=== PATIENT | male | born 1970 | race Caucasian/White ===

== ENCOUNTER 2017-08-23 16:29 | Emergency (ER) | payer MEDICAID, SELFPAY ==
[2017-08-23 16:47] VITALS: BP 145/91; PULSE 121; RESP 18; TEMP 37.6; O2SAT 99; BMI 36.1
[2017-08-23 17:16] LABS: Strep Scrn Group A (Rapid) Positive (Negative)
--- NOTE | 2017-08-23 17:54 | HMH.EDGENADL ---
ED Disposition Clinical Impression: Strep pharyngitis Disposition: Home, Self-Care Condition on Discharge: Good Instructions: DI for Strep Throat Additional Instructions: Please alternate Motrin Tylenol for pain control, plenty of fluids, take antibiotics prescribed as directed, follow-up with PCP if not better within 2 days. Prescriptions: Amoxicillin/Potassium Clav [Augmentin 875-125 Tablet] 1 tab PO Q12H #20 tab Referrals: Nick Mcrae [Primary Care Provider] - Time of Disposition: 18:00 - Critical Care Critical Care Time: No Attestation: On 08/23/17, the high probability of a clinically significant, sudden or life threatening deterioration of the following system(s) required my full and direct attention, intervention and personal management. The time I documented below is in addition to time spent performing reported procedures but includes the following listed in this critical care notation. Medical Decision Making - Medical Records Medical records reviewed: Yes: I reviewed the patient's medical records. Vital Signs: 08/23/17 16:47 Temperature 99.6 F Temperature Source Oral Pulse Rate [Right Brachial] 121 H Respiratory Rate 18 Blood Pressure [145/91] 145/91 Blood Pressure Mean [145/91] 109 Blood Pressure Source [145/91] Automatic Cuff Blood Pressure Position [145/91] Sitting 02 Sat by Pulse Oximetry 99 Oxygen Delivery Method Room Air - Lab Data Lab results reviewed: Yes: I reviewed the patient's lab results. Lab Results 08/23/17 16:45: Influenza Type A Ag Negative, Influenza Type B Ag Negative, Group A Strep Rapid Positive A - Gerson Inquiry Pt receiving controlled substance: No - Reevaluation(s) Time: 17:45 Reevaluation #1: Patient still complains with sore throat, advised of results, instructed to start immediately on Tylenol/Motrin and ill his antibiotics. Patient urged to return to the emergency room if not better within 2 days or follow-up with PCP. General Adult HPI - General Chief complaint: PAIN Stated complaint: Sore throat Mode of Arrival: Ambulatory Limitations: No Limitations Description of Symptoms (Recalled from ER Triage Doc. by RN): sore throat x 2 days - History of Present Illness HPI narrative: Patient is a 47-year-old male here with sore throat for the past 24 hours, and subjective fever Onset (ago): day(s) (1) Radiation: non-radiation Severity: moderate Severity scale (1-10): 8 Consistency: constant - Related Data Previous Rx's Medication Instructions Recorded Amoxicillin/Potassium Clav 1 tab PO Q12H #20 tab 08/23/17 [Augmentin 875-125 Tablet] Allergies Allergy/AdvReac Type Severity Reaction Status Date / Time NO KNOWN ALLERGIES Allergy Uncoded 07/04/17 14:37 [facility] History I have reviewed the patient's past medical history: Yes - *Social History Educational Level: Completed High School Alcohol Intake: never - Psychiatric History Expresses thoughts of harming self/others: None Suicide Plan Description: No Plan ROS Obtained: Yes All systems reviewed & no additional complaints - ENT Ears, Nose, Mouth, and Throat: Reports sore throat Physical Exam - General General appearance: alert, in distress (moderate) - Head Head exam: atraumatic, normocephalic, normal inspection - ENT ENT exam: Present: mucous membranes moist, TM's normal bilaterally, normal external ear exam, other (Originally female with whitish exudates) - Neck Neck exam: Present: normal inspection, full ROM, trachea midline, lymphadenopathy (Bilateral tender cervical adenopathy). Absent: meningismus - Chest Chest inspection: Present: normal inspection, symmetric chest wall rise. Absent: tenderness - Respiratory Respiratory exam: Present: normal lung sounds bilaterally. Absent: respiratory distress - Cardiovascular Cardiovascular exam: Present: regular rate, normal rhythm. Absent: JVD - Abdominal Exam Abdominal exam: Present:
--- NOTE | 2017-08-23 17:59 | ED_ITS ---
ED Disposition Clinical Impression: Strep pharyngitis Disposition: Home, Self-Care Condition on Discharge: Good Instructions: DI for Strep Throat Additional Instructions: Please alternate Motrin Tylenol for pain control, plenty of fluids, take antibiotics prescribed as directed, follow-up with PCP if not better within 2 days. Prescriptions: Amoxicillin/Potassium Clav [Augmentin 875-125 Tablet] 1 tab PO Q12H #20 tab Referrals: Nick Mcrae [Primary Care Provider] - Time of Disposition: 18:00 - Critical Care Critical Care Time: No Attestation: On 08/23/17, the high probability of a clinically significant, sudden or life threatening deterioration of the following system(s) required my full and direct attention, intervention and personal management. The time I documented below is in addition to time spent performing reported procedures but includes the following listed in this critical care notation. Medical Decision Making - Medical Records Medical records reviewed: Yes: I reviewed the patient's medical records. Vital Signs: 08/23/17 16:47 Temperature 99.6 F Temperature Source Oral Pulse Rate [Right Brachial] 121 H Respiratory Rate 18 Blood Pressure [145/91] 145/91 Blood Pressure Mean [145/91] 109 Blood Pressure Source [145/91] Automatic Cuff Blood Pressure Position [145/91] Sitting 02 Sat by Pulse Oximetry 99 Oxygen Delivery Method Room Air - Lab Data Lab results reviewed: Yes: I reviewed the patient's lab results. Lab Results 08/23/17 16:45: Influenza Type A Ag Negative, Influenza Type B Ag Negative, Group A Strep Rapid Positive A - Gerson Inquiry Pt receiving controlled substance: No - Reevaluation(s) Time: 17:45 Reevaluation #1: Patient still complains with sore throat, advised of results, instructed to start immediately on Tylenol/Motrin and ill his antibiotics. Patient urged to return to the emergency room if not better within 2 days or follow-up with PCP. General Adult HPI - General Chief complaint: PAIN Stated complaint: Sore throat Mode of Arrival: Ambulatory Limitations: No Limitations Description of Symptoms (Recalled from ER Triage Doc. by RN): sore throat x 2 days - History of Present Illness HPI narrative: Patient is a 47-year-old male here with sore throat for the past 24 hours, and subjective fever Onset (ago): day(s) (1) Radiation: non-radiation Severity: moderate Severity scale (1-10): 8 Consistency: constant - Related Data Previous Rx's Medication Instructions Recorded Amoxicillin/Potassium Clav 1 tab PO Q12H #20 tab 08/23/17 [Augmentin 875-125 Tablet] Allergies Allergy/AdvReac Type Severity Reaction Status Date / Time NO KNOWN ALLERGIES Allergy Uncoded 07/04/17 14:37 [facility] History I have reviewed the patient's past medical history: Yes - *Social History Educational Level: Completed High School Alcohol Intake: never - Psychiatric History Expresses thoughts of harming self/others: None Suicide Plan Description: No Plan ROS Obtained: Yes All systems reviewed & no additional complaints - ENT Ears, Nose, Mouth, and Throat: Reports sore throat Physical Exam - General General appearance: alert, in distress (moderate) - Head Head exam: atraumatic, normocephalic, normal inspec
[2017-08-23 18:35] VITALS: BP 132/75; PULSE 85; RESP 18; TEMP 36.7; O2SAT 98
== END 2017-08-23 18:34 | disposition home or self-care (01) ==
PROVIDERS: Emergency Provider Emergency Medicine; Family Provider Family Medicine; PCP Family Medicine
DX: J02.0 Streptococcal pharyngitis (principal)
CPT/HCPCS: 87275; 87276; 87430; 99203; 99281

== ENCOUNTER 2017-09-11 18:18 | Emergency (ER) | payer MEDICAID, SELFPAY ==
[2017-09-11 18:22] VITALS: BP 154/92; PULSE 109; RESP 26; TEMP 37.4; O2SAT 95
--- NOTE | 2017-09-11 18:26 | XR_ITS ---
XR chest 2V Ordering Physician: Harish Hernandez MD Patient Age: 47 years: Male HISTORY: ITS.REASON: dyspnea TECHNIQUE: PA and lateral chest COMPARISON : Chest film 03/03/[address] abdomen April 2012 FINDINGS \ . right chest Healing recent fractures of the posterior right sixth seventh and eighth ribs there is some associated density here which likely reflects some minimal pleural reaction or fluid adjacent to the fractures. No pneumothorax evident right lung apex Vascularity is upper normal. Heart normal size balwinder and mediastinal structures satisfactory Left chest healing eighth rib fracture noted. There is minimal density towards the left base which I suspect reflects mainly atelectasis. Difficult to exclude minimal wispy infiltrate at left base involving left lower lobe and possibly lingula as the left cardiac apex is obscured by these features.. A previous CT abdomen showed a moderate size calcified granuloma at the posterior left base which may add to appearance intensity medial left base as well . IMPRESSION: 1. Recent appearing healing rib fractures at the posterior right sixth, seventh & eighth ribs 2. Old remote healing fracture at the lateral eighth rib 3. Bibasilar atelectasis most evident at left base 4. Question minimal wispy infiltrate associated at the left base, LLL and possible lingula.
[2017-09-11 18:44] VITALS: PULSE 104; PULSE 99
[2017-09-11 19:02] LABS: Basophils # 0.1 K/mm3 (0-0.2); Basophils % 0.7 % (0.1-2.0); Eosinophils # 0.6 K/mm3 (0.0-0.4); Eosinophils % 5.1 % (0.1-12.0); Hemoglobin 15.2 g/dL (14.1-18.0); Lymphocytes # 1.6 K/mm3 (0.7-4.5); Lymphocytes % 13.4 K/mm3 (10-50); Mean Corpuscular HGB Conc 33.1 g/dL (31.8-35.4); Mean Corpuscular Hemoglobin 29.5 pg (27.0-31.2); Mean Corpuscular Volume 89.1 fl (80-94); Mean Platelet Volume 8.9 fl (7.4-10.4); Monocytes # 0.6 K/mm3 (0.1-1.0); Neutrophils # 8.8 K/mm3 (1.8-7.8); Neutrophils % 75.7 % (37.0-80.0); Platelet Count 223 K/mm3 (142-424); Red Blood Count 5.16 M/mm3 (4.60-6.20); Red Cell Distribution Width 13.8 % (11.5-17.5); White Blood Count 11.6 K/mm3 (4.8-10.8)
[2017-09-11 19:08] LABS: Lactic Acid 1.1 mmol/L (0.4-2.0)
[2017-09-11 19:12] LABS: Alanine Aminotransferase 53 U/L (12-78); Albumin Level 4.1 gm/dL (3.4-5.0); Albumin/Globulin Ratio 1.1 (1.1-1.8); Alkaline Phosphatase 94 U/L (46-116); Aspartate Amino Transferase 22 U/L (15-37); Bilirubin,Total 0.6 mg/dL (0.2-1.0); Blood Urea Nitrogen 15 mg/dL (7-18); Calcium 8.5 mg/dL (8.5-10.1); Carbon Dioxide 30 mmol/L (21.0-32.0); Chloride 103 mmol/L (98-107); Creatinine Clearance Estimated 145 mL/min (0-300); Creatinine,Serum 1.02 mg/dL (0.70-1.30); Estimated Glomerular Filt Rate 78 ml/min (>60); GFR (African American) 95 ML/MIN (>60); Globulin 3.9 gm/dl (1.3-3.2); Glucose 88 mg/dL (74-106); Sodium 140 mmol/L (136-145)
--- NOTE | 2017-09-11 20:01 | HMH.EDSOB ---
ED Disposition Clinical Impression: COPD exacerbation Acute bronchitis Qualifiers: Bronchitis organism: unspecified organism Qualified Code(s): J20.9 - Acute bronchitis, unspecified Disposition: Home, Self-Care Condition on Discharge: Good Instructions: DI for Chronic Obstructive Pulmonary Disease, DI for Acute Bronchitis Additional Instructions: Please quit smoking! Take the medications prescribed as directed, follow-up with PCP within 2 days for mandatory reevaluation. Prescriptions: levoFLOXacin [Levaquin 750mg tablet] 750 mg PO DAILY #10 tab predniSONE [Prednisone 20mg Tab] 20 mg PO TID #15 tab Referrals: Nick Mcrae [Primary Care Provider] - Time of Disposition: 20:10 - Critical Care Critical Care Time: No Attestation: On 09/11/17, the high probability of a clinically significant, sudden or life threatening deterioration of the following system(s) required my full and direct attention, intervention and personal management. The time I documented below is in addition to time spent performing reported procedures but includes the following listed in this critical care notation. Medical Decision Making - Medical Records Medical records reviewed: Yes: I reviewed the patient's medical records. Vital Signs: 09/11/17 18:22 09/11/17 18:44 Temperature 99.4 F Temperature Source Oral Pulse Rate 104 H Pulse Rate [Right Radial] 109 H Respiratory Rate 26 H Blood Pressure [Right Arm] 154/92 Blood Pressure Mean [Right Arm] 112 Blood Pressure Source [Right Arm] Automatic Cuff Blood Pressure Position [Right Arm] Sitting 02 Sat by Pulse Oximetry 95 Oxygen Delivery Method Room Air - Lab Data Lab results reviewed: Yes: I reviewed the patient's lab results. Lab Results 09/11/17 18:40: WBC 11.6 H, RBC 5.16, Hgb 15.2, Hct 46.0, MCV 89.1, MCH 29.5, MCHC 33.1, RDW 13.8, Plt Count 223, MPV 8.9, Neut % (Auto) 75.7, Lymph % (Auto) 13.4, [place] % (Auto) 5.0, Eos % (Auto) 5.1, Baso % (Auto) 0.7, Neut # (Auto) 8.8 H, Lymph # (Auto) 1.6, [place] # (Auto) 0.6, Eos # (Auto) 0.6 H, Baso # (Auto) 0.1 09/11/17 18:40: Sodium 140, Potassium 4.0, Chloride 103, Carbon Dioxide 30, Anion Gap 11.0, BUN 15, Creatinine 1.02, Estimated Creat Clear 145, Estimated GFR 78, Est GFR ( Amer) 95, Glucose 88, Calcium 8.5, Total Bilirubin 0.6, AST 22, ALT 53, Alkaline Phosphatase 94, Total Protein 8.0, Albumin 4.1, Globulin 3.9 H, Albumin/Globulin Ratio 1.1 09/11/17 18:40: Lactic Acid 1.1 09/11/17 18:40: Influenza Type A Ag Negative, Influenza Type B Ag Negative Result diagrams: 09/11/17 18:40 09/11/17 18:40 Orders (Tests/Meds): ED MEDICATIONS Discontinued Medications Generic Name Dose Route Start Last Admin Trade Name Freq PRN Reason Stop Dose Admin Acetaminophen 650 mg 09/11/17 19:42 09/11/17 19:49 Acetaminophen 325mg Tab PO 09/11/17 19:43 650 mg ONCE ONE Administration Albuterol/Ipratropium 3 ml 09/11/17 18:27 09/11/17 18:43 Duoneb 3ml Neb IH 09/11/17 18:28 3 ml ONCE ONE Administration Ceftriaxone Sodium 1 gm 09/11/17 18:26 09/11/17 19:35 Rocephin 1gm Vial IV 09/11/17 18:27 1 gm ONCE ONE Administration Lidocaine HCl 0 ml 09/11/17 18:26 09/11/17 18:39 Lidocaine 1% 10ml Mdv IM 09/11/17 18:27 Not Given ONCE ONE Methylprednisolone Sodium Succinate 125 mg 09/11/17 18:26 09/11/17 18:38 Solu-Medrol 125mg/2ml Vial IV 09/11/17 18:27 125 mg ONCE ONE Administration ORDERS Category Date Time Status Blood Culture Stat Micro 09/11/17 18:40 Received Sputum Culture & Gram Stain Stat Micro 09/11/17 19:35 Received - Radiology Data #1 Image(s): Chest Image Reviewed: Yes I reviewed the patient's radiology results, Yes I reviewed the patient's radiology image, Yes I discussed the image results w/the radiologist, Yes I have reviewed radiologist's interpretation Preliminary Findings: Normal/NAD - Gerson Inquiry Pt receiving controlled subs
--- NOTE | 2017-09-11 20:09 | ED_ITS ---
ED Disposition Clinical Impression: COPD exacerbation Acute bronchitis Qualifiers: Bronchitis organism: unspecified organism Qualified Code(s): J20.9 - Acute bronchitis, unspecified Disposition: Home, Self-Care Condition on Discharge: Good Instructions: DI for Chronic Obstructive Pulmonary Disease, DI for Acute Bronchitis Additional Instructions: Please quit smoking! Take the medications prescribed as directed, follow-up with PCP within 2 days for mandatory reevaluation. Prescriptions: levoFLOXacin [Levaquin 750mg tablet] 750 mg PO DAILY #10 tab predniSONE [Prednisone 20mg Tab] 20 mg PO TID #15 tab Referrals: Nick Mcrae [Primary Care Provider] - Time of Disposition: 20:10 - Critical Care Critical Care Time: No Attestation: On 09/11/17, the high probability of a clinically significant, sudden or life threatening deterioration of the following system(s) required my full and direct attention, intervention and personal management. The time I documented below is in addition to time spent performing reported procedures but includes the following listed in this critical care notation. Medical Decision Making - Medical Records Medical records reviewed: Yes: I reviewed the patient's medical records. Vital Signs: 09/11/17 18:22 09/11/17 18:44 Temperature 99.4 F Temperature Source Oral Pulse Rate 104 H Pulse Rate [Right Radial] 109 H Respiratory Rate 26 H Blood Pressure [Right Arm] 154/92 Blood Pressure Mean [Right Arm] 112 Blood Pressure Source [Right Arm] Automatic Cuff Blood Pressure Position [Right Arm] Sitting 02 Sat by Pulse Oximetry 95 Oxygen Delivery Method Room Air - Lab Data Lab results reviewed: Yes: I reviewed the patient's lab results. Lab Results 09/11/17 18:40: WBC 11.6 H, RBC 5.16, Hgb 15.2, Hct 46.0, MCV 89.1, MCH 29.5, MCHC 33.1, RDW 13.8, Plt Count 223, MPV 8.9, Neut % (Auto) 75.7, Lymph % (Auto) 13.4, [place] % (Auto) 5.0, Eos % (Auto) 5.1, Baso % (Auto) 0.7, Neut # (Auto) 8.8 H, Lymph # (Auto) 1.6, [place] # (Auto) 0.6, Eos # (Auto) 0.6 H, Baso # (Auto) 0.1 09/11/17 18:40: Sodium 140, Potassium 4.0, Chloride 103, Carbon Dioxide 30, Anion Gap 11.0, BUN 15, Creatinine 1.02, Estimated Creat Clear 145, Estimated GFR 78, Est GFR ( Amer) 95, Glucose 88, Calcium 8.5, Total Bilirubin 0.6 , AST 22, ALT 53, Alkaline Phosphatase 94, Total Protein 8.0, Albumin 4.1, Globulin 3.9 H, Albumin/Globulin Ratio 1.1 09/11/17 18:40: Lactic Acid 1.1 09/11/17 18:40: Influenza Type A Ag Negative, Influenza Type B Ag Negative Result diagrams: 09/11/17 18:40 09/11/17 18:40 Orders (Tests/Meds): ED MEDICATIONS Discontinued Medications Generic Name Dose Route Start Last Admin Trade Name Freq PRN Reason Stop Dose Admin Acetaminophen 650 mg 09/11/17 19:42 09/11/17 19:49 Acetaminophen 325mg Tab PO 09/11/17 19:43 650 mg ONCE ONE Administration Albuterol/Ipratropium 3 ml 09/11/17 18:27 09/11/17 18:43 Duoneb 3ml Neb IH 09/11/17 18:28 3 ml ONCE ONE Administration Ceftriaxone Sodium 1 gm 09/11/17 18:26 09/11/17 19:35 Rocephin 1gm Vial IV 09/11/17 18:27 1 gm ONCE ONE Administration Lidocaine HCl 0 ml 09/11/17 18:26 09/11/17 18:39 Lidocaine 1% 10ml Mdv IM 09/11/17 18:27 Not Given ONCE ONE Methylprednisolone Sodium Succinate 125 mg
[2017-09-11 20:21] VITALS: BP 120/68; PULSE 93; RESP 16; TEMP 37.1; O2SAT 98
[2017-09-11 20:23] VITALS: BP 120/68; PULSE 93; RESP 16; TEMP 36.6; O2SAT 93
== END 2017-09-11 20:28 | disposition home or self-care (01) ==
PROVIDERS: Emergency Provider Emergency Medicine; Family Provider Family Medicine; PCP Family Medicine
DX: J44.0 Chronic obstructive pulmonary disease with (acute) lower respiratory infection (principal); J20.9 Acute bronchitis, unspecified; F17.210 Nicotine dependence, cigarettes, uncomplicated; J44.1 Chronic obstructive pulmonary disease with (acute) exacerbation; Z79.899 Other long term (current) drug therapy
CPT/HCPCS: 71046; 80053; 83605; 85025; 87040; 87070; 87205; 87275; 87276; 96365; 96374; 99283

== ENCOUNTER 2018-08-18 15:54 | Observation (INO) ==
--- NOTE | 2018-08-18 16:11 | Emergency Department Note ---
ED Disposition Clinical Impression: COPD exacerbation, Tobacco abuse, Obesity (BMI 30-39.9), Hypertension, Non compliance with medical treatment, Left lower lobe pneumonia Disposition: Still a Patient Condition on Discharge: Fair Referrals: Nick Mcrae [Primary Care Provider] - - Critical Care Critical Care Time: No Attestation: On 08/18/18, the high probability of a clinically significant, sudden or life threatening deterioration of the following system(s) required my full and direct attention, intervention and personal management. The time I documented below is in addition to time spent performing reported procedures but includes the following listed in this critical care notation. Medical Decision Making - Gerson Inquiry Pt receiving controlled substance: No Gerson was queried for this patient: No Vital Signs: 08/18/18 15:59 Temperature 97.9 F Temperature Source Oral Pulse Rate [Right Radial] 92 H Respiratory Rate 20 Blood Pressure [Right Arm] 138/89 Blood Pressure Mean [Right Arm] 105 Blood Pressure Source [Right Arm] Automatic Cuff Blood Pressure Position [Right Arm] Sitting 02 Sat by Pulse Oximetry 96 Oxygen Delivery Method Room Air - Lab Data Lab Results 08/18/18 16:08: Influenza Type A Ag Negative, Influenza Type B Ag Negative 08/18/18 16:08: Group A Strep Rapid Negative 08/18/18 16:10: WBC 6.4, RBC 4.89, Hgb 14.6, Hct 44.0, MCV 89.9, MCH 29.8, MCHC 33.1, RDW 14.0, Plt Count 182, MPV 7.8, Neut % (Auto) 58.0, Lymph % (Auto) 26.7, [place] % (Auto) 6.6, Eos % (Auto) 7.7, Baso % (Auto) 0.9, Neut # (Auto) 3.7, Lymph # (Auto) 1.7, [place] # (Auto) 0.4, Eos # (Auto) 0.5 H, Baso # (Auto) 0.1 08/18/18 16:10: Sodium 141, Potassium 4.2, Chloride 105, Carbon Dioxide 27, Anion Gap 13.2, BUN 15, Creatinine 0.91, Estimated Creat Clear 172, Estimated GFR 89, Est GFR ( Amer) 108, Glucose 94, Calcium 8.8, Total Bilirubin 0.3, AST 26, ALT 54, Alkaline Phosphatase 67, Troponin I < 0.02, Total Protein 7.0, Albumin 3.5, Globulin 3.5 H, Albumin/Globulin Ratio 1.0 L 08/18/18 16:10: D-Dimer 175 08/18/18 16:10: B-Natriuretic Peptide 24 08/18/18 16:10: Lactate 0.5 Result diagrams: 08/18/18 16:10 08/18/18 16:10 Orders (Tests/Meds): ED MEDICATIONS Generic Name Dose Route Start Last Admin Trade Name Freq PRN Reason Stop Dose Admin Sodium Chloride 10 ml 08/18/18 16:06 Saline Flush 10ml Syringe IV 09/17/18 16:05 NEEDED PRN Maintain IV Site Discontinued Medications Generic Name Dose Route Start Last Admin Trade Name Freq PRN Reason Stop Dose Admin Albuterol/Ipratropium 3 ml 08/18/18 16:06 Duoneb 3ml Neb IH 08/18/18 16:07 ONCE ONE Famotidine 20 mg 08/18/18 16:06 08/18/18 16:18 Pepcid 20mg/2ml Vial IV 08/18/18 16:07 20 mg ONCE ONE Administration Ceftriaxone Sodium 1 gm/ 50 mls @ 100 mls/hr 08/18/18 16:12 08/18/18 16:18 Sodium Chloride IV 08/18/18 16:41 100 mls/hr ONCE ONE Administration Protocol Ketorolac Tromethamine 30 mg 08/18/18 16:05 08/18/18 16:18 Toradol 30mg/Ml Vial IV 08/18/18 16:06 30 mg ONCE ONE Administration Methylprednisolone Sodium Succinate 125 mg 08/18/18 16:05 08/18/18 16:18 Solu-Medrol 125mg/2ml Vial IV 08/18/18 16:06 125 mg ONCE ONE Administration ORDERS Category Date Time Status Chest XR 2 view (NOT portable) [XR chest 2V] Stat Exams 08/18/18 16:06 Taken Blood Culture Stat Micro 08/18/18 16:10 Received Strep Screen Confirmation Stat Micro 08/18/18 16:08 Received - Radiology Data #1 Image(s): Chest Image Reviewed: Yes I reviewed the patient's radiology image Preliminary Findings: Abnormal Left lower lobe atelectasis versus infiltrate. Medical Decision Narrative: I discussed with the patient's chest x-ray findings and lab results. We discussed inpatient versus outpatient treatment. The patient rather prefer to be admitted and get well soon. Called Dr. Ochoa refrigeration tech for unassigned agreed to admit the patient for IV steroids, IV antibiotics, he recommended Rocephin and Zithromax.. Resp/SOB HPI - General Chief Complaint: Shortness of Breath/Dyspnea Stated Complaint: SOB Time Seen by Provider: 08/18/18 16:00 Mode of Arrival: Ambulatory Limitations: No Limitations Description of Symptoms (Recalled from ER Triage Doc. by RN): Pt reports SOA x3 days pt reports symptoms got worse lastnight, reports he had a fever lastnight. Pt reports hx of COPD - History of Present Illness 28 years old white male with history of tobacco addiction, hypertension and COPD. The past 4 days he has been experiencing progressive shortness of breath, wheezing, cough and productive, wheezing, fever, chills and body aches. Today he presented to the ED complaining of sore throat and wanted to be checked for strep and influenza. A fever of 102 yesterday. Denies having chest pain palpitations hemoptysis hematemesis coffee-ground emesis melanotic stool or bleeding per rectum. He denies having nausea vomiting or diarrhea. MD Complaint: shortness of breath, cough Onset (ago): day(s) (Progressive for the past 4 days.) Consistency/Duration: constant Relieving factors: rest Exacerbating factors: exertion Known history of: COPD Associated symptoms: fever, cough, wheezing Treatment prior to arrival: bronchodilator - Related Data Home oxygen amount: none Home Medications Medication Instructions Recorded Confirmed Atorvastatin Calcium [Atorvastatin 20 mg PO DAILY 09/11/17 08/18/18 20mg Tab] Cholecalciferol (Vitamin D3) 10,000 unit PO DAILY 09/11/17 08/18/18 [Vitamin D3 10,000 unit Cap] Losartan Potassium 50 mg PO DAILY 09/11/17 08/18/18 clonazePAM [Klonopin 1mg tablet] 1 mg PO TID 09/11/17 08/18/18 Allergies Allergy/AdvReac Type Severity Reaction Status Date / Time No Known Allergies Allergy Verified 03/11/18 23:22 [facility] History - Hepatitis A Screen Drug use history?: No High risk sexual behaviors?: No History of sexually transmitted infection?: No Currently employed?: No Childcare worker?: No Do you have indoor plumbing?: Yes Do you have electricity?: Yes Attestation statement:: This patient has been screened for Hepatitis A risk factors. 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 Absent: scleral icterus, nystagmus - ENT ENT exam: Present: normal exam, normal oropharynx, mucous membranes moist, TM's normal bilaterally, normal external ear exam - Neck Neck exam: Present: normal inspection, full ROM, trachea midline. Absent: tenderness, meningismus, lymphadenopathy - Chest Chest inspection: Present: normal inspection, symmetric chest wall rise. Absent: tenderness - Respiratory Respiratory exam: Present: normal lung sounds bilaterally, wheezes, other ( Increased anteroposterior diameter, moderate air entry and mild expiratory wheezing over the left upper chest.). Absent: respiratory distress - Cardiovascular Cardiovascular exam: Present: regular rate, normal rhythm. Absent: JVD - Abdominal Exam Abdominal exam: Present: soft, normal bowel sounds. Absent: distention, tenderness, guarding, rebound, rigidity, Shaw's sign, tenderness at McBurney's Point, ascites - Extremities Exam Extremities exam: Present: normal inspection, full ROM, normal capillary refill. Absent: calf tenderness - Back Exam Back exam: Present: normal inspection. Absent: tenderness, CVA tenderness (R), CVA tenderness (L), paraspinal tenderness, vertebral tenderness - Neurological Exam Neurological exam: Present: alert, oriented X3, CN II-XII intact, motor sensory deficit, reflexes normal - Psychiatric Psychiatric exam: Present: normal affect, normal mood - Skin Skin exam: Present: warm, dry, intact, normal color - Lymphatic Lymphatic Findings: no adenopathy
[2018-08-18 16:23] LABS: Basophils # 0.1 K/mm3 (0-0.2); Basophils % 0.9 % (0.1-2.0); Eosinophils # 0.5 K/mm3 (0.0-0.4); Eosinophils % 7.7 % (0.1-12.0); Hemoglobin 14.6 g/dL (14.1-18.0); Lymphocytes # 1.7 K/mm3 (0.7-4.5); Lymphocytes % 26.7 % (10-50); Mean Corpuscular HGB Conc 33.1 g/dL (31.8-35.4); Mean Corpuscular Hemoglobin 29.8 pg (27.0-31.2); Mean Corpuscular Volume 89.9 fl (80-94); Mean Platelet Volume 7.8 fl (7.4-10.4); Monocytes # 0.4 K/mm3 (0.1-1.0); Monocytes % 6.6 % (1.7-9.3); Neutrophils # 3.7 K/mm3 (1.8-7.8); Platelet Count 182 K/mm3 (142-424); Red Blood Count 4.89 M/mm3 (4.60-6.20); White Blood Count 6.4 K/mm3 (4.8-10.8)
[2018-08-18 16:40] LABS: Alanine Aminotransferase 54 U/L (12-78); Albumin Level 3.5 gm/dL (3.4-5.0); Alkaline Phosphatase 67 U/L (46-116); Anion Gap 13.2 mEq/L (5-15); Aspartate Amino Transferase 26 U/L (15-37); Bilirubin,Total 0.3 mg/dL (0.2-1.0); Blood Urea Nitrogen 15 mg/dL (7-18); Calcium 8.8 mg/dL (8.5-10.1); Carbon Dioxide 27 mmol/L (21.0-32.0); Chloride 105 mmol/L (98-107); Globulin 3.5 gm/dl (1.3-3.2); Glucose 94 mg/dL (74-106); Potassium 4.2 mmoL/L (3.5-5.1); Sodium 141 mmol/L (136-145)
[2018-08-19 06:52] LABS: Basophils % 0.2 % (0.1-2.0); Hematocrit 43.6 % (42.0-52.0); Lymphocytes % 13.9 % (10-50); Mean Corpuscular HGB Conc 32.2 g/dL (31.8-35.4); Mean Corpuscular Hemoglobin 29.2 pg (27.0-31.2); Mean Corpuscular Volume 90.7 fl (80-94); Mean Platelet Volume 7.8 fl (7.4-10.4); Monocytes # 0.2 K/mm3 (0.1-1.0); Monocytes % 2.3 % (1.7-9.3); Neutrophils # 6.2 K/mm3 (1.8-7.8); Neutrophils % 83.5 % (37.0-80.0); Platelet Count 199 K/mm3 (142-424); Red Blood Count 4.81 M/mm3 (4.60-6.20); Red Cell Distribution Width 13.8 % (11.5-17.5); White Blood Count 7.5 K/mm3 (4.8-10.8)
[2018-08-19 06:59] LABS: Anion Gap 12.3 mEq/L (5-15); Calcium 8.7 mg/dL (8.5-10.1); Potassium 4.3 mmoL/L (3.5-5.1)
--- NOTE | 2018-08-19 07:02 | H&P/Discharge Summary ---
General - General Admission date:: 08/18/18 Discharge date: 08/19/18 *Admission Date: 08/19/18 *Chief complaint: Cough shortness of breath *History of present illness: 48-year-old male presented to the urgent treatment clinic yesterday with complaint of sore throat. Patient has history of COPD and was wheezing in the urgent treatment clinic and was later evaluated by the ER physician. Workup revealed atelectasis versus an infiltrate in the lingula. Patient was actively wheezing. O2 sats remained in the mid to high 90s but because of patient's persistent complaint of shortness of breath and feeling poorly he was admitted for observation and treatment of his pneumonia. Patient did not sleep well overnight because of his cough but does report that he is feeling slightly better this morning. 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) - *Social History Educational Level: Completed High School Smoking Status: Current every day smoker Tobacco Type: cigarettes # Packs/Day (cigarettes): 2 #Yrs smoked (if former smoker): 32 Alcohol Intake: never Alcohol Intake Frequency:: holidays/special occasions only Occupational Status: employed Housing: house Household Members: spouse Travel in the last 8 weeks: None - Psychiatric History Expresses thoughts of harming self/others: None Suicide Plan Description: No Plan Review of Systems - Review of Systems Review of systems:: pertinent systems reviewed and negative unless documented below - Constitutional Reports body ache(s), Reports fever(s), Reports headache(s), Denies chills - ENT Reports dry mouth, Reports headache(s), Denies difficulty swallowing, Denies ear discharge, Denies ear pain, Denies nosebleed - *Cardiovascular Denies chest pain - *Respiratory Denies change in phlegm color Exam Vital signs and Labs for Last 24 Hours: Temp Pulse Resp BP Pulse Ox 97.5 F L 95 H 20 144/91 H 94 L 08/19/18 04:00 08/19/18 04:00 08/19/18 04:00 08/19/18 04:00 08/19/18 04:00 Laboratory Results - last 24 hr 08/18/18 16:08: Influenza Type A Ag Negative, Influenza Type B Ag Negative 08/18/18 16:08: Group A Strep Rapid Negative 08/18/18 16:10: WBC 6.4, RBC 4.89, Hgb 14.6, Hct 44.0, MCV 89.9, MCH 29.8, MCHC 33.1, RDW 14.0, Plt Count 182, MPV 7.8, Neut % (Auto) 58.0, Lymph % (Auto) 26.7, [place] % (Auto) 6.6, Eos % (Auto) 7.7, Baso % (Auto) 0.9, Neut # (Auto) 3.7, Lymph # (Auto) 1.7, [place] # (Auto) 0.4, Eos # (Auto) 0.5 H, Baso # (Auto) 0.1 08/18/18 16:10: Sodium 141, Potassium 4.2, Chloride 105, Carbon Dioxide 27, Anion Gap 13.2, BUN 15, Creatinine 0.91, Estimated Creat Clear 172, Estimated GFR 89, Est GFR ( Amer) 108, Glucose 94, Calcium 8.8, Total Bilirubin 0.3, AST 26, ALT 54, Alkaline Phosphatase 67, Troponin I < 0.02, Total Protein 7.0, Albumin 3.5, Globulin 3.5 H, Albumin/Globulin Ratio 1.0 L 08/18/18 16:10: D-Dimer 175 08/18/18 16:10: B-Natriuretic Peptide 24 08/18/18 16:10: Lactate 0.5 08/19/18 06:25: WBC 7.5, RBC 4.81, Hgb 14.0 L, Hct 43.6, MCV 90.7, MCH 29.2, MCHC 32.2, RDW 13.8, Plt Count 199, MPV 7.8, Neut % (Auto) 83.5 H, Lymph % (Auto) 13.9, [place] % (Auto) 2.3, Eos % (Auto) 0.0 L, Baso % (Auto) 0.2, Neut # (Auto) 6.2, Lymph # (Auto) 1.0, [place] # (Auto) 0.2, Eos # (Auto) 0.0, Baso # (Auto) 0.0 I & O for Last 24 hours: Intake & Output 08/16/18 08/17/18 08/18/18 08/19/18 11:59 11:59 11:59 11:59 Intake Total 50 / 50 Balance 50 / 50 Weight 269 lb 9 oz Narrative: Patient is awake and alert sitting up on the side of the bed. He looks tired but not ill. ENT exam is grossly normal. Neck is without lymphadenopathy. Lungs have diffuse faint end expiratory wheezes. Heart has a regular rate and rhythm. Abdomen is obese and soft. Motor function is intact in all extremities Hospital Course Hospital Course: Patient was admitted placed on IV Solu-Medrol, Rocephin and azithromycin and duo nebs. Patient got some relief from aerosols. By the following morning (August 19) patient was feeling better. He remained afebrile. His O2 sats had remained in the mid to high 90s. On exam patient had faint wheezing but no focal rales. Patient was discharged home and will follow up with his physician Dr. Marcelo within the next 3 days Results Labs on day of discharge: Labs from last 24 hours 08/19/18 08/18/18 08/18/18 06:25 16:10 16:10 WBC 7.5 RBC 4.81 Hgb 14.0 L Hct 43.6 MCV 90.7 MCH 29.2 MCHC 32.2 RDW 13.8 Plt Count 199 MPV 7.8 Neut % (Auto) 83.5 H Lymph % (Auto) 13.9 [place] % (Auto) 2.3 Eos % (Auto) 0.0 L Baso % (Auto) 0.2 Neut # (Auto) 6.2 Lymph # (Auto) 1.0 [place] # (Auto) 0.2 Eos # (Auto) 0.0 Baso # (Auto) 0.0 D-Dimer Sodium Potassium Chloride Carbon Dioxide Anion Gap BUN Creatinine Estimated Creat Clear Estimated GFR Est GFR ( Amer) Glucose Lactate 0.5 Calcium Total Bilirubin AST ALT Alkaline Phosphatase Troponin I B-Natriuretic Peptide 24 Total Protein Albumin Globulin Albumin/Globulin Ratio Influenza Type A Ag Influenza Type B Ag Group A Strep Rapid 08/18/18 08/18/1808/18/19 16:10 16:10 16:10 WBC 6.4 RBC 4.89 Hgb 14.6 Hct 44.0 MCV 89.9 MCH 29.8 MCHC 33.1 RDW 14.0 Plt Count 182 MPV 7.8 Neut % (Auto) 58.0 Lymph % (Auto) 26.7 [place] % (Auto) 6.6 Eos % (Auto) 7.7 Baso % (Auto) 0.9 Neut # (Auto) 3.7 Lymph # (Auto) 1.7 [place] # (Auto) 0.4 Eos # (Auto) 0.5 H Baso # (Auto) 0.1 D-Dimer 175 Sodium 141 Potassium 4.2 Chloride 105 Carbon Dioxide 27 Anion Gap 13.2 BUN 15 Creatinine 0.91 Estimated Creat Clear 172 Estimated GFR 89 Est GFR ( Amer) 108 Glucose 94 Lactate Calcium 8.8 Total Bilirubin 0.3 AST 26 ALT 54 Alkaline Phosphatase 67 Troponin I < 0.02 B-Natriuretic Peptide Total Protein 7.0 Albumin 3.5 Globulin 3.5 H Albumin/Globulin Ratio 1.0 L Influenza Type A Ag Influenza Type B Ag Group A Strep Rapid 08/18/18 08/18/18 16:08 16:08 WBC RBC Hgb Hct MCV MCH MCHC RDW Plt Count MPV Neut % (Auto) Lymph % (Auto) [place] % (Auto) Eos % (Auto) Baso % (Auto) Neut # (Auto) Lymph # (Auto) [place] # (Auto) Eos # (Auto) Baso # (Auto) D-Dimer Sodium Potassium Chloride Carbon Dioxide Anion Gap BUN Creatinine Estimated Creat Clear Estimated GFR Est GFR ( Amer) Glucose Lactate Calcium Total Bilirubin AST ALT Alkaline Phosphatase Troponin I B-Natriuretic Peptide Total Protein Albumin Globulin Albumin/Globulin Ratio Influenza Type A Ag Negative Influenza Type B Ag Negative Group A Strep Rapid Negative Discharge Medications - Medications for Discharge Home Medication List at Discharge: No Action Losartan Potassium 50 mg PO DAILY Atorvastatin Calcium [Atorvastatin 20mg Tab] 20 mg PO DAILY clonazePAM [Klonopin 1mg tablet] 1 mg PO TID Cholecalciferol (Vitamin D3) [Vitamin D3 10,000 unit Cap] 10,000 unit PO DAILY Disposition Disposition: Home, Self-Care
== END 2018-08-19 15:21 | disposition home or self-care (01) ==
LOC: 2ND 15:54 → ER 15:54 → 2ND 18:30
PROVIDERS: ADMIT Family Medicine; ATTEND Family Medicine
CPT/HCPCS: 36415; 71020; 71046; 80048; 80053; 83605; 83880; 84484; 85025; 85378; 87040; 87070; 87205; 87275; 87276; 87430; 90686; 96374; 96375; 99281; G0378; J0456

== ENCOUNTER → 2019-02-06 09:30 | Outpatient (CLI) | payer MEDICAID, SELFPAY ==
--- NOTE | 2019-02-06 09:41 | US_ITS ---
US abdomen limited History: Ordering Physician:Quirino Triana Patient Age: 48 years Comparison:None Findings:The visualized portions of the pancreas and IVC appear normal. Common bile duct is normal measuring 3.6 mm. There is diffuse increased echogenicity throughout the liver without focal abnormality. Visualized portions of the gallbladder and right kidney are normal. Portal vein is patent. Impression: No acute gallbladder process. Fatty infiltration or fibrosis of the liver.
--- NOTE | 2019-02-06 09:41 | NM_ITS ---
NM hepatobiliary w pharm HISTORY: ITS.REASON: GB PAIN, GB DISEASE ORDERING PHYSICIAN: Quirino Triana PATIENT AGE: 48 years COMPARISON: 02/06/2019. DOSE: 8.0 mCi of technetium 99m Choletec. FINDINGS: Homogeneous activity is present within the hepatic parenchyma. Activity is present in the gallbladder by 5 minutes.. Activity is present in the small bowel by 45 minutes.. The gallbladder ejection fraction is calculated to be 76%. The patient did not report pain or other symptoms during CCK infusion. IMPRESSION: Unremarkable hepatobiliary scan and gallbladder ejection fraction. No evidence of common or cystic duct obstruction with normal gallbladder ejection fraction
== END ==
PROVIDERS: PCP Family Medicine; Visit Provider Family Medicine
DX: R10.11 Right upper quadrant pain (principal); K82.9 Disease of gallbladder, unspecified
CPT/HCPCS: 76705; 78227; A9537; J2805

== ENCOUNTER 2020-11-03 12:37 | Observation (INO) | payer OTHER, SELFPAY ==
[2020-11-03] VITALS (10 sets, daily range): BP systolic 105–149; BP diastolic 68–97; PULSE 64–91; RESP 16–20; TEMP 36.3–36.9; O2SAT 95–99; BMI 39.3; BMI 38.6
--- NOTE | 2020-11-03 12:31 | ECG_ITS ---
APPROVED REPORT Exam: Resting ECG HR:89 bpm ECG Measurements Heart Rate 89 AXES CO 112 P 51 QRSd 100 QRS 86 QT 362 T 49 QTc 440 Conclusion Normal sinus rhythm Normal ECG Electronically signed by : Tarun Osuna, 11/04/2020 17:35:22
--- NOTE | 2020-11-03 12:40 | XR_ITS ---
PROCEDURE: XR CHEST 2V CLINICAL HISTORY: chest tightness COMPARISON: CR CXR2V XR chest 2V from 03/11/2018 CR CXR2V XR chest 2V from 08/18/2018 CR Chest from 12/23/2018 FINDINGS: The cardiomediastinal silhouette and pulmonary vascularity are within normal limits. The lungs are clear without infiltrates, suspicious nodules, or pleural effusions. Scarring at the left cardiophrenic angle as noted previously. Stable old healed fractures the right 6th and 7th and possibly 8th ribs posteriorly No acute bony abnormalities. There are moderate multilevel degenerate changes of the mid and lower thoracic spine. IMPRESSION: No acute findings. Dictated by: Dr. Harish Grimaldo MD 11/03/2020 13:14 Dr. Harish Grimaldo MD in [place] 11/03/2020 13:14
--- NOTE | 2020-11-03 12:42 | HMH.EDGENADL ---
ED Disposition Clinical Impression: Angina pectoris Disposition: Admitted as Observation Condition on Discharge: Good Referrals: Quirino Triana [Primary Care Provider] - - Critical Care Critical Care Time: No Attestation: On , the high probability of a clinically significant, sudden or life threatening deterioration of the following system(s) required my full and direct attention, intervention and personal management. The time I documented below is in addition to time spent performing reported procedures but includes the following listed in this critical care notation. Medical Decision Making - Medical Records Medical records reviewed: Yes: I reviewed the patient's medical records. MR Comment: Normal gallbladder ultrasound and hepatobiliary scan January 2019 - [place] Inquiry Pt receiving controlled substance: No Vital Signs: 11/03/20 12:39 11/03/20 13:00 11/03/20 14:22 Temperature 97.4 F L Temperature Source Oral Pulse Rate 74 71 Pulse Rate [Right Radial] 91 H Respiratory Rate 18 17 Blood Pressure 140/89 149/94 H Blood Pressure [Right Arm] 144/97 H Blood Pressure Mean 103 Blood Pressure Mean [Right Arm] 112 Blood Pressure Source [Right Arm] Automatic Cuff Blood Pressure Position [Right Arm] Sitting 02 Sat by Pulse Oximetry 99 97 98 Oxygen Delivery Method Room Air - Lab Data Lab Results 11/03/20 12:42: WBC 10.0, RBC 5.58, Hgb 16.5, Hct 50.8, MCV 91.2, MCH 29.6, MCHC 32.5, RDW 14.0, Plt Count 229, MPV 8.5, Neut % (Auto) 64.9, Lymph % (Auto) 25.8, [place] % (Auto) 4.6, Eos % (Auto) 3.2, Baso % (Auto) 1.5, Neut # (Auto) 6.5, Lymph # (Auto) 2.6, [place] # (Auto) 0.5, Eos # (Auto) 0.3, Baso # (Auto) 0.2 11/03/20 12:42: Sodium 138, Potassium 4.2, Chloride 104, Carbon Dioxide 26, Anion Gap 12.2, BUN 14, Creatinine 1.00, Estimated Creat Clear 155, Estimated GFR 79, Est GFR ( Amer) 96, Glucose 114 H, Calcium 9.3, Troponin I < 0.01 11/03/20 12:42: NT-Pro-B Natriuret Pep 12.3 11/03/20 12:42: Total Bilirubin 0.8, Direct Bilirubin 0.2, Conjugated Bilirubin 0.0, Indirect Bilirubin 0.6, Unconjugated Bilirubin 0.7, AST 52, ALT 83 H, Alkaline Phosphatase 68, Total Protein 7.6, Albumin 4.6, Lipase 104 Result diagrams: 11/03/20 12:42 11/03/20 12:42 Orders (Tests/Meds): ED MEDICATIONS Generic Name Dose Route Start Last Admin Trade Name Freq PRN Reason Stop Dose Admin Metoprolol Tartrate 25 mg 11/03/20 21:00 Metoprolol Tartrate 25mg Tablet PO 12/03/20 20:59 BID CARITO Discontinued Medications Generic Name Dose Route Start Last Admin Trade Name Freq PRN Reason Stop Dose Admin Aspirin 324 mg 11/03/20 13:02 11/03/20 13:20 Aspirin 81mg Chewable Tablet PO 11/03/20 13:03 324 mg ONCE ONE Administration Ticagrelor 180 mg 11/03/20 14:15 11/03/20 14:20 Ticagrelor 90mg Tablet PO 11/03/20 14:16 180 mg ONCE ONE Administration ORDERS Category Date Time Status Consult to Cardiology [CONS] Routine Cons 11/03/20 13:01 Active Full Resp Panel w/COVID ([facility]) Routine Lab 11/03/20 14:24 Received Troponin I Q3H Lab 11/03/20 15:45 Ordered Troponin I Q3H Lab 11/03/20 18:45 Ordered - ECG Data Tracing #1 EKG interpreted by David Childers MD: Rhythm: sinus Rate: 89 [place]: normal Ectopy: none Conduction: normal ST Segment Changes: none T Wave Changes: none Q Waves: none No evidence of acute ischemia or injury Normal electrocardiogram - Physician Consults Physician Consulted: IDALIA Robles, for Dr. Lee Time: 13:50 Reason -: Cardiology Eval/Care Comment/Response: Present seeing patient. Patient to be admitted. Metoprolol 25 mg twice daily, Brilinta 180 mg, n.p.o. after midnight. Additional Consult: Don Time: 14:37 Reason -: Admission Comment/Response: Agrees to admit the patient to the hospital. We discussed the patient's clinical information, including history, exam, laboratory and radiology results and ED course. Per hospital procedure, I
[2020-11-03 12:59] LABS: Anion Gap 12.2 mEq/L (5-15); Blood Urea Nitrogen 14 mg/dl (9-20); Calcium 9.3 mg/dl (8.4-10.2); Carbon Dioxide 26 mmol/L (22.0-30.0); Chloride 104 mmol/L (98-107); Creatinine Clearance Estimated 155 mL/min (50-200); Estimated Glomerular Filt Rate 79 ml/min (>60); GFR (African American) 96 ML/MIN (>60); Glucose 114 mg/dl (74-100); Potassium 4.2 mmoL/L (3.5-5.1); Sodium 138 mmol/L (136-145)
[2020-11-03 13:03] LABS: Basophils # 0.2 K/mm3 (0-0.2); Basophils % 1.5 % (0.1-2.0); Eosinophils # 0.3 K/mm3 (0.0-0.4); Eosinophils % 3.2 % (0.1-12.0); Hematocrit 50.8 % (42.0-52.0); Hemoglobin 16.5 g/dL (14.1-18.0); Lymphocytes # 2.6 K/mm3 (0.7-4.5); Lymphocytes % 25.8 % (10-50); Mean Corpuscular HGB Conc 32.5 g/dL (31.8-35.4); Mean Corpuscular Hemoglobin 29.6 pg (27.0-31.2); Mean Corpuscular Volume 91.2 fl (80-94); Mean Platelet Volume 8.5 fl (7.4-10.4); Monocytes # 0.5 K/mm3 (0.1-1.0); Monocytes % 4.6 % (1.7-9.3); Neutrophils # 6.5 K/mm3 (1.8-7.8); Neutrophils % 64.9 % (37.0-80.0); Platelet Count 229 K/mm3 (142-424); Red Blood Count 5.58 M/mm3 (4.60-6.20)
[2020-11-03 13:20] LABS: Bilirubin,Unconjugated 0.7 mg/dL (0.0-1.1)
[2020-11-03 13:21] LABS: Alanine Aminotransferase 83 U/L (12-78); Albumin Level 4.6 g/dl (3.5-5.0); Alkaline Phosphatase 68 U/L (38-126); Aspartate Amino Transferase 52 U/L (17-59); Bilirubin,Direct 0.2 mg/dl (0.0-0.4); Bilirubin,Indirect 0.6 mg/dL (0.0-0.9); Bilirubin,Total 0.8 mg/dl (0.2-1.3); Lipase 104 U/L (23-300); Total Protein,Serum 7.6 g/dl (6.3-8.2)
[2020-11-03 13:31] LABS: NT Pro Brain Natriuretic Pep. 12.3 pg/mL (0-125)
[2020-11-03 13:40] LABS: Troponin I < 0.01 ng/ml (0.00-0.034)
--- NOTE | 2020-11-03 14:02 | PC.NURSE ---
Chong Mayorga consuting pt
--- NOTE | 2020-11-03 14:15 | CA_ITS ---
APPROVED REPORT EXAM: Comprehensive 2D, Doppler, and color-flow Echocardiogram Mechanical Engineering Manager: Mayda Cavanaugh RT(R) Ht: 5 ft 10 in Wt: 274lbs BSA: 2.39 BP: 140/89 mmHg Indications: COPD, smoker, chest tightness 2D Dimensions IVSd 0.99 cm LVEF (Visual) 44.10 % PWd 1.02 cm LA Volume 47.40 mL LVDd 4.60 cm LA Volume Index 19.465036 mL/m2 (M/F) 16-34 LVDs 3.60 cm LVOT 1.94 cm (M/F) 1.5-2.5 M-Mode Dimensions LA Diam 3.75 cm (1.9-4.0) Ao Diam 3.39 cm (2.0-3.7) EPSs 0.91 cm TAPSE 2.09 (<1.7) LV Diastology E Decel Time 217.00 (160-240 msec) E/A Ratio 1.21 MED E' 9.90 (< 7 cm/sec) MED A' 8.10 cm/s E'/MED E' Ratio 7.26 (>14) LAT E' 11.00 (<10 cm/sec) LAT A' 8.70 cm/s E/LAT E' Ratio 6.54 (>14) Aortic Valve LVOT Max 103.00 (70-110 cm/s) LVOT VTI 21.14 cm AoV Peak Benedicto. 142.00 (50-130 cm/s) AO Peak GR. 8.10 mmHg AO Mean GR. 4.00 (<5 mmHg) AO VTI 25.86 (18-25 cm) MARIAN (VTI) 2.42 (2.5-4.5 cm2) Mitral Valve MV A Velocity 59.00 (40-130 cm/s) E/A Ratio 1.21 MV Decel. Time 217.00 (160-240 ms) Pulmonary Valve PV Peak Velocity 85.00 (50-150 cm/s) Tricuspid Valve TR P. Velocity 215.00 cm/s RAP Estimate 10.00 mmHg RVSP 28.50 mmHg Left Ventricle Technically difficult study because of the patient factors and poor acoustic windows, endocardial surfaces are poorly visualized. Left atrium is normal size, left ventricle is normal size, visually estimated ejection fraction approximately 45 to 50% with no obvious regional wall motion abnormality, diastolic parameters are inconclusive. Right Ventricle Right atrium and right ventricle are normal size and contractility. Aortic Valve Aortic valve is minimally thickened and fibrosed, there is no aortic stenosis or aortic insufficiency. Mitral Valve Mitral valve is grossly normal, there is trace mitral regurgitation. Tricuspid Valve Tricuspid grossly normal, there is trace tricuspid regurgitation, tricuspid regurgitation jet velocity is inadequate for calculation of the right ventricular systolic pressure. Pulmonic Valve Pulmonic valve is poorly visualized. Great Vessels Aortic root is normal size. Pericardium No significant pericardial effusion noted. Conclusion 1. Technically difficult study because of the patient factors and poor acoustic windows, normal left ventricular size, visually estimated ejection fraction 45 to 50% with no obvious regional wall motion abnormality, endocardial surfaces are poorly visualized, diastolic parameters are inconclusive. 2. Trace mitral and tricuspid regurgitation. 3. No significant pericardial effusion noted. Electronically signed by : Diaz Hogan, 11/03/2020 19:10:51
--- NOTE | 2020-11-03 14:18 | PC.NURSE ---
dr wood called
--- NOTE | 2020-11-03 14:19 | HMH.CNCARD ---
History of Present Illness Consult date: 11/03/20 Consult reason: chest pain, shortness of breath Chief complaint: SOA, chest tightness Additional Medical History:: 1. Tobacco use, 2 packs/day for 30 years A. COPD and asthma with intermittent inhaler use 2. Hypertension 3. Hyperlipidemia, intermittently noncompliant due to myalgias related to statin therapy (simvastatin, atorvastatin) 4. Family history of coronary disease in his mother who at 53 5. 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 Intermittent chest pressure and tingling in his arms, especially the left, lasting an hour or 2. Had an episode this morning that lasted an hour or 2, but states he has no chest pressure at present. Denies history of heart disease. Says that he had a stress test in his 30s, but no cardiac evaluation since. He is a smoker and has hyperlipidemia and hypertension. His mother at 53 of heart disease and his father had coronary artery disease with his first HI in his 50s. Chronically short of breath from COPD. Also states that he had Covid in August. States he has chronic problems with his gallbladder, intermittent spasms of the abdomen, recurrent swelling of the legs that usually gets better with a cortisone shot from his primary care provider, but the most recent cortisone shot he had did not seem to help. Swelling is only mild at present. The above per Dr. Childers Patient relates decrease in his exertional ability over the last several years but more rapidly in the last couple of weeks to the point that he cannot carry groceries from the car to the house without having to stop due to significant shortness of breath. Occasional chest tightness noted but with some bilateral upper extremity numbness and tingling left greater than right. He denies any associated nausea or diaphoresis. Symptoms improve with rest but recur with return to activity. Patient is very concerned due to his significant family history in both of his parents with heart disease in their 50s. His father last year in his 80s after discontinuing dialysis. He is also under an extreme amount of emotional stress regarding raising both his children and grandchildren and having to place one of his children in drug rehab therapy this week. Patient relates a sense of doom surrounding his health and is very concerned about having heart disease. The patient's is accompanying him today and has noted a significant decline in his energy and ability to exert himself in the last 2 weeks. Initial troponin is normal and EKG is sinus with no acute ST segment changes. Cardiology consulted for evaluation and recommendations. 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) - *Social History Smoking Status: Current every day smoker Tobacco Type: cigarettes # Packs/Day (cigarettes): 1 #Yrs smoked (if former smoker): 32 Alcohol Intake: never Alcohol Intake Frequency:: holidays/special occasions only *Occupational Status:: other Housing: house Household Members: spouse *Travel in the last 8 weeks: None Family Hx:: Coronary Artery Disease, Heart Attack, Hyperlipidemia, Hypertension, Kidney Disease Meds Home Medications Medication Instructions Recorded Confirmed Type Atorvastatin Calcium [Lipitor 20mg 20 mg PO DAILY 09/11/17 11/03/20 History Tab] Cholecalciferol (Vitamin D3) 10,000 unit PO DAILY 09/11/17 11/03/20 History [Vitamin D3 10,000 unit Cap] Losartan Potassium 50 mg PO DAILY 09/11/17 11/03/20 History clonazePAM [
[2020-11-03 14:35] LABS: Adenovirus,PCR Not Detected (NotDetected); Coronavirus 229E Not Detected (NotDetected); Coronavirus NL63 Not Detected (NotDetected); Coronavirus OC43 Not Detected (NotDetected); Coronovirus HKU1,PCR Not Detected (NotDetected); Human Metapneumovirus Not Detected (NotDetected); Rhinovirus/Enterovirus Not Detected (NotDetected)
--- NOTE | 2020-11-03 14:35 | PC.NURSE ---
Dr Childers speaking with Dr Ochoa
--- NOTE | 2020-11-03 14:37 | PC.NURSE ---
Case Management called for admission
--- NOTE | 2020-11-03 14:45 | PC.NURSE ---
CV lab at bedside
--- NOTE | 2020-11-03 15:31 | HMH.PHAINT ---
home medication list verified using list from [facility] and pt interview by ER nurses
--- NOTE | 2020-11-03 15:33 | HMH.PHAVTE ---
[facility] Pharmacy VTE Monitoring - Patient Demographics Admission date: 11/03/20 Report Date: 11/03/20 Time: 15:33 Allergies/Adverse Reactions: Patient Allergies No Known Allergies Allergy (Verified 03/11/18 23:22) Height: 1.78 m Weight: 124.284 kg Patient Problems: Current Active Problems Tobacco abuse (Acute) Obesity (BMI 30-39.9) (Acute) Hypertension (Acute) COPD (chronic obstructive pulmonary disease) (Acute) Accelerating angina (Acute) Dyspnea on exertion (Acute) Tobacco use disorder, continuous (Acute) Family history of coronary artery disease in father (Acute) Family history of coronary artery disease in mother (Acute) Angina pectoris (Acute) - VTE Risk Labs: VTE Related Lab Results Hgb 16.5 g/dL (14.1-18.0) 11/03/20 12:42 Hct 50.8 % (42.0-52.0) 11/03/20 12:42 Plt Count 229 K/mm3 (142-424) 11/03/20 12:42 BUN 14 mg/dl (9-20) 11/03/20 12:42 Creatinine 1.00 mg/dl (0.66-1.25) 11/03/20 12:42 Estimated Creat Clear 155 mL/min (50-200) 11/03/20 12:42 Clinical Trial Participant: No - Prophylaxis VTE Prophylaxis Ordered?: Yes Types of VTE Prophylaxis: TEDS Knee High
[2020-11-03 16:13] LABS: Bordetella Pertussis Not Detected (NotDetected); Chlamydophila Pneumoniae, PCR Not Detected (NotDetected); Coronavirus 19, PCR Not Detected (NotDetected); Influenza A, PCR Not Detected (NotDetected); Influenza AH1, 2009 Not Detected (NotDetected); Influenza AH1, PCR Not Detected (NotDetected); Influenza AH3,PCR Not Detected (NotDetected); Influenza B, PCR Not Detected (NotDetected); Mycoplasma Pneumoniae, PCR Not Detected (NotDetected); Parainfluenza 1, PCR Not Detected (NotDetected); Parainfluenza 2, PCR Not Detected (NotDetected); Parainfluenza 3, PCR Not Detected (NotDetected); Parainfluenza 4, PCR Not Detected (NotDetected); Respiratory Syncytial Virus Not Detected (NotDetected)
[2020-11-03 16:37] LABS: Troponin I < 0.01 ng/ml (0.00-0.034)
--- NOTE | 2020-11-03 16:52 | PC.NURSE ---
attempted to call report to second floor, no answer from primary receiving nurse.
--- NOTE | 2020-11-03 17:13 | PC.NURSE ---
report called to Roni Doll RN on second floor at this time.
--- NOTE | 2020-11-03 17:31 | PC.NURSE ---
pt arrived to floor at this time.
[2020-11-03 19:19] LABS: Troponin I < 0.01 ng/ml (0.00-0.034)
--- NOTE | 2020-11-03 19:27 | PC.NURSE ---
HE IS AOX4, TOLERATING RA, VITAL SIGNS STABLE, DENIES CHEST PAIN, NO NEEDS AT THIS TIME.
[2020-11-04] VITALS (21 sets, daily range): BP systolic 93–148; BP diastolic 65–92; PULSE 54–74; RESP 14–20; TEMP 36.4; O2SAT 97–100; BMI 38.0
--- NOTE | 2020-11-04 | IR_ITS ---
APPROVED REPORT Patient Location: Inpatient PROCEDURES Left heart catheterization Left ventriculogram Selective coronary angiogram Drug-eluting stent deployment to the proximal mid and distal dominant right coronary in a contiguous manner Drug-eluting stent deployment to the proximal and mid LAD in a contiguous manner INDICATION Unstable angina, High pretest likelihood for coronary disease Informed consent was obtained prior to the procedure. COMPLICATIONS NONE Estimated Blood Loss: LESS THAN 10 MLS TECHNIQUE One percent lidocaine used to anesthetize the right anterior aspect of the wrist. The right radial artery was accessed via the Seldinger technique. A 6 Hungarian sheath was placed in the right radial artery. 2.5 mg of verapamil, 800 mcg of nitroglycerin, 1mg Lidocaine and 5000 U Heparin were given through the arterial sheath. The trap catheter was also used to perform left heart catheterization, left ventriculogram and selective coronary angiogram. At the end of the diagnostic procedure therapeutic heparin was administered and the catheter was kept in the right coronary artery. Choice PT extra-support wire was placed distally were primary stenting could not be performed therefore a 2.5 x 12 mm balloon was used to predilate the stenosis. A 3 mm x 38 mm resolute [place] drug-eluting stent was deployed in the distal right coronary artery and deployed at 16 tameka. A 3 mm x 26 mm resolute mayank stent was then placed proximal to this and deployed at 24 tameka reducing the critical stenosis to 0%. BRITTNEY-3 flow was present before and after the procedure. At the end of the procedure the apparatus was removed the catheter was placed in the left main artery where a Choice PT wire was placed distally in the LAD. A 3 mm x 38 mm resolute Mayank stent was deployed at 16 tameka reducing the critical stenosis to 0%. A 3.5 x 18 mm resolute [place] stent was then deployed proximal to the first stent yet overlapping it at 24 tameka to reduce the proximal stenosis. BRITTNEY-3 flow was present before and after the procedure. At the end of the procedure BRITTNEY-3 flow was present down the LAD septal perforators and diagonal arteries. After achieving excellent angiographic results repeat shot was performed to the right coronary artery which demonstrated wide patency with excellent results therefore the apparatus was removed the sheath was removed and hemostasis was achieved using TR banding patient was transferred to the postop holding in stable condition ANGIOGRAPHIC RESULTS The left main artery Normal The left anterior descending artery Has critical proximal and mid LAD disease greater than 90% with a ruptured plaque and suggestion of a thrombus. The circumflex artery Is a large codominant vessel with proximal 30% stenosis and a 50% stenosis throughout the proximal midportion of a moderate-sized first obtuse marginal artery The right coronary artery Is a codominant vessel and has proximal 30% followed by mid vessel greater than 90% stenosis with tubular 40 to 50% stenosis distal to the 90% stenosis The WILSON ventriculogram reveals Not performed The left ventricular end-diastolic pressure Not measured IMPRESSION Critical two-vessel coronary artery disease as described above Successful stenting of the proximal mid to distal right coronary artery critical disease reduced to 0% with 2 drug-eluting stents in a contiguous manner Successful stenting of the proximal to mid LAD critical disease reduced to 0% with 2 drug-eluting stents placed in a contiguous manner Persistent moderate stenosis in a large obtuse marginal artery PLAN 1. Dual antiplatelet therapy 2. LDL less than 55 3. Cardiac rehabilitation 4. Aggressive risk factor modifi
--- NOTE | 2020-11-04 06:22 | PC.NURSE ---
patient rested with eyes closed most of this shift with no concerns voiced. No s/s of acute distress noted at this time, call light within reach, bed at lowest level; will continue to monitor.
--- NOTE | 2020-11-04 07:09 | HMH.HP ---
*Admission Date: 11/03/20 *Chief complaint: Chest discomfort *History of present illness: 50-year-old male with hypertension and hyperlipidemia presented to the ER yesterday with 3 days of intermittent episodes of chest pain radiating down both left and right arms. Patient has a strong family history of early coronary artery disease. Patient is also a smoker. Due to multiple risk factors patient was admitted for rule out of DE. Cardiology was consulted from the ER. Overnight patient has not had any problems other than restless sleep which she believes may have been due to his sleep apnea which he ceased treatment of several years ago. 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) - *Social History Last grade of school completed: High school graduate Smoking Status: Current every day smoker Tobacco Type: cigarettes # Packs/Day (cigarettes): 2 #Yrs smoked (if former smoker): 32 Alcohol Intake: never Alcohol Intake Frequency:: holidays/special occasions only *Occupational Status:: employed Housing: house Household Members: spouse *Travel in the last 8 weeks: None Family Hx:: Coronary Artery Disease, Heart Attack, Hyperlipidemia, Hypertension, Kidney Disease Review of Systems - Constitutional Denies anorexia, Denies body ache(s) - Eyes Denies blurry vision - ENT Denies abnormal hearing - *Cardiovascular Reports chest pain - *Respiratory Reports cough, Reports wheezing (Will let us know I think is pretty I mean and the other thing was it didn't), Denies change in phlegm color, Denies chest congestion - *Gastrointestinal Denies abdominal pain - *Genitourinary Denies difficulty urinating - *Musculoskeletal Reports joint pain - *Neurologic Denies abnormal walking Meds Home Medications Medication Instructions Recorded Confirmed Type Losartan Potassium 50 mg PO DAILY 09/11/17 11/03/20 History clonazePAM [Klonopin 1mg tablet] 1 mg PO TID 09/11/17 11/03/20 History Atorvastatin Calcium [Lipitor 20mg 20 mg PO AMLAB 11/03/20 11/03/20 History Tab] Ergocalciferol (Vitamin D2) 50,000 units PO WEEKLY 11/03/20 11/03/20 History [Drisdol 50,000 units (1.25mg) capsule] Omeprazole [Omeprazole 40mg 40 mg PO DAILY 11/03/20 11/03/20 History Capsule] raNITIdine HCl [Ranitidine HCl] 75 mg PO DAILY 11/03/20 11/03/20 History Allergies Allergy/AdvReac Type Severity Reaction Status Date / Time No Known Allergies Allergy Verified 03/11/18 23:22 Exam Vital signs and Labs for Last 24 Hours: Temp Pulse Resp BP Pulse Ox 97.5 F L 63 18 124/73 100 11/04/20 04:00 11/04/20 04:00 11/04/20 04:00 11/04/20 04:00 11/04/20 04:00 Laboratory Results - last 24 hr 11/03/20 12:42: WBC 10.0, RBC 5.58, Hgb 16.5, Hct 50.8, MCV 91.2, MCH 29.6, MCHC 32.5, RDW 14.0, Plt Count 229, MPV 8.5, Neut % (Auto) 64.9, Lymph % (Auto) 25.8, [place] % (Auto) 4.6, Eos % (Auto) 3.2, Baso % (Auto) 1.5, Neut # (Auto) 6.5, Lymph # (Auto) 2.6, [place] # (Auto) 0.5, Eos # (Auto) 0.3, Baso # (Auto) 0.2 11/03/20 12:42: Sodium 138, Potassium 4.2, Chloride 104, Carbon Dioxide 26, Anion Gap 12.2, BUN 14, Creatinine 1.00, Estimated Creat Clear 155, Estimated GFR 79, Est GFR ( Amer) 96, Glucose 114 H, Calcium 9.3, Troponin I < 0.01 11/03/20 12:42: NT-Pro-B Natriuret Pep 12.3 11/03/20 12:42: Total Bilirubin 0.8, Direct Bilirubin 0.2, Conjugated Bilirubin 0.0, Indirect Bilirubin 0.6, Unconjugated Bilirubin 0.7, AST 52, ALT 83 H, Alkaline Phosphatase 68, Total Protein 7.6, Albumin 4.6, Lipase 104 11/03/20 14:24: Chlamy pneumoniae PCR Not detected, Ad
--- NOTE | 2020-11-04 08:07 | HMH.PNCARD ---
Subjective Date: 11/04/20 Time: 08:00 Principal diagnosis: Chest pain Interval history: 50-year-old male presented to the [facility] with chest pain and increased shortness of breath. Patient was admitted from the ED yesterday and will undergo left heart catheterization this a.m. Patient denies chest pain, tightness or pressure. Patient does continue to complain of shortness of breath especially with exertion. Patient states he had a difficulty time sleeping last p.m. due to waking up feeling short of breath. Patient admitted he had history of MEGHNA and had in the past used a CPAP machine. Patient states he has not used his CPAP machine for several years. Patient may need sleep study on an outpatient basis due to MEGHNA. No swelling of lower extremities noted. Patient denies palpitations or dizziness. telemetry monitor reveals sinus rhythm with no ectopy. Blood pressure stable at this time. Discussed with patient the risk and benefits of undergoing left heart catheterization today. Patient verbalized understanding and is agreeable to procedure. Echocardiogram was performed which revealed EF of 45 to 50% with no wall motion abnormality and trace of mitral and tricuspid regurgitation. Patient was started on Brilinta along with aspirin and beta-marlon along with his previous medications. Pending on the results of the left heart catheterization, changes to medication and treatment therapy may be recommended. Echo:Conclusion 1. Technically difficult study because of the patient factors and poor acoustic windows, normal left ventricular size, visually estimated ejection fraction 45 to 50% with no obvious regional wall motion abnormality, endocardial surfaces are poorly visualized, diastolic parameters are inconclusive. 2. Trace mitral and tricuspid regurgitation. 3. No significant pericardial effusion noted. Thank you for allowing cardiology to participate in the care of this patient. Exam Vital signs and Labs for Last 24 Hours: Temp Pulse Resp BP Pulse Ox 97.5 F L 71 16 142/88 H 98 11/04/20 07:50 11/04/20 07:50 11/04/20 07:50 11/04/20 07:50 11/04/20 07:50 Laboratory Results - last 24 hr 11/03/20 12:42: WBC 10.0, RBC 5.58, Hgb 16.5, Hct 50.8, MCV 91.2, MCH 29.6, MCHC 32.5, RDW 14.0, Plt Count 229, MPV 8.5, Neut % (Auto) 64.9, Lymph % (Auto) 25.8, [place] % (Auto) 4.6, Eos % (Auto) 3.2, Baso % (Auto) 1.5, Neut # (Auto) 6.5, Lymph # (Auto) 2.6, [place] # (Auto) 0.5, Eos # (Auto) 0.3, Baso # (Auto) 0.2 11/03/20 12:42: Sodium 138, Potassium 4.2, Chloride 104, Carbon Dioxide 26, Anion Gap 12.2, BUN 14, Creatinine 1.00, Estimated Creat Clear 155, Estimated GFR 79, Est GFR ( Amer) 96, Glucose 114 H, Calcium 9.3, Troponin I < 0.01 11/03/20 12:42: NT-Pro-B Natriuret Pep 12.3 11/03/20 12:42: Total Bilirubin 0.8, Direct Bilirubin 0.2, Conjugated Bilirubin 0.0, Indirect Bilirubin 0.6, Unconjugated Bilirubin 0.7, AST 52, ALT 83 H, Alkaline Phosphatase 68, Total Protein 7.6, Albumin 4.6, Lipase 104 11/03/20 14:24: Chlamy pneumoniae PCR Not detected, Adenovirus (PCR) Not detected, B. pertussis DNA (PCR) Not detected, Coronavirus OC43 (PCR) Not detected, Coronavirus HKU1 (PCR) Not detected, Coronavirus 229E (PCR) Not detected, SARS-CoV-2 (PCR) Not detected, Coronavirus NL63 (PCR) Not detected, Human Metapneumovir PCR Not detected, Influenza A (H1) PCR Not detected, Influ A (H1N1/09) PCR Not detected, Influenza A (H3) PCR Not detected, Influenza Type A (PCR) Not detected, Influenza Type B (PCR) Not detected, M. pneumoniae (PCR) Not detected, Parainfluenza 1 (PCR) Not detected, Parainfluenza 2 (PCR) Not detected, Parainfluenza 3 (PCR) Not detected, Parainfluenza 4 (PCR) Not detected, RSV (PCR) Not detected, Entero/Rhino (PCR) Not detected 11/03/20 15:58: Troponin I < 0.01 11/03/20 18:40: Troponin I < 0.01 I & O for Last 24 hours: Intake & Output 11/01/20 11/02/20 11/03/20 11/04/20 23:59 23:59 23:59 23:59 Intake
--- NOTE | 2020-11-04 10:50 | PC.NURSE ---
Off floor for heart cath via Hannah Sibley from quality assurance lab technician
--- NOTE | 2020-11-04 12:18 | PC.NURSE ---
Report received from Sunita Sibley RN, She states patient received 4 stents (2 to RCA and 2 to LAD). Right radial site has radialband in place. and VS are 110/65, HR 56, O2 96 RA. Someone to bring patient up in a few minutes.
--- NOTE | 2020-11-04 12:25 | PC.NURSE ---
Pt back to floor via stretcher accompanied by Callie Gaona RN
--- NOTE | 2020-11-04 15:28 | PC.NURSE ---
Pt is alert and oriented x4. Lungs are clear, bowel sounds active x4. He is s/p left heart cath with placement of 4 stents. Radial band is currently in place. He denies chest pain and sob. He ambulates independently to the bathroom. He is occasionally bradycardic with HR in the upper 50's. Family has taken turns visiting and are supportive. No questions or concerns at this time. Will continue to monitor.
--- NOTE | 2020-11-04 15:51 | PC.NURSE ---
Radialband removed as follows: 1410 2ml air removed 1425 2ml air removed 1440 2ml air removed 1455 2ml air removed 1510 2ml air removed 1525 2ml air removed 1540 2ml air removed 1550 radial band removed and telfa w/tegaderm placed. No s/s of hematoma. Will continue to monitor.
--- NOTE | 2020-11-04 16:17 | PC.NURSE ---
Trash and dirty linens pulled
[2020-11-04 17:31] LABS: CATHL Activated Clotting Time > 400 SEC (74-125)
[2020-11-05] VITALS: PULSE 60
[2020-11-05 03:49] VITALS: BP 131/73; PULSE 63; RESP 19; TEMP 36.6; O2SAT 97
[2020-11-05 04:00] VITALS: PULSE 60
--- NOTE | 2020-11-05 04:04 | PC.NURSE ---
shift summary pts lung sounds are clear with sats maintained 97% or above on room air, with a rate ranging from 14-18. pt is alert and oriented X4. pt is independent in going to the restroom. pt states he feels much better. pts dressing on his cath site is clean, dry, and intact. pt denies any pain, nausea, vomiting, or diarrhea.
[2020-11-05 05:00] VITALS: BMI 38.4
[2020-11-05 06:04] LABS: Basophils # 0.2 K/mm3 (0-0.2); Basophils % 1.3 % (0.1-2.0); Eosinophils # 0.4 K/mm3 (0.0-0.4); Eosinophils % 3.4 % (0.1-12.0); Hemoglobin 15.2 g/dL (14.1-18.0); Lymphocytes # 3.4 K/mm3 (0.7-4.5); Lymphocytes % 30.5 % (10-50); Mean Corpuscular HGB Conc 33.1 g/dL (31.8-35.4); Mean Corpuscular Hemoglobin 30.3 pg (27.0-31.2); Mean Corpuscular Volume 91.4 fl (80-94); Mean Platelet Volume 8.4 fl (7.4-10.4); Monocytes # 0.5 K/mm3 (0.1-1.0); Monocytes % 4.9 % (1.7-9.3); Neutrophils # 6.6 K/mm3 (1.8-7.8); Neutrophils % 59.8 % (37.0-80.0); Platelet Count 191 K/mm3 (142-424); Red Blood Count 5.03 M/mm3 (4.60-6.20)
[2020-11-05 06:07] LABS: Chloride 106 mmol/L (98-107); Potassium 4.1 mmoL/L (3.5-5.1); Sodium 136 mmol/L (136-145)
[2020-11-05 06:10] LABS: Blood Urea Nitrogen 17 mg/dl (9-20); Creatinine Clearance Estimated 152 mL/min (50-200); Estimated Glomerular Filt Rate 79 ml/min (>60); GFR (African American) 96 ML/MIN (>60)
[2020-11-05 06:11] LABS: Anion Gap 11.1 mEq/L (5-15); Calcium 8.6 mg/dl (8.4-10.2); Carbon Dioxide 23 mmol/L (22.0-30.0); Glucose 166 mg/dl (74-100)
--- NOTE | 2020-11-05 07:24 | HMH.DCSUM ---
General - General Admission date:: 11/03/20 Discharge date: 11/05/20 HPI HPI: 50-year-old male with hypertension and hyperlipidemia presented to the ER yesterday with 3 days of intermittent episodes of chest pain radiating down both left and right arms. Patient has a strong family history of early coronary artery disease. Patient is also a smoker. Due to multiple risk factors patient was admitted for rule out of ND. Cardiology was consulted from the ER. Overnight patient has not had any problems other than restless sleep which she believes may have been due to his sleep apnea which he ceased treatment of several years ago. Hospital Course Hospital Course: Patient was admitted. He ruled out for ND. Patient underwent left heart catheterization on November 04 with results as follows: ANGIOGRAPHIC RESULTS The left main artery Normal The left anterior descending artery Has critical proximal and mid LAD disease greater than 90% with a ruptured plaque and suggestion of a thrombus. The circumflex artery Is a large codominant vessel with proximal 30% stenosis and a 50% stenosis throughout the proximal midportion of a moderate-sized first obtuse marginal artery The right coronary artery Is a codominant vessel and has proximal 30% followed by mid vessel greater than 90% stenosis with tubular 40 to 50% stenosis distal to the 90% stenosis The WILSON ventriculogram reveals Not performed The left ventricular end-diastolic pressure Not measured IMPRESSION Critical two-vessel coronary artery disease as described above Successful stenting of the proximal mid to distal right coronary artery critical disease reduced to 0% with 2 drug-eluting stents in a contiguous manner Successful stenting of the proximal to mid LAD critical disease reduced to 0% with 2 drug-eluting stents placed in a contiguous manner Persistent moderate stenosis in a large obtuse marginal artery PLAN 1. Dual antiplatelet therapy 2. LDL less than 55 3. Cardiac rehabilitation 4. Aggressive risk factor modification 5. Medical management for the circumflex artery for the time being. I would recommend stress Myoview testing in 6 weeks to determine if the obtuse marginal artery has hemodynamic significance Post procedurally patient did well. There were no problems. Patient was discharged home the following morning in stable condition. Patient has untreated sleep apnea and this will be addressed in follow-up. Patient reported that statins make him feel bad. The symptoms they cause are similar to untreated sleep apnea. He will try rosuvastatin 20 mg daily. Patient is a longtime smoker. Smoking cessation was emphasized. Patient will start bupropion for smoking cessation. Patient would also benefit from PFTs in the future. Objective Vital signs: Temp Pulse Resp BP Pulse Ox 97.9 F 60 19 131/73 97 11/05/20 03:49 11/05/20 04:00 11/05/20 03:49 11/05/20 03:49 11/05/20 03:49 no acute distress - *Routine HEENT Exam Head: Present: normocephalic Eye: Present: EOMI, PERRL ENT: Present: mucous membranes moist - *Routine Neck Exam Present: supple - *Routine Respiratory Exam Present: CTA bilaterally - *Routine Cardiovascular Exam Present: RRR - *Routine Abdominal Exam Present: soft, normoactive bowel sounds. Absent: tenderness - *Routine Extremities Exam Absent: cyanosis, clubbing, edema - *Routine Skin Exam Present: warm. Absent: rash - Detailed Eye Exam Eyelids: Bilateral normal inspection Results Labs on day of discharge: Labs from last 24 hours 11/05/20 11/05/20 11/04/20 05:51 05:51 11:39 WBC 11.0 H RBC 5.03 Hgb 15.2 Hct 46.0 MCV 91.4 MCH 30.3 MCHC 33.1 RDW 14.0 Plt Count 191 MPV 8.4 Neut % (Auto) 59.8 Lymph % (Auto) 30.5 [place] % (Auto) 4.9 Eos % (Auto) 3.4 Baso % (Auto) 1.3 Neut # (Auto) 6.6 Lymph # (Auto) 3.4 [place] # (Auto) 0.5 Eos # (Auto
--- NOTE | 2020-11-05 07:51 | HMH.PHACLD ---
Roni Lynch has received discharge medication counseling on the following medications: PATIENT STARTED ON ASPIRIN 81 MG DAILY, METOPROLOL TARTRATE 25 MG BID, CRESTOR 20 MG HS, AND BRILINTA 90 MG BID. MD STOPPING ATORVASTATIN 20 MG HS. PATIENT CURRENTLY TAKING LOSARTAN 50 MG DAILY.
[2020-11-05 08:00] VITALS: BP 126/64; PULSE 61; RESP 17; TEMP 36.3; O2SAT 98
== END 2020-11-05 09:59 | disposition home or self-care (01) ==
LOC: ER 14:38 → 2ND 16:14
PROVIDERS: Internal Medicine; Admitting Provider Family Medicine; Emergency Provider Emergency Medicine; PCP Family Medicine; Visit Provider Family Medicine
DX: I25.110 Atherosclerotic heart disease of native coronary artery with unstable angina pectoris (principal); I10 Essential (primary) hypertension; J44.9 Chronic obstructive pulmonary disease, unspecified; F17.209 Nicotine dependence, unspecified, with unspecified nicotine-induced disorders; G47.33 Obstructive sleep apnea (adult) (pediatric); Z82.49 Family history of ischemic heart disease and other diseases of the circulatory system; I25.83 Coronary atherosclerosis due to lipid rich plaque
CPT/HCPCS: 36415; 71046; 80048; 80076; 83690; 83880; 84484; 85025; 85347; 87581; 87633; 87798; 92928; 93005; 93306; 93458; 99152; 99153; 99284; C1725; C1760; C1769; C1876; C9600; G0378; J1644; Q9967

== ENCOUNTER 2020-11-07 07:32 | Emergency (ER) | payer OTHER, SELFPAY ==
--- NOTE | 2020-11-07 07:28 | ECG_ITS ---
APPROVED REPORT Exam: Resting ECG HR:66 bpm ECG Measurements Heart Rate 66 AXES OK 120 P 52 QRSd 102 QRS 83 QT 394 T 52 QTc 413 Conclusion Normal sinus rhythm Normal ECG Electronically signed by : Tarun Osuna, 11/07/2020 15:47:23
[2020-11-07 07:33] VITALS: RESP 18; TEMP 36.6; O2SAT 98; BMI 38.7
--- NOTE | 2020-11-07 07:42 | XR_ITS ---
PROCEDURE: XR CHEST 2V CLINICAL HISTORY: chest pain Chest pain and tightness COMPARISON: No exams were available for comparison FINDINGS: The cardiomediastinal silhouette and pulmonary vascularity are within normal limits. There are old displaced fractures of the right 6 and 7th ribs posteriorly with increased density between the 2 fractures which may be due to some pleural calcification or callus formation. There is an old 8th rib fracture also noted posteriorly. Small parenchymal opacity is present in the left lung base overlying the 6th rib anteriorly and may be due to summation artifact, versus atelectasis, scarring, or developing nodule. Follow-up suggested to confirm stability. Degenerative changes are present in the thoracic spine.. There is an old left 8th rib fracture laterally IMPRESSION: No acute finding. Old bilateral rib fractures. Nonspecific nodular opacity left lung base. Consider follow-up to confirm stability Dictated by: Polo Messina MD 11/07/2020 08:59 Polo Messina MD in [place] 11/07/2020 08:59
--- NOTE | 2020-11-07 07:45 | PC.NURSE ---
Pt reported that his bp was 90/50's with the metoprolol, PT stated he called Dr. Lee, was instructed to hold the metoprolol for now. Pt stated he didn't take last night or this mornings dose. Pt bp currently 132/63.
[2020-11-07 07:52] VITALS: BP 120/84; PULSE 70; RESP 18; O2SAT 96
--- NOTE | 2020-11-07 07:54 | PC.NURSE ---
pt return from xray
--- NOTE | 2020-11-07 07:58 | HMH.EDGENADL ---
ED Disposition Clinical Impression: Atypical chest pain Disposition: Home, Self-Care Condition on Discharge: Good Referrals: Tarun Ochoa MD [Primary Care Provider] - Vincent Lee MD [Staff Physician] - 11/09/20 Time of Disposition: 09:02 - Critical Care Critical Care Time: No Attestation: On 11/07/20, the high probability of a clinically significant, sudden or life threatening deterioration of the following system(s) required my full and direct attention, intervention and personal management. The time I documented below is in addition to time spent performing reported procedures but includes the following listed in this critical care notation. Medical Decision Making - [place] Inquiry Pt receiving controlled substance: No Vital Signs: 11/07/20 07:33 11/07/20 07:52 Temperature 97.8 F Temperature Source Oral Pulse Rate 70 Respiratory Rate 18 18 Blood Pressure 120/84 Blood Pressure Source Automatic Cuff Blood Pressure Position Sitting 02 Sat by Pulse Oximetry 98 96 Oxygen Delivery Method Room Air Room Air - Lab Data Lab results reviewed: Yes: I reviewed the patient's lab results. Lab Results 11/07/20 07:42: WBC 10.0, RBC 5.34, Hgb 15.8, Hct 47.6, MCV 89.3, MCH 29.5, MCHC 33.1, RDW 13.9, Plt Count 202, MPV 8.8, Neut % (Auto) 66.3, Lymph % (Auto) 24.8, [place] % (Auto) 4.4, Eos % (Auto) 3.2, Baso % (Auto) 1.3, Neut # (Auto) 6.7, Lymph # (Auto) 2.5, [place] # (Auto) 0.4, Eos # (Auto) 0.3, Baso # (Auto) 0.1 11/07/20 07:42: Sodium 137, Potassium 4.2, Chloride 102, Carbon Dioxide 25, Anion Gap 14.2, BUN 19, Creatinine 1.20, Estimated Creat Clear 128, Estimated GFR 64, Est GFR ( Amer) 78, Glucose 156 H, Calcium 9.3, Troponin I 0.02 Result diagrams: 11/07/20 07:42 11/07/20 07:42 Orders (Tests/Meds): ED MEDICATIONS Discontinued Medications Generic Name Dose Route Start Last Admin Trade Name Freq PRN Reason Stop Dose Admin Aspirin 243 mg 11/07/20 07:42 11/07/20 07:44 Aspirin 81mg Chewable Tablet PO 11/07/20 07:43 243 mg ONCE ONE Administration Morphine Sulfate 2 mg 11/07/20 07:45 11/07/20 07:46 Morphine 2mg/Ml Syringe IV 11/07/20 07:46 2 mg ONCE ONE Administration ORDERS Category Date Time Status Troponin I Q3H Lab 11/07/20 10:45 Ordered Troponin I Q3H Lab 11/07/20 13:45 Ordered - Radiology Data #1 Image(s): Chest Image Reviewed: Yes I reviewed the patient's radiology image Preliminary Findings: Normal/NAD No change in x-ray from previous evaluation. No acute finding. - ECG Data Tracing #1 66 bpm, normal sinus rhythm, no ST elevation or depression, no ectopy, normal intervals. ECG initial impression date: 11/07/20 ECG initial impression time: 08:00 - SHARYN Score for Non-Stemi Age of Patient: 50-59 years old Heart Rate: 50-69 bpm Systolic Blood Pressure: 120-139 mmhg Serum Creatinine: 1.20-1.59 mg/dl CHF [place] Class: I-No CHF Other Risk Factors: None Non-Stemi Risk Score: 88 Medical Decision Narrative: 50yo M evaluated for chest pain. Patient is in no acute distress on initial evaluation. He has been treated with 2 of morphine prior to my evaluation. EKG is unremarkable reviewed as above. Patient's presentation is complicated by the fact he recently had 4 stents placed at this facility. CBC, BMP, troponin are all unremarkable. Chest x-ray is reviewed no acute findings are visualized. Case discussed with Dr. Lee regarding recommendations and further evaluation. Case discussed with Dr. Lee who believes the patient has arteritis following stent placement. He request the patient be started on Ranexa 500 mg twice daily and instructed to follow-up with Dr. Lee Monday morning in the office. This was relayed to the patient. Prescription written. He is appropriate and stable for discharge home at this time. General Adult HPI - General Chief complaint: Chest Pain Stated complaint: Chest Pain Time Seen by Provide
[2020-11-07 08:01] LABS: Basophils # 0.1 K/mm3 (0-0.2); Basophils % 1.3 % (0.1-2.0); Eosinophils # 0.3 K/mm3 (0.0-0.4); Eosinophils % 3.2 % (0.1-12.0); Hematocrit 47.6 % (42.0-52.0); Hemoglobin 15.8 g/dL (14.1-18.0); Lymphocytes # 2.5 K/mm3 (0.7-4.5); Lymphocytes % 24.8 % (10-50); Mean Corpuscular HGB Conc 33.1 g/dL (31.8-35.4); Mean Corpuscular Hemoglobin 29.5 pg (27.0-31.2); Mean Corpuscular Volume 89.3 fl (80-94); Mean Platelet Volume 8.8 fl (7.4-10.4); Monocytes # 0.4 K/mm3 (0.1-1.0); Monocytes % 4.4 % (1.7-9.3); Neutrophils # 6.7 K/mm3 (1.8-7.8); Neutrophils % 66.3 % (37.0-80.0); Platelet Count 202 K/mm3 (142-424); Red Blood Count 5.34 M/mm3 (4.60-6.20); Red Cell Distribution Width 13.9 % (11.5-17.5)
[2020-11-07 08:06] LABS: Chloride 102 mmol/L (98-107); Potassium 4.2 mmoL/L (3.5-5.1); Sodium 137 mmol/L (136-145)
[2020-11-07 08:09] LABS: Anion Gap 14.2 mEq/L (5-15); Blood Urea Nitrogen 19 mg/dl (9-20); Calcium 9.3 mg/dl (8.4-10.2); Carbon Dioxide 25 mmol/L (22.0-30.0); Creatinine Clearance Estimated 128 mL/min (50-200); Estimated Glomerular Filt Rate 64 ml/min (>60); GFR (African American) 78 ML/MIN (>60); Glucose 156 mg/dl (74-100)
[2020-11-07 08:22] LABS: Troponin I 0.02 ng/ml (0.00-0.034)
--- NOTE | 2020-11-07 08:58 | PC.NURSE ---
spanner operator paging Dr. Lee
--- NOTE | 2020-11-07 08:59 | PC.NURSE ---
KEN RODRIGUEZ speaking with Dr. eLe.
[2020-11-07 09:17] VITALS: BP 132/63; PULSE 72; RESP 18; TEMP 36.6; O2SAT 99
== END 2020-11-07 09:19 | disposition home or self-care (01) ==
PROVIDERS: Emergency Provider Family Medicine; PCP Family Medicine
DX: R07.89 Other chest pain (principal); I10 Essential (primary) hypertension; E78.5 Hyperlipidemia, unspecified; I25.10 Atherosclerotic heart disease of native coronary artery without angina pectoris; J44.9 Chronic obstructive pulmonary disease, unspecified; F17.210 Nicotine dependence, cigarettes, uncomplicated; Z79.899 Other long term (current) drug therapy
CPT/HCPCS: 71046; 80048; 84484; 85025; 93005; 96374; 96375; 99282

== ENCOUNTER → 2020-11-13 14:20 | Outpatient (CLI) | payer OTHER, SELFPAY ==
[2020-11-13 14:44] LABS: Hematocrit 47.9 % (42.0-52.0); Hemoglobin 15.8 g/dL (14.1-18.0)
[2020-11-13 15:18] LABS: Blood Urea Nitrogen 19 mg/dl (9-20); Estimated Glomerular Filt Rate 58 ml/min (>60); GFR (African American) 71 ML/MIN (>60)
== END ==
PROVIDERS: Visit Provider Internal Medicine
DX: I25.10 Atherosclerotic heart disease of native coronary artery without angina pectoris (principal); R07.9 Chest pain, unspecified
CPT/HCPCS: 36415; 82565; 84520; 85014; 85018

== ENCOUNTER → 2020-12-15 06:36 | Outpatient (CLI) | payer OTHER, SELFPAY ==
--- NOTE | 2020-12-15 06:37 | CA_ITS ---
APPROVED REPORT Exam: Pharmacologic Technologist: carlos garcia, Ht: 5 ft 10 in Wt: 264 lbs BSA: 2.35 m2 HR: 64 bpm BP: 125/79 mmHg Medical History Medications: Omeprazole,,,,, Asa,,,,, Losartan,,,,, Albuterol,,,,, CloPIdogrel,,,,, Fluoxetin,,,,, KloNOPIN,,,,, Vitamin D,,,,, Nitro,,,,, RoSUVASTATIN,,,,, Ranolazine,,,,, Allergies: NKA Cardiac Risk Factors: HTN, Hyperlipidemia, FHX of CAD, Smoking Stress Test Details Test: LEXISCAN HR Resting HR: 64 bpm Max Heart Rate (APMHR): 170.231662 bpm Max HR Achieved: 86 bpm Target HR (85% APMHR): 144.222766 bpm % of APMHR: 50.59 Recovery HR: 70 bpm BP Resting BP: 125/79 mmHg Max BP: 128/69 mmHg Recovery BP: 111.0/73.0 mmHg ECG Resting ECG: NSR, rightward axis Clinical Exercise duration: 04:00 min Highest Stage Achieved: Stress ECG Conclusion No chest pain, but patient did have SOA, malaise, and posterior neck pain. No arrhythmia or ectopy. No significant ST changes. Unremarkable Lexiscan stress. Images reported separately. Test Summary REST 03:00 . . 64 . 125/ 79 . . Stage 1 01:00 . . 76 . . . . Stage 2 01:00 . . 80 . 120/ 73 . . Stage 3 01:00 . . 76 . 121/ 67 . . Stage 4 01:00 . . 72 . 128/ 69 . Stop exercise at 04:00 RECOVERY 01:00 . . 71 . 111/ 73 . . RECOVERY 02:00 . . 67 . 111/ 73 . . RECOVERY 03:00 . . 68 . 119/ 73 . . RECOVERY 03:18 . . 72 . 119/ 73 . . Electronically signed by : Diaz Hogan, 12/15/2020 18:16:03
--- NOTE | 2020-12-15 06:37 | NM_ITS ---
APPROVED REPORT Exam: Nuclear Stress Test Indication: Chest pain, CAD, SOB, HTN, High cholesterol, Former tobacco use, Family history Patient Location: Outpatient Stress Tech: Vicenta DorseyMilagros [place] Tech:Yulissa Naik, PANTERAT, RT (R)(N) Ht: 5 ft 10 in Wt: 264 lbs HR: 64 bpm BP: 125/79 mmHg BSA: 2.35 m2 BMI: 37.8 History: Chest pain, CAD, SOB, HTN, High cholesterol, Former tobacco use, Family history Procedure: Patient received a 0.4 mg of intravenous Lexiscan, resting heart rate 64 bpm, resting blood pressure 125/79 mmHg, with Lexiscan maximum heart rate achived was 80 bpm which is Less than 85 % of the maximum predicted heart rate and blood pressure was 120/73 mmHg. With Lexiscan, patient denied any complaint of chest pain. Electrocardiogram Resting electrocardiogram showed sinus rhythm, with Lexiscan there is less than 1.[address] segment depression noted from the baseline EKG. The EKG portion of the Lexiscan is nondiagnostic. Cardiac Stress and Resting SPECT Images: Cardiac Stress and Resting SPECT images were obtained using technetium 99m Myoview 30.1 mCi stress and 10.64 mCi at rest. Gated SPECT for analysis of segmental wall motion and calculation of the ejection fraction also done. Prone images were also obtained. Cardiac stress and rest SPECT images show uniform myocardial activity without segmental perfusion abnormality, computer derived ejection fraction is 56% with no regional wall motion abnormality, right ventricle is normal size and contractility. Conclusion: 1. The EKG portion of the Lexiscan is nondiagnostic. 2. No scintigraphic evidence of reversible ischemia seen, computer derived ejection fraction 56% with no regional wall motion abnormality, right ventricle is normal size and contractility. 3. Normal Lexiscan Myoview study. Electronically signed by : Diaz Hogan, 12/15/2020 18:28:47
--- NOTE | 2020-12-15 08:58 | HMH.ITSHM ---
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 []RANOLAINE FLUOXETINE CLOPIDOGREL CLONAZEPAM ALBUTEROL ROSUVASTATIN OMEPRAZOLE NITRO LOSARTAN VITMAIN D2 ASA
== END ==
PROVIDERS: PCP Family Medicine; Visit Provider Nurse Practitioner Family
DX: R06.00 Dyspnea, unspecified (principal); I25.118 Atherosclerotic heart disease of native coronary artery with other forms of angina pectoris; E78.2 Mixed hyperlipidemia; I10 Essential (primary) hypertension; Z72.0 Tobacco use
CPT/HCPCS: 78452; 93017; A9502; J2785

== ENCOUNTER → 2020-12-17 07:38 | Outpatient (CLI) | payer OTHER, SELFPAY | PROVIDERS: PCP Family Medicine; Visit Provider Family Medicine | DX: R06.02 Shortness of breath (principal); Z87.891 Personal history of nicotine dependence | CPT/HCPCS: 94060 ==

== ENCOUNTER → 2020-12-23 09:53 | Outpatient (CLI) | payer OTHER, SELFPAY ==
[2020-12-23 11:17] LABS: Alanine Aminotransferase 34 U/L (12-78); Albumin Level 4.3 g/dl (3.5-5.0); Alkaline Phosphatase 71 U/L (38-126); Aspartate Amino Transferase 26 U/L (17-59); Bilirubin,Direct 0.3 mg/dl (0.0-0.4); Bilirubin,Indirect 0.4 mg/dL (0.0-0.9); Bilirubin,Total 0.7 mg/dl (0.2-1.3); Bilirubin,Unconjugated 0.5 mg/dL (0.0-1.1); Chol/HDL Ratio 3.9 (1-3.5); Cholesterol 173 mg/dl (140-200); HDL Cholesterol 44 mg/dl (40-60); Total Protein,Serum 6.8 g/dl (6.3-8.2); Triglycerides 246 mg/dl (30-150); VLDL Cholesterol 49 mg/dL (0-40)
[2020-12-23 11:28] LABS: Direct LDL Cholesterol 84.71 mg/dL (100-129)
== END ==
PROVIDERS: Nurse Practitioner Family; Visit Provider Internal Medicine
DX: R06.00 Dyspnea, unspecified (principal); I25.118 Atherosclerotic heart disease of native coronary artery with other forms of angina pectoris; E78.2 Mixed hyperlipidemia; I10 Essential (primary) hypertension; Z72.0 Tobacco use
CPT/HCPCS: 36415; 80061; 80076

== ENCOUNTER → 2021-01-20 18:00 | Outpatient (CLI) | payer OTHER, SELFPAY | PROVIDERS: Visit Provider Nurse Practitioner Family | DX: Z20.822 Contact with and (suspected) exposure to COVID-19 (principal) | CPT/HCPCS: U0003 ==

== ENCOUNTER → 2021-01-28 20:19 | Outpatient (CLI) | payer OTHER, SELFPAY | PROVIDERS: PCP Family Medicine; Visit Provider Nurse Practitioner Family | DX: G47.33 Obstructive sleep apnea (adult) (pediatric) (principal); R06.81 Apnea, not elsewhere classified; R06.83 Snoring | CPT/HCPCS: 95811 ==

== ENCOUNTER → 2021-02-10 08:49 | Outpatient (CLI) | payer OTHER, SELFPAY ==
--- NOTE | 2021-02-10 09:00 | XR_ITS ---
PROCEDURE: XR MULTIPLE SPINE 6+V CLINICAL INDICATION: RT SIDED SCIATICA,CERVICAL RADICULOPATHY COMPARISON: No exams were available for comparison FINDINGS: Cervical spine: Five views are obtained showing normal alignment. There is minimal lower cervical curvature convex left and mid cervical curvature convex right. No fracture or dislocation. No lytic or blastic change. There is facet hypertrophic change on the right at C3-C4 and on the left at C6-C7. Foraminal narrowing is present on the right at C3-C4 and on the left at C6-C7. No cervical rib. Lumbar spine: Five views normal alignment. No acute fracture or dislocation. There is degenerative disc disease C2-S1. No lytic or blastic change. IMPRESSION: Lumbar cervical spondylosis as described above. Dictated by: Polo Messina MD 02/10/2021 11:59 Polo Messina MD in [place] 02/10/2021 11:59
== END ==
PROVIDERS: PCP Family Medicine; Visit Provider Family Medicine
DX: M54.31 Sciatica, right side (principal); M54.12 Radiculopathy, cervical region; M47.22 Other spondylosis with radiculopathy, cervical region
CPT/HCPCS: 72084

== ENCOUNTER 2021-06-13 19:47 | Emergency (ER) | payer OTHER, SELFPAY ==
[2021-06-13 19:48] VITALS: BP 140/81; PULSE 69; RESP 20; TEMP 37.1; O2SAT 96; BMI 36.4
--- NOTE | 2021-06-13 20:09 | XR_ITS ---
PROCEDURE INFORMATION: Exam: XR Chest Exam date and time: 06/13/2021 8:09 PM Age: 51 years old Clinical indication: Shortness of breath; Prior surgery; Surgery date: 6+ months; Surgery type: Cardiac stents; Additional info: Shortness of air TECHNIQUE: Imaging protocol: XR of the chest. Views: 2 views. COMPARISON: CR XR CHEST 2V 11/07/2020 7:45 AM FINDINGS: Lungs: The lungs are adequately inflated. Unchanged opacity opacity within the lingula. Pleural spaces: No pneumothorax or pleural effusion. Heart/Mediastinum: The cardiomediastinal silhouette has normal size and contour. Partially calcified mediastinal lymph nodes. Bones/joints: Unchanged chronic fracture deformities of the right 6, 7th, 8th, and 9th ribs. Suggestion of remote fracture of the left 8th rib. Multilevel degenerative type changes of the spine. No acute osseous abnormality. Intraperitoneal space: The visualized abdomen is unremarkable. IMPRESSION: 1. Unchanged airspace opacity within the lingula of the left upper lobe. 2. Other chronic findings as above.
--- NOTE | 2021-06-13 20:09 | CT_ITS ---
PROCEDURE INFORMATION: Exam: CTA Chest With Contrast Exam date and time: 06/13/2021 8:09 PM Age: 51 years old Clinical indication: Shortness of breath; Prior surgery; Surgery date: 6+ months; Surgery type: Cardiac stents; Additional info: Shortness of air TECHNIQUE: Imaging protocol: Computed tomographic angiography of the chest with contrast. 3D rendering (Not supervised by radiologist): MIP and/or 3D reconstructed images were created by the technologist. Radiation optimization: All CT scans at this facility use at least one of these dose optimization techniques: automated exposure control; mA and/or kV adjustment per patient size (includes targeted exams where dose is matched to clinical indication); or iterative reconstruction. Contrast material: ISOVUE 370; Contrast volume: 70 ml; Contrast route: INTRAVENOUS (IV); COMPARISON: CR XR CHEST 2V 06/13/2021 8:16 PM FINDINGS: Pulmonary arteries: No pulmonary emboli. Aorta: No aortic aneurysm. No aortic dissection. Other arteries: Coronary artery stents. Veins: Contrast within the IVC and hepatic veins. Thyroid: The thyroid gland is normal. Lungs: Bandlike opacity within the lingula. Scattered pulmonary granulomas. Suggestion of narrowing of the inferior lingular bronchus at its origin without evidence of air trapping. Pleural spaces: No pneumothorax. No pleural effusion. Heart: No cardiomegaly or pericardial effusion. Lymph nodes: Partially calcified left hilar lymph nodes. Bones/joints: Multiple remote fracture deformities of the right 6, 7th, 8th, and 9th ribs as well as healed fracture of the left 8th rib. Multilevel degenerative type changes of the spine. No acute osseous abnormality. Soft tissues: Unremarkable. Other findings: Unless otherwise stated as above the remainder of the visualized abdomen is unremarkable. IMPRESSION: 1. No pulmonary embolism. 2. Bandlike opacity within the lingula is favored represent atelectasis with infection not excluded. 3. Reflux of contrast into the IVC and hepatic veins may represent component of heart failure type syndrome. 4. Chronic findings as above.
[2021-06-13 20:18] LABS: Coronavirus 19, PCR Not Detected (NotDetected); Influenza A, PCR Not Detected (NotDetected); Influenza B, PCR Not Detected (NotDetected)
[2021-06-13 20:21] LABS: Basophils # 0.1 K/mm3 (0-0.2); Basophils % 1.2 % (0.1-2.0); Chloride 103 mmol/L (98-107); Eosinophils # 0.5 K/mm3 (0.0-0.4); Eosinophils % 5.9 % (0.1-12.0); Hematocrit 41.4 % (42.0-52.0); Hemoglobin 14.3 g/dL (14.1-18.0); Lymphocytes # 2.4 K/mm3 (0.7-4.5); Lymphocytes % 25.5 % (10-50); Mean Corpuscular HGB Conc 34.5 g/dL (31.8-35.4); Mean Corpuscular Hemoglobin 31.7 pg (27.0-31.2); Mean Corpuscular Volume 91.9 fl (80-94); Mean Platelet Volume 8.1 fl (7.4-10.4); Monocytes # 0.4 K/mm3 (0.1-1.0); Monocytes % 4.8 % (1.7-9.3); Neutrophils # 5.8 K/mm3 (1.8-7.8); Neutrophils % 62.8 % (37.0-80.0); Platelet Count 219 K/mm3 (142-424); Red Blood Count 4.51 M/mm3 (4.60-6.20); White Blood Count 9.3 K/mm3 (4.8-10.8)
[2021-06-13 20:22] LABS: Potassium 3.9 mmoL/L (3.5-5.1); Sodium 138 mmol/L (136-145)
[2021-06-13 20:24] LABS: Blood Urea Nitrogen 15 mg/dl (9-20); Creatinine Clearance Estimated 178 mL/min (50-200); Estimated Glomerular Filt Rate 102 ml/min (>60); GFR (African American) 123 ML/MIN (>60)
[2021-06-13 20:25] LABS: Alanine Aminotransferase 15 U/L (12-78); Albumin Level 4.2 g/dl (3.5-5.0); Albumin/Globulin Ratio 1.6 (1.1-1.8); Alkaline Phosphatase 67 U/L (38-126); Anion Gap 11.9 mEq/L (5-15); Aspartate Amino Transferase 25 U/L (17-59); Bilirubin,Total 0.2 mg/dl (0.2-1.3); Carbon Dioxide 27 mmol/L (22.0-30.0); Globulin 2.6 g/dL (1.3-3.2); Glucose 114 mg/dl (74-100); Total Protein,Serum 6.8 g/dl (6.3-8.2)
--- NOTE | 2021-06-13 20:32 | HMH.EDSOB ---
ED Disposition Clinical Impression: Acute bronchitis Qualifiers: Bronchitis organism: unspecified organism Qualified Code(s): J20.9 - Acute bronchitis, unspecified Disposition: Home, Self-Care Condition on Discharge: Good Instructions: DI for Shortness of Breath Additional Instructions: fluids and use meds and see pcp for follow up Prescriptions: levoFLOXacin [Levaquin 500mg tab] 500 mg PO DAILY #7 tab Transmission Status: [facility] to [facility] predniSONE [Prednisone 20mg Tab] 20 mg PO BID #10 tab Transmission Status: Pending to [facility] Referrals: Tarun Ochoa MD [Primary Care Provider] - - Critical Care Critical Care Time: No Attestation: On 06/13/21, the high probability of a clinically significant, sudden or life threatening deterioration of the following system(s) required my full and direct attention, intervention and personal management. The time I documented below is in addition to time spent performing reported procedures but includes the following listed in this critical care notation. Medical Decision Making - Medical Records Medical records reviewed: Yes: I reviewed the patient's medical records. - Gerson Inquiry Pt receiving controlled substance: No Vital Signs: 06/13/21 19:48 Temperature 98.8 F Temperature Source Oral Pulse Rate [Apical] 69 Respiratory Rate 20 Blood Pressure [Right Arm] 140/81 Blood Pressure Mean [Right Arm] 100 Blood Pressure Source [Right Arm] Automatic Cuff Blood Pressure Position [Right Arm] Sitting 02 Sat by Pulse Oximetry 96 Oxygen Delivery Method Room Air - Lab Data Lab results reviewed: Yes: I reviewed the patient's lab results. Lab Results 06/13/21 19:59: Troponin I < 0.01, C-Reactive Protein 3.0 06/13/21 19:59: WBC 9.3, RBC 4.51 L, Hgb 14.3, Hct 41.4 L, MCV 91.9, MCH 31.7 H, MCHC 34.5, RDW 14.0, Plt Count 219, MPV 8.1, Neut % (Auto) 62.8, Lymph % (Auto) 25.5, Mckenzie % (Auto) 4.8, Eos % (Auto) 5.9, Baso % (Auto) 1.2, Neut # (Auto) 5.8, Lymph # (Auto) 2.4, Mckenzie # (Auto) 0.4, Eos # (Auto) 0.5 H, Baso # (Auto) 0.1, ESR 23 H 06/13/21 19:59: Sodium 138, Potassium 3.9, Chloride 103, Carbon Dioxide 27, Anion Gap 11.9, BUN 15, Creatinine 0.80, Estimated Creat Clear 178, Estimated GFR 102, Est GFR ( Amer) 123, Glucose 114 H, Calcium 9.0, Total Bilirubin 0.2, AST 25, ALT 15, Alkaline Phosphatase 67, Total Protein 6.8, Albumin 4.2, Globulin 2.6, Albumin/Globulin Ratio 1.6, Procalcitonin 0.050 06/13/21 19:59: SARS-CoV-2 (PCR) Not detected, Influenza A Untype (PCR) Not detected, Influenza Type B (PCR) Not detected Result diagrams: 06/13/21 19:59 06/13/21 19:59 Orders (Tests/Meds): ED MEDICATIONS Generic Name Dose Route Start Last Admin Trade Name Freq PRN Reason Stop Dose Admin Sodium Chloride 1,000 mls @ 999 mls/hr 06/13/21 20:30 06/13/21 20:33 Sod Chlor 0.9% 1000ml Bag IV 06/13/21 21:30 999 mls/hr .Q1H1M CARITO Administration Ceftriaxone Sodium 1 gm/ 50 mls @ 100 mls/hr 06/13/21 21:15 06/13/21 21:12 Sodium Chloride IV 06/27/21 21:14 100 mls/hr Q24H CARITO Administration Discontinued Medications Generic Name Dose Route Start Last Admin Trade Name Freq PRN Reason Stop Dose Admin Albuterol/Ipratropium 3 ml 06/13/21 20:10 06/13/21 20:22 Ipratropium/Albuterol 3 Ml Neb IH 06/13/21 20:11 3 ml ONCE ONE Administration Dexamethasone Sodium Phosphate 10 mg 06/13/21 20:25 06/13/21 20:32 Dexamethasone 4mg/Ml 5ml Mdv IV 06/13/21 20:26 10 mg ONCE ONE Administration Iopamidol 70 ml 06/13/21 20:39 06/13/21 20:40 Iopamidol-370 (76%);100ml Bottle IV 06/13/21 20:40 70 ml ONCE ONE Administration Sodium Chloride 40 ml 06/13/21 20:39 06/13/21 20:40 0.9 % Sodium Chloride 50 Ml Vial IV 06/13/21 20:40 40 ml ONCE ONE Administration Sodium Chloride 10 ml 06/13/21 20:39 06/13/21 20:40 Sodium Chloride 0.9% 10ml Syr (Rad Only) IV 06/13/21 20:40 10 ml ONCE ONE Administra
[2021-06-13 20:39] LABS: Troponin I < 0.01 ng/ml (0.00-0.034)
[2021-06-13 20:51] LABS: Erythrocyte Sedimentation Rate 23 mm/hr (0-20)
--- NOTE | 2021-06-13 21:25 | PC.NURSE ---
Called radiology to check status of cta rad report
[2021-06-13 21:48] VITALS: BP 128/66; PULSE 72; RESP 19; TEMP 36.8; O2SAT 96
== END 2021-06-13 21:57 | disposition home or self-care (01) ==
PROVIDERS: Emergency Provider Emergency Medicine; PCP Family Medicine
DX: J20.9 Acute bronchitis, unspecified (principal); I25.10 Atherosclerotic heart disease of native coronary artery without angina pectoris; I10 Essential (primary) hypertension; J44.9 Chronic obstructive pulmonary disease, unspecified; E78.5 Hyperlipidemia, unspecified; F17.210 Nicotine dependence, cigarettes, uncomplicated
CPT/HCPCS: 71046; 71275; 80053; 84145; 84484; 85025; 85651; 86140; 96365; 96367; 96375; 99283; C9803; Q9967; U0003; U0005

== ENCOUNTER 2021-10-02 18:27 | Emergency (ER) | payer OTHER, SELFPAY ==
[2021-10-02 18:40] VITALS: BP 150/85; PULSE 78; RESP 19; TEMP 37.1; O2SAT 98; BMI 37.8
[2021-10-02 18:42] VITALS: PULSE 75; RESP 18; O2SAT 96; BMI 37.7
[2021-10-02 19:04] LABS: UTC Strep Screen (Rapid) Positive (Negative)
--- NOTE | 2021-10-02 19:05 | XR_ITS ---
PROCEDURE INFORMATION: Exam: XR Chest Exam date and time: 10/02/2021 7:02 PM Age: 51 years old Clinical indication: Shortness of breath; Prior surgery; Surgery date: 6+ months; Surgery type: HX cardiac stents; Patient HX: Patient did test positive for strep throat today; Additional info: Congestion TECHNIQUE: Imaging protocol: XR of the chest. Views: 2 views. COMPARISON: CR XR CHEST 2V 06/13/2021 8:16 PM FINDINGS: Lungs: No consolidation. Pleural spaces: No pleural effusion. No pneumothorax. Heart/Mediastinum: No cardiomegaly. Bones/joints: Degenerative changes of the shoulders. IMPRESSION: No acute findings.
--- NOTE | 2021-10-02 19:06 | HMH.EDUTC ---
[facility] Disposition Clinical Impression: Strep pharyngitis Disposition: Home, Self-Care Condition on Discharge: Good Instructions: Strep Throat, DI for Strep Throat, Cefdinir Additional Instructions: *Monitor Temp, Over the counter Motrin or Tylenol as directed/as needed Tylenol every 4 hours and Motrin every 6 hours (as long as your family doctor has told you that you can take it) for fever or pain. and straight to ER if unable to lower temp less than 101.0 after medication given *Warm salt water gargles may help to soothe the throat *Throat Lozenges *Warm fluids like tea with honey may help to soothe the throat *Sleep elevated *Humidifier/Vaporizer If you did not take Penicillin shot or was unable to, start taking antibiotic immediately and make sure that you take it for the FULL length of time although you should start to feel better in 24-48 hours *change toothbrush and toothpaste 24-48 hours after starting to take antibiotics so you do not reinfect yourself Monitor Temp. Tylenol and/or Ibuprofen as needed. ER if fever is no less than 101 despite alternating Tylenol and Ibuprofen * Encourage fluids, water, Gatorade, powerade, pedialyte if /toddler/or child *Cold fluids, popsicles and ice cream may feel good on his throat Follow up IMMEDIATELY for new or worsening symptoms or no Noticeable improvement over the next 48-72 hours. 911 for difficulty breathing or swallowing Prescriptions: Benzonatate [Benzonatate 100mg cap] 100 mg PO Q8HP PRN #15 cap PRN Reason: Cough Transmission Status: Pending to [facility] Cefdinir [Omnicef 300mg Capsule] 300 mg PO BID #20 cap Transmission Status: Pending to [facility] Referrals: Pari Guardado APRN [Primary Care Provider] - As needed Time of Disposition: 20:11 Medical Decision Making - Gerson Inquiry Pt receiving controlled substance: No Gerson was queried for this patient: No Vital Signs: 10/02/21 18:40 10/02/21 18:42 10/02/21 19:45 Temperature 98.8 F 98.8 F Temperature Source Oral Pulse Rate 78 Pulse Rate [Left Radial] 78 75 Respiratory Rate 19 18 18 Blood Pressure 150/85 H Blood Pressure [Right Arm] 150/85 H Blood Pressure Mean [Right Arm] 106 Blood Pressure Source [Right Arm] Automatic Cuff Blood Pressure Position [Right Arm] Sitting 02 Sat by Pulse Oximetry 98 96 Oxygen Delivery Method Room Air Room Air - Lab Data Lab results reviewed: Yes: I reviewed the patient's lab results. Lab Results 10/02/21 18:55: Strep Scn Rapid Clinic Positive A Orders (Tests/Meds): ED MEDICATIONS Discontinued Medications Generic Name Dose Route Start Last Admin Trade Name Jayjay PRN Reason Stop Dose Admin Albuterol/Ipratropium 3 ml 10/02/21 20:02 10/02/21 20:06 Ipratropium/Albuterol 3 Ml Neb IH 10/02/21 20:03 3 ml ONCE ONE Administration Cefdinir 300 mg 10/02/21 19:46 10/02/21 19:30 Cefdinir 300mg Capsule PO 10/02/21 19:47 300 mg ONCE ONE Administration Methylprednisolone Sodium Succinate 125 mg 10/02/21 19:46 10/02/21 19:30 Methylprednisolone Sod Succ 125mg Vial IM 10/02/21 19:47 125 mg ONCE ONE Administration - Radiology Data #1 Image(s): Chest Image Reviewed: Yes I have reviewed radiologist's interpretation IMPRESSION: No acute findings. Medical Decision Narrative: Patient states that he has taken Cefdinir and SoluMedrol in the past without complications or reactions While awaiting CXR results patient had coughing episode Patient states that he has had duo neb in the past without complications or reactions [facility] HPI - General Stated complaint: Cough, SOA Time Seen by Provider: 10/02/21 19:06 Mode of Arrival: Ambulatory Source of Information: Patient Limitations: No Limitations Description of Symptoms (Recalled from Triage Doc. by RN): c/o soa and congestion - History of Present Illness Provider Complaint: Patient states that his kids has been sick St
[2021-10-02 19:45] VITALS: BP 150/85; PULSE 78; RESP 18; TEMP 37.1; O2SAT 96
== END 2021-10-02 20:21 | disposition home or self-care (01) ==
PROVIDERS: Emergency Provider Nurse Practitioner; PCP Nurse Practitioner Family
DX: J02.0 Streptococcal pharyngitis (principal); J44.9 Chronic obstructive pulmonary disease, unspecified; I25.10 Atherosclerotic heart disease of native coronary artery without angina pectoris; F17.210 Nicotine dependence, cigarettes, uncomplicated
CPT/HCPCS: 71046; 87880; 96372; 99213; G0463

== ENCOUNTER → 2021-11-16 14:34 | Outpatient (CLI) | payer OTHER, SELFPAY ==
--- NOTE | 2021-11-16 14:34 | CA_ITS ---
APPROVED REPORT EXAM: Comprehensive 2D, Doppler, and color-flow Echocardiogram Records Tech: EVAN Crockett, RVS Ht: 5 ft 10 in Wt: 267lbs BSA: 2.36 BP: 142/80 mmHg Indications: SOB, CAD, Smoker, LV dysfunction, Fatigue, Dizziness 2D Dimensions IVSd 1.02 cm LVEF (Visual) 60.00 % PWd 1.02 cm LA Volume 39.70 mL LVDd 4.70 cm LA Volume Index 16.80 mL/m2 (M/F) 16-34 LVDs 2.97 cm Aortic Root 3.04 cm Left Atrium 3.32 cm LVOT 1.81 cm (M/F) 1.5-2.5 M-Mode Dimensions LA Diam 3.66 cm (1.9-4.0) Ao Diam 3.37 cm (2.0-3.7) EPSs 0.94 cm TAPSE 2.33 (<1.7) LV Diastology E Decel Time 197.00 (160-240 msec) E/A Ratio 1.34 MED E' 10.10 (< 7 cm/sec) MED A' 8.80 cm/s E'/MED E' Ratio 9.02 (>14) LAT E' 9.70 (<10 cm/sec) LAT A' 7.80 cm/s E/LAT E' Ratio 9.39 (>14) Aortic Valve LVOT Max 117.00 (70-110 cm/s) LVOT VTI 23.08 cm Mitral Valve MV A Velocity 68.00 (40-130 cm/s) E/A Ratio 1.34 MV Decel. Time 197.00 (160-240 ms) Pulmonary Valve PV Peak Velocity 89.00 (50-150 cm/s) Tricuspid Valve TR P. Velocity 216.00 cm/s RAP Estimate 10.00 mmHg RVSP 28.60 mmHg Left Ventricle Left atrium is qualitatively mildly enlarged, left ventricle is normal size, estimated ejection fraction 55% with no regional wall motion abnormality, diastolic parameters are within normal range. Right Ventricle Right atrium and right ventricle are normal size and contractility. Aortic Valve Aortic valve is minimally thickened and fibrosed there is no aortic stenosis or aortic insufficiency. Mitral Valve Mitral valve grossly normal, there is trace mitral regurgitation. Tricuspid Valve Tricuspid valve grossly normal, there is trace tricuspid regurgitation, tricuspid regurgitation jet velocity is inadequate for calculation of the right ventricular systolic pressure. Pulmonic Valve Pulmonic valve is poorly visualized. Great Vessels Aortic root is normal size. Inferior vena cava is poorly visualized. Pericardium No significant pericardial effusion noted. Conclusion 1. Normal left ventricular size, preserved left ventricular systolic function, estimated ejection fraction 55% with no regional wall motion abnormality, diastolic parameters are within normal range. 2. Trace mitral and tricuspid regurgitation. 3. No significant pericardial effusion. 4. Inferior vena cava is poorly visualized. Electronically signed by : Diaz Hogan MD 11/16/2021 21:21:47
[2021-11-16 16:52] LABS: Basophils # 0.3 K/mm3 (0-0.2); Basophils % 3.3 % (0.1-2.0); Eosinophils # 0.4 K/mm3 (0.0-0.4); Eosinophils % 4.6 % (0.1-12.0); Hematocrit 48.3 % (42.0-52.0); Hemoglobin 15.7 g/dL (14.1-18.0); Lymphocytes # 2.1 K/mm3 (0.7-4.5); Lymphocytes % 26.8 % (10-50); Mean Corpuscular HGB Conc 32.4 g/dL (31.8-35.4); Mean Corpuscular Hemoglobin 30.6 pg (27.0-31.2); Mean Corpuscular Volume 94.5 fl (80-94); Mean Platelet Volume 9.1 fl (7.4-10.4); Monocytes # 0.4 K/mm3 (0.1-1.0); Monocytes % 5.3 % (1.7-9.3); Neutrophils # 4.6 K/mm3 (1.8-7.8); Platelet Count 245 K/mm3 (142-424); Red Blood Count 5.11 M/mm3 (4.60-6.20); Red Cell Distribution Width 14.8 % (11.5-17.5); White Blood Count 7.7 K/mm3 (4.8-10.8)
[2021-11-16 18:09] LABS: Alanine Aminotransferase 34 U/L (12-78); Albumin Level 4.3 g/dl (3.5-5.0); Alkaline Phosphatase 64 U/L (38-126); Anion Gap 12.4 mEq/L (5-15); Aspartate Amino Transferase 29 U/L (17-59); Bilirubin,Direct 0.2 mg/dl (0.0-0.4); Bilirubin,Indirect 0.5 mg/dL (0.0-0.9); Bilirubin,Total 0.7 mg/dl (0.2-1.3); Bilirubin,Unconjugated 0.5 mg/dL (0.0-1.1); Blood Urea Nitrogen 16 mg/dl (9-20); Calcium 9.2 mg/dl (8.4-10.2); Carbon Dioxide 28 mmol/L (22.0-30.0); Chloride 100 mmol/L (98-107); Chol/HDL Ratio 4.5 (1-3.5); Cholesterol 162 mg/dl (140-200); Estimated Glomerular Filt Rate 79 ml/min (>60); GFR (African American) 95 ML/MIN (>60); Glucose 95 mg/dl (74-100); HDL Cholesterol 36 mg/dl (40-60); Potassium 4.4 mmoL/L (3.5-5.1); Sodium 136 mmol/L (136-145); Total Protein,Serum 6.7 g/dl (6.3-8.2); Triglycerides 254 mg/dl (30-150); VLDL Cholesterol 51 mg/dL (0-40)
[2021-11-16 18:26] LABS: Free T4 (Free Thyroxine) 0.95 ng/dl (0.78-2.19)
[2021-11-16 18:40] LABS: Thyroid Stimulating Hormone 1.31 uIU/mL (0.465-4.68)
[2021-11-16 19:23] LABS: Direct LDL Cholesterol 76.89 mg/dL (100-129)
== END ==
PROVIDERS: PCP Family Medicine; Visit Provider Physician Assistant
DX: R06.00 Dyspnea, unspecified (principal); R42 Dizziness and giddiness; I25.118 Atherosclerotic heart disease of native coronary artery with other forms of angina pectoris; I10 Essential (primary) hypertension; E78.2 Mixed hyperlipidemia; I51.9 Heart disease, unspecified; R53.83 Other fatigue; Z72.0 Tobacco use
CPT/HCPCS: 36415; 80048; 80061; 80076; 83735; 84439; 84443; 85025; 93306

== ENCOUNTER 2022-04-26 20:26 | Emergency (ER) | payer OTHER, SELFPAY ==
[2022-04-26 20:27] VITALS: BP 125/81; PULSE 72; RESP 18; TEMP 36.9; O2SAT 98; BMI 33.0
[2022-04-26 21:22] LABS: Coronavirus 19, PCR Not Detected (NotDetected); Influenza A, PCR Not Detected (NotDetected); Influenza B, PCR Not Detected (NotDetected)
--- NOTE | 2022-04-26 22:05 | HMH.EDURI ---
Discharge Plan Disposition Patient Disposition: Home, Self-Care Prescriptions Prescriptions: New prednisone [prednisone] 20 mg tablet 20 mg PO BID Qty: 10 0RF levofloxacin 500 mg tablet 500 mg PO DAILY Qty: 7 0RF No Action desloratadine 5 mg tablet 5 mg PO DAILY PRN Label Comments: TAKE ONE TABLET BY MOUTH EVERY DAY albuterol sulfate [Ventolin HFA] 90 mcg/actuation HFA aerosol inhaler 1 puff INHALATION QID PRN (Reason: shortness of breath or wheezing) Qty: 8.5 12RF aspirin 81 mg tablet,delayed release (DR/EC) 81 mg PO DAILY Qty: 100 10RF clonazepam 1 mg tablet 1 mg PO TID Qty: 90 5RF clopidogrel [Plavix] 75 mg tablet 75 mg PO DAILY Qty: 90 3RF fluoxetine [Prozac] 20 mg capsule 20 mg PO DAILY Qty: 90 3RF losartan 50 mg tablet 50 mg PO DAILY Qty: 90 3RF nicotine 21 mg/24 hr patch 24 hour 1 patch TRANSDERMA DAILY Qty: 28 6RF nitroglycerin 0.4 mg tablet, sublingual 0.4 mg SUBLINGUAL Q5MINP PRN (Reason: Chest Pain) Qty: 30 5RF pantoprazole 40 mg tablet,delayed release (DR/EC) See Rx Instructions .ROUTE .COMPLEX Qty: 90 5RF Dose Instruction: TAKE ONE TABLET BY MOUTH DAILY Rx Instructions: TAKE ONE TABLET BY MOUTH DAILY ranolazine [Ranexa] 1,000 mg tablet extended release 12 hr 1,000 mg PO BID Qty: 180 3RF rosuvastatin 20 mg tablet 20 mg PO HS Qty: 90 3RF Anoro Ellipta 62.5-25 mcg/actuation blister with device 1 inh INHALATION DAILY Qty: 60 10RF TobraDex 0.3-0.1 % ointment 1 applic OP TID Qty: 3.5 1RF Rx Instructions: space evenly during waking hours ergocalciferol (vitamin D2) 50,000 UNIT capsule 50,000 units PO WEEKLY Label Comments: TAKE ONE CAPSULE BY MOUTH ONCE a WEEK Referrals Follow up/Referrals: Chema Clark MD [Primary Care Provider] - See instructions Clinical Impressions Clinical Impression: Bronchitis, Tobacco abuse Instructions Patient Instructions: DI for Acute Bronchitis Discharge ED Provider: Loco Austin URI/Sore Throat HPI General Chief Complaint: Upper Respiratory Infection Stated Complaint: congestion Time Seen by Provider: 04/26/22 22:05 Mode of Arrival: Ambulatory Source of Information: Patient and Medical Record Limitations: No Limitations Description of Symptoms (Recalled from ER Triage Doc. by RN): PT STATES TO HAVE NASAL AND CHEST CONGESTIONS FOR 3 WEEKS. PT STATED THE CONGESTION IS WORSE WHEN HER WAKES UP. THE PT ALSO C/O A HEADACH AND COUGH . History of Present Illness HPI Narrative: uri sx and congested cough over the last few weeks - has tob use MD Complaint: cough, sore throat and nasal congestion Onset (ago): day(s) Severity: moderate Associated symptoms: denies other symptoms Related Data Home Medications Medication Instructions Recorded Confirmed ergocalciferol (vitamin D2) 1,250 50,000 units PO WEEKLY Supplement 11/03/20 02/15/22 mcg (50,000 unit) capsule desloratadine 5 mg tablet 5 mg PO DAILY PRN 11/10/21 02/15/22 Previous Rx's Medication Instructions Recorded albuterol sulfate 90 mcg/actuation 1 puff inhalation QID PRN 11/16/21 aerosol inhaler (Ventolin HFA) shortness of breath or wheezing #8.5 grams aspirin 81 mg tablet,delayed 81 mg PO DAILY Blood thinner #100 11/16/21 release tabs clonazepam 1 mg tablet 1 mg PO TID Anxiety #90 tabs 11/16/21 clopidogrel 75 mg tablet (Plavix) 75 mg PO DAILY #90 tabs 11/16/21 fluoxetine 20 mg capsule (Prozac) 20 mg PO DAILY #90 caps 11/16/21 losartan 50 mg tablet 50 mg PO DAILY Hypertension #90 11/16/21 tabs nicotine 21 mg/24 hr daily 1 patch transdermal DAILY #28 ea 11/16/21 transdermal patch nitroglycerin 0.4 mg sublingual 0.4 mg sublingual Q5MINP PRN Chest 11/16/21 tablet Pain ##30 pantoprazole 40 mg tablet,delayed See Rx Instructions .Route 11/16/21 release .COMPLEX #90 tabs ranolazine 1,000 mg 1,000 mg PO BID #180 tabs 11/16/21 tablet,extended release,12 hr (Ranexa) ro
[2022-04-26 22:56] VITALS: BP 144/78; PULSE 98; RESP 18; TEMP 36.7; O2SAT 95
--- NOTE | 2022-04-26 22:58 | PC.NURSE ---
PT STATES HE DOES NOT WANT TO WAIT FOR DISCHARGE INSTRUCTIONS TO BE COMPLETE AND HE WILL CHECK PATIENT PORTAL AND FOLLOW UP WITH HIS FAMILY DOCTOR IN THE MORNING.
== END 2022-04-26 22:59 | disposition home or self-care (01) ==
PROVIDERS: Emergency Provider Emergency Medicine; PCP Family Medicine
DX: J40 Bronchitis, not specified as acute or chronic (principal); F17.210 Nicotine dependence, cigarettes, uncomplicated; J44.9 Chronic obstructive pulmonary disease, unspecified; Z82.49 Family history of ischemic heart disease and other diseases of the circulatory system; G47.33 Obstructive sleep apnea (adult) (pediatric); K21.9 Gastro-esophageal reflux disease without esophagitis; E78.5 Hyperlipidemia, unspecified
CPT/HCPCS: 99283; C9803; U0003; U0005

== ENCOUNTER → 2022-05-26 12:28 | Outpatient (CLI) | payer OTHER, SELFPAY ==
[2022-05-26 13:02] LABS: Basophils # 0.1 K/mm3 (0-0.2); Eosinophils # 0.5 K/mm3 (0.0-0.4); Eosinophils % 4.7 % (0.1-12.0); Hematocrit 46.2 % (42.0-52.0); Hemoglobin 14.6 g/dL (14.1-18.0); Lymphocytes # 2.1 K/mm3 (0.7-4.5); Lymphocytes % 18.9 % (10-50); Mean Corpuscular HGB Conc 31.7 g/dL (31.8-35.4); Mean Corpuscular Hemoglobin 31.2 pg (27.0-31.2); Mean Corpuscular Volume 98.4 fl (80-94); Mean Platelet Volume 8.1 fl (7.4-10.4); Monocytes # 0.6 K/mm3 (0.1-1.0); Monocytes % 5.1 % (1.7-9.3); Neutrophils # 7.8 K/mm3 (1.8-7.8); Neutrophils % 70.3 % (37.0-80.0); Platelet Count 212 K/mm3 (142-424); Red Blood Count 4.69 M/mm3 (4.60-6.20); Red Cell Distribution Width 14.1 % (11.5-17.5); White Blood Count 11.2 K/mm3 (4.8-10.8)
[2022-05-26 13:41] LABS: Alanine Aminotransferase 28 U/L (12-78); Albumin Level 4.4 g/dl (3.5-5.0); Alkaline Phosphatase 90 U/L (38-126); Anion Gap 14.5 mEq/L (5-15); Aspartate Amino Transferase 25 U/L (17-59); Bilirubin,Indirect 0.6 mg/dL (0.0-0.9); Bilirubin,Total 0.6 mg/dl (0.2-1.3); Bilirubin,Unconjugated 0.6 mg/dL (0.0-1.1); Blood Urea Nitrogen 14 mg/dl (9-20); Calcium 9.4 mg/dl (8.4-10.2); Carbon Dioxide 30 mmol/L (22.0-30.0); Chloride 99 mmol/L (98-107); Chol/HDL Ratio 4.2 (1-3.5); Cholesterol 172 mg/dl (140-200); Estimated Glomerular Filt Rate 89 ml/min (>60); GFR (African American) 107 ML/MIN (>60); Glucose 83 mg/dl (74-100); HDL Cholesterol 41 mg/dl (40-60); Magnesium 1.8 mg/dl (1.6-2.3); Potassium 4.5 mmoL/L (3.5-5.1); Sodium 139 mmol/L (136-145); Total Protein,Serum 6.8 g/dl (6.3-8.2); Triglycerides 175 mg/dl (30-150); VLDL Cholesterol 35 mg/dL (0-40)
[2022-05-26 13:53] LABS: Direct LDL Cholesterol 91.41 mg/dL (100-129)
[2022-05-26 14:12] LABS: Thyroid Stimulating Hormone 1.29 uIU/mL (0.465-4.68)
== END ==
PROVIDERS: PCP Family Medicine; Visit Provider Nurse Practitioner
DX: I25.118 Atherosclerotic heart disease of native coronary artery with other forms of angina pectoris (principal); I20.8 Other forms of angina pectoris; E78.2 Mixed hyperlipidemia; I10 Essential (primary) hypertension; K21.00 Gastro-esophageal reflux disease with esophagitis, without bleeding; R10.9 Unspecified abdominal pain; R63.4 Abnormal weight loss; Z72.0 Tobacco use; M54.9 Dorsalgia, unspecified
CPT/HCPCS: 36415; 80048; 80061; 80076; 83735; 84439; 84443; 85025; 87086

== ENCOUNTER 2022-05-28 12:07 | Emergency (ER) | payer OTHER, SELFPAY ==
[2022-05-28 12:08] VITALS: BP 128/78; PULSE 65; RESP 18; TEMP 36.5; O2SAT 100; BMI 35.7
[2022-05-28 12:19] VITALS: BP 128/78; PULSE 75; RESP 16; O2SAT 99
--- NOTE | 2022-05-28 12:20 | PC.NURSE ---
ED MD AT BEDSIDE FOR EVALUATION
--- NOTE | 2022-05-28 12:28 | CT_ITS ---
PROCEDURE INFORMATION: Exam: CT Abdomen And Pelvis With Contrast Exam date and time: 05/28/2022 1:55 PM Age: 52 years old Clinical indication: Abdominal pain; Localized; Right; Patient HX: RT sided abd pain x days. Lbp (centered). HX kidney stones; Additional info: Ruq pain TECHNIQUE: Imaging protocol: Computed tomography of the abdomen and pelvis with contrast. Radiation optimization: All CT scans at this facility use at least one of these dose optimization techniques: automated exposure control; mA and/or kV adjustment per patient size (includes targeted exams where dose is matched to clinical indication); or iterative reconstruction. Contrast material: ISOVUE; Contrast volume: 75 ml; Contrast route: IV; COMPARISON: CT ANGIO CHEST PE PROTOCOL 06/13/2021 8:28 PM FINDINGS: Liver: Normal. No mass. Gallbladder and bile ducts: No evidence of cholelithiasis or cholecystitis. Pancreas: Normal. No ductal dilation. Spleen: Normal. No splenomegaly. Adrenal glands: Normal. No mass. Kidneys and ureters: No renal calcifications or obstructive uropathy as imaged. Stomach and bowel: Mild thickening of the [place] of the stomach and duodenum consistent with mild gastroduodenitis. A large amount of stool is noted throughout the colon. Appendix: No evidence of appendicitis. Intraperitoneal space: Normal. No significant fluid collection. Vasculature: Unremarkable. No abdominal aortic aneurysm. Lymph nodes: Unremarkable. No enlarged lymph nodes. Urinary bladder: Unremarkable as visualized. Reproductive: Unremarkable as visualized. Bones/joints: The lumbar spine demonstrates mild degenerative changes at multiple levels. Soft tissues: Soft tissues are normal. IMPRESSION: 1. No evidence of cholelithiasis or cholecystitis. Further evaluation with ultrasound is recommended if symptoms persist. 2. Mild thickening of the [place] of the stomach and duodenum consistent with mild gastroduodenitis. 3. No renal calcifications or obstructive uropathy as imaged. 4. A large amount of stool is noted throughout the colon. 5. The lumbar spine demonstrates mild degenerative changes at multiple levels.
--- NOTE | 2022-05-28 12:28 | CT_ITS ---
PROCEDURE INFORMATION: Exam: CT Chest With Contrast; Diagnostic Exam date and time: 05/28/2022 1:55 PM Age: 52 years old Clinical indication: Pain; Other: Abdominal; Prior surgery; Surgery date: 6+ months; Surgery type: Stent placement; Patient HX: 0 chest complaints. Smoker; Additional info: Right sided chest pain TECHNIQUE: Imaging protocol: Diagnostic computed tomography of the chest with contrast. Radiation optimization: All CT scans at this facility use at least one of these dose optimization techniques: automated exposure control; mA and/or kV adjustment per patient size (includes targeted exams where dose is matched to clinical indication); or iterative reconstruction. Contrast material: ISOVUE; Contrast volume: 75 ml; Contrast route: IV; COMPARISON: CT ANGIO CHEST PE PROTOCOL 06/13/2021 8:28 PM FINDINGS: Lungs: No focal pneumonia or pneumothorax. Granulomatous density noted within the left lung base. Pleural spaces: There are no pleural effusions present. Heart: Unremarkable. No cardiomegaly. No pericardial effusion. Lymph nodes: There is no evidence of mediastinal or hilar lymphadenopathy. Calcified hilar lymph nodes are noted. Vasculature: No evidence of pulmonary embolism. No evidence of aortic dissection. Coronary artery stents are noted. Bones/joints: Old bilateral rib fractures noted. The thoracic spine demonstrates mild degenerative changes at multiple levels. Soft tissues: There is nonspecific gynecomastia. IMPRESSION: 1. No evidence of pulmonary embolism. 2. No evidence of aortic dissection. 3. No focal pneumonia or pneumothorax.
[2022-05-28 12:30] VITALS: BP 127/71; PULSE 60; RESP 16; O2SAT 98
--- NOTE | 2022-05-28 12:46 | PC.NURSE ---
PT TO CT AT THIS TIME
[2022-05-28 13:04] LABS: Microscopic, Urine URINE MICROSCOPIC (MICROSCOPIC)
--- NOTE | 2022-05-28 13:13 | PC.NURSE ---
PT RETURNED FROM CT
[2022-05-28 13:17] LABS: Appearance,Urine CLEAR (Clear); Bilirubin,Urine Negative (Negative); Blood, Urine Negative (Negative); Color,Urine YELLOW (Yellow); Glucose,Urine (UA) Negative (Negative); Ketones,Urine Negative (Negative); Leukocyte Esterase,Urine Negative (Negative); Nitrate,Urine Negative (Negative); Protein,Urine Negative (Negative); Urobilinogen,Urine 0.2 EU/dl (0.2)
--- NOTE | 2022-05-28 13:25 | PC.NURSE ---
blood sent to lab at this time
[2022-05-28 13:30] LABS: Coronavirus 19, PCR Not Detected (NotDetected); Influenza A, PCR Not Detected (NotDetected); Influenza B, PCR Not Detected (NotDetected)
[2022-05-28 13:34] LABS: Basophils # 0.1 K/mm3 (0-0.2); Basophils % 1.1 % (0.1-2.0); Eosinophils # 0.4 K/mm3 (0.0-0.4); Hematocrit 41.7 % (42.0-52.0); Hemoglobin 13.5 g/dL (14.1-18.0); Lymphocytes # 2.3 K/mm3 (0.7-4.5); Lymphocytes % 24.1 % (10-50); Mean Corpuscular HGB Conc 32.5 g/dL (31.8-35.4); Mean Corpuscular Hemoglobin 30.9 pg (27.0-31.2); Mean Corpuscular Volume 95.2 fl (80-94); Mean Platelet Volume 8.2 fl (7.4-10.4); Monocytes # 0.4 K/mm3 (0.1-1.0); Monocytes % 4.6 % (1.7-9.3); Neutrophils # 6.3 K/mm3 (1.8-7.8); Neutrophils % 66.2 % (37.0-80.0); Platelet Count 214 K/mm3 (142-424); Red Blood Count 4.38 M/mm3 (4.60-6.20); Red Cell Distribution Width 13.9 % (11.5-17.5); White Blood Count 9.6 K/mm3 (4.8-10.8)
--- NOTE | 2022-05-28 13:39 | PC.NURSE ---
ROUNDED ON PT, NO NEEDS AT THIS TIME
[2022-05-28 13:51] LABS: Chloride 100 mmol/L (98-107); Sodium 138 mmol/L (136-145)
[2022-05-28 13:53] LABS: Blood Urea Nitrogen 10 mg/dl (9-20); Creatinine Clearance Estimated 153 mL/min (50-200); Estimated Glomerular Filt Rate 89 ml/min (>60); GFR (African American) 107 ML/MIN (>60)
[2022-05-28 13:54] LABS: Alanine Aminotransferase 25 U/L (12-78); Albumin/Globulin Ratio 1.5 (1.1-1.8); Alkaline Phosphatase 72 U/L (38-126); Aspartate Amino Transferase 25 U/L (17-59); Bilirubin,Total 0.4 mg/dl (0.2-1.3); Calcium 9.2 mg/dl (8.4-10.2); Carbon Dioxide 30 mmol/L (22.0-30.0); Globulin 2.7 g/dL (1.3-3.2); Glucose 94 mg/dl (74-100); Lipase 75 U/L (23-300); Total Protein,Serum 6.7 g/dl (6.3-8.2)
[2022-05-28 13:59] LABS: C-Reactive Protein 4.3 mg/L (0-4)
--- NOTE | 2022-05-28 14:04 | PC.NURSE ---
ED MD AT BEDSIDE TO DISCUSS POC WITH PT
--- NOTE | 2022-05-28 14:04 | [facility].EDGENADL ---
Discharge Plan Disposition Patient Disposition: Home, Self-Care Prescriptions Prescriptions: New methocarbamol [Methocarbamol] 750 mg tablet 750 mg PO Q6 PRN (Reason: Muscle Spasm) Qty: 30 0RF No Action desloratadine 5 mg tablet 5 mg PO DAILY PRN Label Comments: TAKE ONE TABLET BY MOUTH EVERY DAY albuterol sulfate [Ventolin HFA] 90 mcg/actuation HFA aerosol inhaler 1 puff INHALATION QID PRN (Reason: shortness of breath or wheezing) Qty: 8.5 12RF aspirin 81 mg tablet,delayed release (DR/EC) 81 mg PO DAILY Qty: 100 10RF clopidogrel [Plavix] 75 mg tablet 75 mg PO DAILY Qty: 90 3RF fluoxetine [Prozac] 20 mg capsule 20 mg PO DAILY Qty: 90 3RF losartan 50 mg tablet 50 mg PO DAILY Qty: 90 3RF nicotine 21 mg/24 hr patch 24 hour 1 patch TRANSDERMA DAILY Qty: 28 6RF nitroglycerin 0.4 mg tablet, sublingual 0.4 mg SUBLINGUAL Q5MINP PRN (Reason: Chest Pain) Qty: 30 5RF pantoprazole 40 mg tablet,delayed release (DR/EC) See Rx Instructions .ROUTE .COMPLEX Qty: 90 5RF Dose Instruction: TAKE ONE TABLET BY MOUTH DAILY Rx Instructions: TAKE ONE TABLET BY MOUTH DAILY ranolazine [Ranexa] 1,000 mg tablet extended release 12 hr 1,000 mg PO BID Qty: 180 3RF rosuvastatin 20 mg tablet 20 mg PO HS Qty: 90 3RF Anoro Ellipta 62.5-25 mcg/actuation blister with device 1 inh INHALATION DAILY Qty: 60 10RF clonazepam 1 mg tablet 1 mg PO TID Qty: 90 5RF ergocalciferol (vitamin D2) 50,000 UNIT capsule 50,000 units PO WEEKLY Label Comments: TAKE ONE CAPSULE BY MOUTH ONCE a WEEK Referrals Follow up/Referrals: Chema Clark MD [Primary Care Provider] - See instructions Clinical Impressions Clinical Impression: Painful rib, Abdominal pain, acute, right upper quadrant Instructions Patient Instructions: DI for Duodenitis Discharge ED Provider: Mahesh Ku General Adult HPI General Chief complaint: PAIN Stated complaint: Lower back pain radiating to front Time Seen by Provider: 05/28/22 12:15 Mode of Arrival: Ambulatory Limitations: No Limitations Description of Symptoms (Recalled from ER Triage Doc. by RN): PT REPORTS COUGH FOR ABOUT 1 MONTH, REPORT MID BACK AND RIB PAIN FOR ABOUT 2 WEEKS, PAIN BECAME WORSE TODAY History of Present Illness HPI narrative: Patient is a 53-year-old male with a past medical history of COPD, hypertension, reflux, hyperlipidemia who presents with right-sided abdominal and back pain. He states that for the last month he has been having mid back pain that wraps around to the front of his rib. He says that its been getting worse for the last 2 weeks. He saw his primary care physician who ordered a CT scan but he has not been scheduled for this yet. He describes it as a stabbing pain that mainly happens whenever he coughs. He does note that sometimes when he eats the pain is a little bit more worse. Denies any diarrhea. Denies any vomiting. Denies any hematemesis. Denies any numbness or tingling to his extremities. Denies any rash. Related Data Home Medications Medication Instructions Recorded Confirmed ergocalciferol (vitamin D2) 1,250 50,000 units PO WEEKLY Supplement 11/03/20 05/26/22 mcg (50,000 unit) capsule desloratadine 5 mg tablet 5 mg PO DAILY PRN 11/10/21 05/26/22 Previous Rx's Medication Instructions Recorded albuterol sulfate 90 mcg/actuation 1 puff inhalation QID PRN 11/16/21 aerosol inhaler (Ventolin HFA) shortness of breath or wheezing #8.5 grams aspirin 81 mg tablet,delayed 81 mg PO DAILY Blood thinner #100 11/16/21 release tabs clopidogrel 75 mg tablet (Plavix) 75 mg PO DAILY #90 tabs 11/16/21 fluoxetine 20 mg capsule (Prozac) 20 mg PO DAILY #90 caps 11/16/21 losartan 50 mg tablet 50 mg PO DAILY Hypertension #90 11/16/21 tabs nicotine 21 mg/24 hr daily 1 patch transdermal DAILY #28 ea 11/16/21 transdermal patch nitroglycerin 0.4 mg sublingual 0.4 mg sublingual Q5M
--- NOTE | 2022-05-28 14:14 | PC.NURSE ---
PT MEDICATED PER EMAR, WARM BLANKET PROVIDED. NO NEEDS VOICED
[2022-05-28 14:25] VITALS: BP 130/81; PULSE 60; RESP 17; TEMP 36.8; O2SAT 99
[2022-05-28 14:30] LABS: Procalcitonin 0.051 ng/mL (0.0-2.0)
== END 2022-05-28 14:30 | disposition home or self-care (01) ==
PROVIDERS: Emergency Provider Student in an Organized Health Care Education/Training Program; PCP Family Medicine
DX: R07.81 Pleurodynia (principal); R10.11 Right upper quadrant pain
CPT/HCPCS: 71260; 74177; 80053; 81001; 83690; 84145; 85025; 86140; 96374; 99285; C9803; Q9967; U0003; U0005

== ENCOUNTER 2022-10-25 18:39 | Emergency (ER) | payer OTHER, SELFPAY ==
[2022-10-25 18:46] VITALS: BP 148/86; PULSE 71; RESP 20; TEMP 36.5; O2SAT 96; BMI 37.3
--- NOTE | 2022-10-25 18:49 | XR_ITS ---
PROCEDURE INFORMATION: Exam: XR Chest Exam date and time: 10/25/2022 7:01 PM Age: 52 years old Clinical indication: Pain; Right-sided; Additional info: Rib pain/cough. Right posterior rib pain / cough. Smoker TECHNIQUE: Imaging protocol: Radiologic exam of the chest. Views: 2 views. COMPARISON: CT CHEST W CON 05/28/2022 1:55 PM FINDINGS: Lungs: Unremarkable. No consolidation. Pleural spaces: Unremarkable. No pleural effusion. No pneumothorax. Heart/Mediastinum: Unremarkable. No cardiomegaly. Bones/joints: Moderate degenerative changes noted throughout the thoracic spine. Stable calcification of the right chest is compatible with old right rib fractures and heterotopic calcification seen on prior CT. IMPRESSION: No acute disease
--- NOTE | 2022-10-25 18:52 | CT_ITS ---
PROCEDURE INFORMATION: Exam: CT Abdomen And Pelvis With Contrast Exam date and time: 10/25/2022 8:03 PM Age: 52 years old Clinical indication: Abdominal pain; Localized; Right upper quadrant (ruq); Additional info: Ruq pain TECHNIQUE: Imaging protocol: Computed tomography of the abdomen and pelvis with contrast. Radiation optimization: All CT scans at this facility use at least one of these dose optimization techniques: automated exposure control; mA and/or kV adjustment per patient size (includes targeted exams where dose is matched to clinical indication); or iterative reconstruction. Contrast material: ISOVUE; Contrast volume: 75 ml; Contrast route: IV; REPORTING DATA: Count of CT and Cardiac NM exams in prior 12 months: This patient has received 2 known CTs and 0 known cardiac nuclear medicine studies in the 12 months prior to the current study. COMPARISON: CT ABDOMEN PELVIS W CON 05/28/2022 1:55 PM FINDINGS: Liver: Normal. No mass. Gallbladder and bile ducts: Normal. No calcified stones. No ductal dilation. Pancreas: Normal. No ductal dilation. Spleen: Normal. No splenomegaly. Adrenal glands: Normal. No mass. Kidneys and ureters: Normal. No hydronephrosis. Stomach and bowel: Unremarkable. No obstruction. No mucosal thickening. Appendix: No evidence of appendicitis. Intraperitoneal space: Unremarkable. No free air. No significant fluid collection. Vasculature: Unremarkable. No abdominal aortic aneurysm. Lymph nodes: Unremarkable. No enlarged lymph nodes. Urinary bladder: Unremarkable as visualized. Reproductive: Unremarkable as visualized. Bones/joints: Degenerative changes noted in the spine. 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 No acute fracture evident. 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 Soft tissues: Unremarkable. IMPRESSION: No acute abnormality evident in the abdomen or pelvis. Chronic osseous changes as described.
--- NOTE | 2022-10-25 18:53 | [facility].EDGENADL ---
Discharge Plan Disposition Patient Disposition: Still a Patient Prescriptions Prescriptions: No Action desloratadine 5 mg tablet 5 mg PO DAILY PRN Label Comments: TAKE ONE TABLET BY MOUTH EVERY DAY aspirin 81 mg tablet,delayed release (DR/EC) 81 mg PO DAILY Qty: 100 10RF clopidogrel [Plavix] 75 mg tablet 75 mg PO DAILY Qty: 90 3RF fluoxetine [Prozac] 20 mg capsule 20 mg PO DAILY Qty: 90 3RF losartan 50 mg tablet 50 mg PO DAILY Qty: 90 3RF nicotine 21 mg/24 hr patch 24 hour 1 patch TRANSDERMA DAILY Qty: 28 6RF nitroglycerin 0.4 mg tablet, sublingual 0.4 mg SUBLINGUAL Q5MINP PRN (Reason: Chest Pain) Qty: 30 5RF rosuvastatin 20 mg tablet 20 mg PO HS Qty: 90 3RF Anoro Ellipta 62.5-25 mcg/actuation blister with device 1 inh INHALATION DAILY Qty: 60 10RF clonazepam 1 mg tablet 1 mg PO TID Qty: 90 5RF amoxicillin 875 mg tablet 875 mg PO BID 10 Days Qty: 20 0RF ergocalciferol (vitamin D2) 1,250 mcg (50,000 unit) capsule See Rx Instructions .ROUTE .COMPLEX Qty: 12 5RF Dose Instruction: TAKE ONE CAPSULE BY MOUTH ONCE a WEEK Rx Instructions: TAKE ONE CAPSULE BY MOUTH ONCE a WEEK famotidine 20 mg tablet See Rx Instructions .ROUTE .COMPLEX Qty: 30 2RF Dose Instruction: TAKE ONE TABLET BY MOUTH TWICE DAILY Rx Instructions: TAKE ONE TABLET BY MOUTH TWICE DAILY albuterol sulfate [Ventolin HFA] 90 mcg/actuation HFA aerosol inhaler 2 puff INHALATION QID PRN (Reason: shortness of breath or wheezing) Qty: 8.5 12RF methocarbamol [Methocarbamol] 750 mg tablet 750 mg PO Q6 PRN (Reason: Muscle Spasm) Qty: 30 0RF Referrals Follow up/Referrals: Chema Clark MD [Primary Care Provider] - See instructions Clinical Impressions Clinical Impression: Abdominal pain, acute, right upper quadrant Discharge ED Provider: Adal Bocanegra General Adult HPI General Chief complaint: PAIN Stated complaint: Right ribs pain Time Seen by Provider: 10/25/22 18:40 Mode of Arrival: Ambulatory Source of Information: Patient Limitations: No Limitations Description of Symptoms (Recalled from ER Triage Doc. by RN): pt to ed c/o right sided rib pain. pt states he got into a coughing fit and felt a sharp pain to his ribs. pt states he hears cracking when he takes a deep breath. History of Present Illness HPI narrative: 52-year-old male presents with right-sided abdominal pain. He says the pain is worse with eating and he has history of gallbladder sludge. No fever or chills. He has pain in his right upper back as well worse with movement and that is where he feels a cracking he has history of right fractures on that side. Has chronic cough not worse than normal at this time. He is smoking history. Not coughing up blood or productive sputum at this time. No nausea vomiting diarrhea burning when he pees Related Data Home Medications Medication Instructions Recorded Confirmed desloratadine 5 mg tablet 5 mg PO DAILY PRN 11/10/21 09/27/22 Previous Rx's Medication Instructions Recorded aspirin 81 mg tablet,delayed 81 mg PO DAILY Blood thinner #100 11/16/21 release tabs clopidogrel 75 mg tablet (Plavix) 75 mg PO DAILY #90 tabs 11/16/21 fluoxetine 20 mg capsule (Prozac) 20 mg PO DAILY #90 caps 11/16/21 losartan 50 mg tablet 50 mg PO DAILY Hypertension #90 11/16/21 tabs nicotine 21 mg/24 hr daily 1 patch transdermal DAILY #28 ea 11/16/21 transdermal patch nitroglycerin 0.4 mg sublingual 0.4 mg sublingual Q5MINP PRN Chest 11/16/21 tablet Pain ##30 rosuvastatin 20 mg tablet 20 mg PO HS Supplement #90 tabs 11/16/21 umeclidinium 62.5 mcg-vilanterol 1 inh inhalation DAILY COPD #60 ea 11/16/21 25 mcg/actuation powdr for inhalation (Anoro Ellipta) clonazepam 1 mg tablet 1 mg PO TID Anxiety #90 tabs 05/26/22 methocarbamol 750 mg tablet 750 mg PO Q6 PRN Muscle Spasm #30 05/28/22 tabs ergocalciferol (vitamin D2) 1,250 See Rx Instructions .
[2022-10-25 19:35] LABS: Basophils # 0.1 K/mm3 (0-0.2); Basophils % 0.9 % (0.1-2.0); Eosinophils # 0.6 K/mm3 (0.0-0.4); Eosinophils % 5.8 % (0.1-12.0); Hematocrit 45.4 % (42.0-52.0); Hemoglobin 14.9 g/dL (14.1-18.0); Lymphocytes # 2.9 K/mm3 (0.7-4.5); Lymphocytes % 26.8 % (10-50); Mean Corpuscular HGB Conc 32.7 g/dL (31.8-35.4); Mean Corpuscular Hemoglobin 30.3 pg (27.0-31.2); Mean Corpuscular Volume 92.7 fl (80-94); Mean Platelet Volume 8.2 fl (7.4-10.4); Monocytes # 0.4 K/mm3 (0.1-1.0); Monocytes % 3.5 % (1.7-9.3); Neutrophils # 6.9 K/mm3 (1.8-7.8); Neutrophils % 63.1 % (37.0-80.0); Platelet Count 255 K/mm3 (142-424); Red Cell Distribution Width 14.3 % (11.5-17.5); White Blood Count 10.9 K/mm3 (4.8-10.8)
[2022-10-25 19:39] LABS: Chloride 105 mmol/L (98-107); Potassium 4.7 mmoL/L (3.5-5.1); Sodium 141 mmol/L (136-145)
[2022-10-25 19:41] LABS: Alanine Aminotransferase 38 U/L (12-78); Aspartate Amino Transferase 34 U/L (17-59); Blood Urea Nitrogen 18 mg/dl (9-20); Creatinine Clearance Estimated 131 mL/min (50-200); Estimated Glomerular Filt Rate 70 ml/min (>60); GFR (African American) 85 ML/MIN (>60)
[2022-10-25 19:42] LABS: Albumin Level 4.2 g/dl (3.5-5.0); Albumin/Globulin Ratio 1.5 (1.1-1.8); Alkaline Phosphatase 66 U/L (38-126); Anion Gap 10.7 mEq/L (5-15); Bilirubin,Total 0.4 mg/dl (0.2-1.3); Calcium 8.8 mg/dl (8.4-10.2); Carbon Dioxide 30 mmol/L (22.0-30.0); Globulin 2.8 g/dL (1.3-3.2); Glucose 148 mg/dl (74-100); Lipase 158 U/L (23-300)
[2022-10-25 19:54] LABS: Troponin I < 0.01 ng/ml (0.00-0.034)
[2022-10-25 20:21] LABS: Microscopic, Urine URINE MICROSCOPIC (MICROSCOPIC)
[2022-10-25 20:29] LABS: Appearance,Urine CLEAR (Clear); Blood, Urine Negative (Negative); Color,Urine YELLOW (Yellow); Glucose,Urine (UA) Negative (Negative); Ketones,Urine Negative (Negative); Leukocyte Esterase,Urine Negative (Negative); Nitrate,Urine Negative (Negative); PH,Urine 6.5 (5.0-8.5); Protein,Urine Negative (Negative)
[2022-10-25 20:30] LABS: Bilirubin,Urine 1+ (Negative)
[2022-10-25 20:51] LABS: RBC,Urine Occasional #/hpf (0-3); Squamous Epithelial Cell,Urine Occasional #/hpf (0-5)
--- NOTE | 2022-10-25 20:51 | [facility].EDGENADL ---
Discharge Plan Disposition Patient Disposition: Home, Self-Care Prescriptions Prescriptions: New prednisone [prednisone] 20 mg tablet 20 mg PO BID Qty: 10 0RF No Action desloratadine 5 mg tablet 5 mg PO DAILY PRN Label Comments: TAKE ONE TABLET BY MOUTH EVERY DAY aspirin 81 mg tablet,delayed release (DR/EC) 81 mg PO DAILY Qty: 100 10RF clopidogrel [Plavix] 75 mg tablet 75 mg PO DAILY Qty: 90 3RF fluoxetine [Prozac] 20 mg capsule 20 mg PO DAILY Qty: 90 3RF losartan 50 mg tablet 50 mg PO DAILY Qty: 90 3RF nicotine 21 mg/24 hr patch 24 hour 1 patch TRANSDERMA DAILY Qty: 28 6RF nitroglycerin 0.4 mg tablet, sublingual 0.4 mg SUBLINGUAL Q5MINP PRN (Reason: Chest Pain) Qty: 30 5RF rosuvastatin 20 mg tablet 20 mg PO HS Qty: 90 3RF Anoro Ellipta 62.5-25 mcg/actuation blister with device 1 inh INHALATION DAILY Qty: 60 10RF clonazepam 1 mg tablet 1 mg PO TID Qty: 90 5RF ergocalciferol (vitamin D2) 1,250 mcg (50,000 unit) capsule See Rx Instructions .ROUTE .COMPLEX Qty: 12 5RF Dose Instruction: TAKE ONE CAPSULE BY MOUTH ONCE a WEEK Rx Instructions: TAKE ONE CAPSULE BY MOUTH ONCE a WEEK famotidine 20 mg tablet See Rx Instructions .ROUTE .COMPLEX Qty: 30 2RF Dose Instruction: TAKE ONE TABLET BY MOUTH TWICE DAILY Rx Instructions: TAKE ONE TABLET BY MOUTH TWICE DAILY albuterol sulfate [Ventolin HFA] 90 mcg/actuation HFA aerosol inhaler 2 puff INHALATION QID PRN (Reason: shortness of breath or wheezing) Qty: 8.5 12RF methocarbamol [Methocarbamol] 750 mg tablet 750 mg PO Q6 PRN (Reason: Muscle Spasm) Qty: 30 0RF Referrals Follow up/Referrals: Chema Clark MD [Primary Care Provider] - See instructions Clinical Impressions Clinical Impression: Abdominal pain, acute, right upper quadrant, COPD (chronic obstructive pulmonary disease), Rib pain on right side, Fractured rib Instructions Patient Instructions: DI for Acute Pain -- Adult Discharge ED Provider: Adal Bocanegra General Adult HPI General Chief complaint: PAIN Stated complaint: Right ribs pain Time Seen by Provider: 10/25/22 18:40 Mode of Arrival: Ambulatory Source of Information: Patient and Relative Limitations: No Limitations Description of Symptoms (Recalled from ER Triage Doc. by RN): pt to ed c/o right sided rib pain. pt states he got into a coughing fit and felt a sharp pain to his ribs. pt states he hears cracking when he takes a deep breath. History of Present Illness HPI narrative: pt with hx of prev rib fx and has rib pain worse after cough and deep insp -no fever or rash Onset (ago): day(s) Location: chest (ribs ) Severity: moderate Associated symptoms: denies other symptoms Related Data Home Medications Medication Instructions Recorded Confirmed desloratadine 5 mg tablet 5 mg PO DAILY PRN 11/10/21 09/27/22 Previous Rx's Medication Instructions Recorded aspirin 81 mg tablet,delayed 81 mg PO DAILY Blood thinner #100 11/16/21 release tabs clopidogrel 75 mg tablet (Plavix) 75 mg PO DAILY #90 tabs 11/16/21 fluoxetine 20 mg capsule (Prozac) 20 mg PO DAILY #90 caps 11/16/21 losartan 50 mg tablet 50 mg PO DAILY Hypertension #90 11/16/21 tabs nicotine 21 mg/24 hr daily 1 patch transdermal DAILY #28 ea 11/16/21 transdermal patch nitroglycerin 0.4 mg sublingual 0.4 mg sublingual Q5MINP PRN Chest 11/16/21 tablet Pain ##30 rosuvastatin 20 mg tablet 20 mg PO HS Supplement #90 tabs 11/16/21 umeclidinium 62.5 mcg-vilanterol 1 inh inhalation DAILY COPD #60 ea 11/16/21 25 mcg/actuation powdr for inhalation (Anoro Ellipta) clonazepam 1 mg tablet 1 mg PO TID Anxiety #90 tabs 05/26/22 methocarbamol 750 mg tablet 750 mg PO Q6 PRN Muscle Spasm #30 05/28/22 tabs ergocalciferol (vitamin D2) 1,250 See Rx Instructions .Route 06/27/22 mcg (50,000 unit) capsule .COMPLEX #12 caps famotidine 20 mg tablet See Rx Instructions .Route 10/11/22 .
[2022-10-25 20:52] LABS: Mucus,Urine 1+ /lpf
--- NOTE | 2022-10-25 20:58 | CT_ITS ---
PROCEDURE INFORMATION: Exam: CT Thoracic Spine Without Contrast Exam date and time: 10/25/2022 9:38 PM Age: 52 years old Clinical indication: Pain in thoracic spine TECHNIQUE: Imaging protocol: Computed tomography of the thoracic spine without contrast. Radiation optimization: All CT scans at this facility use at least one of these dose optimization techniques: automated exposure control; mA and/or kV adjustment per patient size (includes targeted exams where dose is matched to clinical indication); or iterative reconstruction. REPORTING DATA: Count of CT and Cardiac NM exams in prior 12 months: This patient has received 4 known CTs and 0 known cardiac nuclear medicine studies in the 12 months prior to the current study. COMPARISON: CR XR MULTIPLE SPINE 6+V 02/10/2021 9:05 AM FINDINGS: Bones/joints: Moderate multilevel right anterolateral osteophyte formation present in the lower thoracic spine. No significant disc bulge, uncovertebral spurring or spinal stenosis evident. No vertebral body compression or acute fracture. Osseous alignment is normal. Old right posterior rib fractures partially visualized. Soft tissues: Unremarkable. IMPRESSION: Chronic osseous changes as described. No evidence of acute injury.
--- NOTE | 2022-10-25 20:58 | CT_ITS ---
PROCEDURE INFORMATION: Exam: CT Chest Without Contrast; Diagnostic Exam date and time: 10/25/2022 9:41 PM Age: 52 years old Clinical indication: Pain; Right-sided TECHNIQUE: Imaging protocol: Diagnostic computed tomography of the chest without contrast. 3D rendering (Not supervised by radiologist): MIP and/or 3D reconstructed images were created by the technologist. Radiation optimization: All CT scans at this facility use at least one of these dose optimization techniques: automated exposure control; mA and/or kV adjustment per patient size (includes targeted exams where dose is matched to clinical indication); or iterative reconstruction. REPORTING DATA: Count of CT and Cardiac NM exams in prior 12 months: This patient has received 4 known CTs and 0 known cardiac nuclear medicine studies in the 12 months prior to the current study. COMPARISON: CT CHEST W CON 05/28/2022 1:55 PM FINDINGS: Lungs: There is a small left lower lobe calcified granuloma. Lungs are otherwise clear. Pleural spaces: Unremarkable. No pneumothorax. No pleural effusion. Heart: Unremarkable. No cardiomegaly. No pericardial effusion. Coronary arteries: Coronary artery stents noted. Lymph nodes: A few scattered small calcified lymph nodes noted in the left hilum and mediastinum. No pathologic lymphadenopathy. Vasculature: Unremarkable. No aortic aneurysm. Bones/joints: Several old, ununited right posterior rib fractures are noted (6th through 9th ribs). Moderate multilevel osteophyte formation noted throughout the thoracic spine. No acute fracture evident. Soft tissues: Unremarkable. IMPRESSION: No acute abnormality evident in the chest
[2022-10-25 22:34] VITALS: BP 117/80; PULSE 79; RESP 14; TEMP 36.8; O2SAT 99
== END 2022-10-25 22:44 | disposition home or self-care (01) ==
PROVIDERS: Emergency Provider Emergency Medicine; PCP Family Medicine
DX: R10.11 Right upper quadrant pain (principal); R07.81 Pleurodynia; F17.210 Nicotine dependence, cigarettes, uncomplicated
CPT/HCPCS: 71046; 71250; 72128; 74177; 80053; 81001; 83690; 84484; 85025; 96360; 96374; 99285; Q9967

== ENCOUNTER 2022-11-19 00:24 | Emergency (ER) | payer OTHER, SELFPAY ==
--- NOTE | 2022-11-19 00:32 | CT_ITS ---
PROCEDURE INFORMATION: Exam: CT Lumbar Spine Without Contrast Exam date and time: 11/19/2022 12:43 AM Age: 52 years old Clinical indication: Injury or trauma; Fall TECHNIQUE: Imaging protocol: Computed tomography of the lumbar spine without contrast. Radiation optimization: All CT scans at this facility use at least one of these dose optimization techniques: automated exposure control; mA and/or kV adjustment per patient size (includes targeted exams where dose is matched to clinical indication); or iterative reconstruction. REPORTING DATA: Count of CT and Cardiac NM exams in prior 12 months: This patient has received 5 known CTs and 0 known cardiac nuclear medicine studies in the 12 months prior to the current study. COMPARISON: CR XR MULTIPLE SPINE 6+V 10/02/2021 09:05 FINDINGS: Bones/joints: Multilevel degenerative changes of the lumbar spine producing multiple levels of mild spinal canal stenosis. Vasculature: The arteries demonstrate moderate atherosclerotic disease. Soft tissues: Unremarkable. IMPRESSION: No acute fracture or malalignment of the lumbar spine.
--- NOTE | 2022-11-19 00:32 | CT_ITS ---
PROCEDURE INFORMATION: Exam: CT Pelvis Without Contrast; Skeletal Exam date and time: 11/19/2022 12:46 AM Age: 52 years old Clinical indication: Injury or trauma; Fall; Additional info: Trauma, right hip /pelvic pain TECHNIQUE: Imaging protocol: Computed tomography of the pelvis without contrast. Exam focused on the skeleton. Radiation optimization: All CT scans at this facility use at least one of these dose optimization techniques: automated exposure control; mA and/or kV adjustment per patient size (includes targeted exams where dose is matched to clinical indication); or iterative reconstruction. REPORTING DATA: Count of CT and Cardiac NM exams in prior 12 months: This patient has received 5 known CTs and 0 known cardiac nuclear medicine studies in the 12 months prior to the current study. COMPARISON: CT ABDOMEN PELVIS W CON 05/20/2023 20:03 FINDINGS: Stomach and bowel: Mild sigmoid diverticulosis without diverticulitis. Vasculature: The arteries demonstrate moderate atherosclerotic disease. Bones/joints: No acute fracture or dislocation. 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 Soft tissues: Tiny fat containing umbilical hernia. IMPRESSION: 1. No acute fracture or dislocation. 2. 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
[2022-11-19 00:33] VITALS: BP 121/68; PULSE 71; O2SAT 97
[2022-11-19 00:35] VITALS: BP 121/68; PULSE 71; RESP 16; TEMP 36.4; O2SAT 98; BMI 35.4
[2022-11-19 01:00] VITALS: BP 121/73; PULSE 64; O2SAT 97
[2022-11-19 01:31] VITALS: BP 131/85; PULSE 76; RESP 18; O2SAT 95
[2022-11-19 01:34] VITALS: BP 121/73; PULSE 65; RESP 18; TEMP 36.6; O2SAT 99
--- NOTE | 2022-11-19 03:19 | HMH.EDGENADL ---
Discharge Plan Disposition Patient Disposition: Home, Self-Care Condition: Good Prescriptions Prescriptions: New lidocaine 5 % adhesive patch,medicated 1 patch topical DAILY Qty: 15 0RF Rx Instructions: leave on most painful area for up to 12 hrs diclofenac sodium [Voltaren Arthritis Pain] 1 % gel 2 g topical QID Qty: 100 0RF Rx Instructions: apply to single elbow, wrist or hand; for hand includes palm/fingers/back of hand No Action desloratadine 5 mg tablet 5 mg PO DAILY PRN Label Comments: TAKE ONE TABLET BY MOUTH EVERY DAY aspirin 81 mg tablet,delayed release (DR/EC) 81 mg PO DAILY Qty: 100 10RF clopidogrel [Plavix] 75 mg tablet 75 mg PO DAILY Qty: 90 3RF fluoxetine [Prozac] 20 mg capsule 20 mg PO DAILY Qty: 90 3RF losartan 50 mg tablet 50 mg PO DAILY Qty: 90 3RF nicotine 21 mg/24 hr patch 24 hour 1 patch TRANSDERMA DAILY Qty: 28 6RF nitroglycerin 0.4 mg tablet, sublingual 0.4 mg SUBLINGUAL Q5MINP PRN (Reason: Chest Pain) Qty: 30 5RF rosuvastatin 20 mg tablet 20 mg PO HS Qty: 90 3RF clonazepam 1 mg tablet 1 mg PO TID Qty: 90 5RF methocarbamol 750 mg tablet 750 mg PO Q6 PRN (Reason: Muscle Spasm) Qty: 30 0RF hydrocodone-acetaminophen 5-325 mg tablet 1 tab PO Q6H PRN (Reason: pain) Qty: 14 0RF ergocalciferol (vitamin D2) 1,250 mcg (50,000 unit) capsule See Rx Instructions .ROUTE .COMPLEX Qty: 12 5RF Dose Instruction: TAKE ONE CAPSULE BY MOUTH ONCE a WEEK Rx Instructions: TAKE ONE CAPSULE BY MOUTH ONCE a WEEK famotidine 20 mg tablet See Rx Instructions .ROUTE .COMPLEX Qty: 30 2RF Dose Instruction: TAKE ONE TABLET BY MOUTH TWICE DAILY Rx Instructions: TAKE ONE TABLET BY MOUTH TWICE DAILY albuterol sulfate [Ventolin HFA] 90 mcg/actuation HFA aerosol inhaler 2 puff INHALATION QID PRN (Reason: shortness of breath or wheezing) Qty: 8.5 12RF Anoro Ellipta 62.5-25 mcg/actuation blister with device See Rx Instructions .ROUTE .COMPLEX Qty: 60 10RF Dose Instruction: INHALE 1 PUFF BY MOUTH EVERY DAY FOR COPD Rx Instructions: INHALE 1 PUFF BY MOUTH EVERY DAY FOR COPD prednisone [prednisone] 20 mg tablet 20 mg PO BID Qty: 10 0RF Referrals Follow up/Referrals: Chema Clark MD [Primary Care Provider] - See instructions Activity Restrictions/Add. Instructions Additional Instructions/Restrictions: Please return immediately to the ER for any new or worsening symptoms. Please see your primary care provider in 2-3 days for re-evaluation of your symptoms. Clinical Impressions Clinical Impression: Back pain Discharge ED Provider: Ramakrishna Saldana General Adult HPI General Chief complaint: Fall Stated complaint: AO 11/18/22 1630 Injury right shoulder,and pelvic Time Seen by Provider: 11/19/22 00:29 Mode of Arrival: Ambulatory Source of Information: Patient Limitations: No Limitations Description of Symptoms (Recalled from ER Triage Doc. by RN): Pt states that today at 1600 he fell out of his tractor. States that he landed on his right side and since has had bilateral groin pain, lower abdominal pain and lower back pain. Also c/o increased urinary sensation. History of Present Illness HPI narrative: Notes was a very pleasant [id number] gentleman who presents with pain after falling off of a tractor. Patient is unsure what he had that he believes is his right side. He complains of bilateral pelvic pain. Also right hip pain and low back pain. Denies any numbness weakness paresthesias. No urinary retention, urinary incontinence, stool incontinence, saddle paresthesias. States he does have chronic back pain. Related Data Home Medications Medication Instructions Recorded Confirmed desloratadine 5 mg tablet 5 mg PO DAILY PRN 11/10/21 10/26/22 Previous Rx's Medication Instructions Recorded aspirin 81 mg tablet,delayed 81 mg PO DAILY Blood thinner #100 05
== END 2022-11-19 01:39 | disposition home or self-care (01) ==
PROVIDERS: Emergency Provider Emergency Medicine; PCP Family Medicine
DX: M54.50 Low back pain, unspecified (principal); R10.9 Unspecified abdominal pain; F17.210 Nicotine dependence, cigarettes, uncomplicated; V84.5XXA Driver of special agricultural vehicle injured in nontraffic accident, initial encounter
CPT/HCPCS: 72131; 72192; 99284; 99285

== ENCOUNTER 2022-12-31 19:17 | Emergency (ER) | payer OTHER, SELFPAY ==
[2022-12-31 19:19] VITALS: BP 123/72; PULSE 74; RESP 18; TEMP 36.6; O2SAT 97; BMI 37.3
--- NOTE | 2022-12-31 19:58 | EXP.UTC ---
Discharge Plan Disposition Patient Disposition: Home, Self-Care Condition: Good Prescriptions Prescriptions: New amoxicillin [amoxicillin] 875 mg tablet 875 mg PO Q12H Qty: 20 0RF methylprednisolone 4 mg Tablets,Dose Pack 4 mg PO DIRECTED Qty: 21 0RF No Action nicotine 21 mg/24 hr patch 24 hour 1 patch TRANSDERMA DAILY Qty: 28 6RF nitroglycerin 0.4 mg tablet, sublingual 0.4 mg SUBLINGUAL Q5MINP PRN (Reason: Chest Pain) Qty: 30 5RF clonazepam 1 mg tablet 1 mg PO TID Qty: 90 5RF methocarbamol 750 mg tablet 750 mg PO Q6 PRN (Reason: Muscle Spasm) Qty: 30 0RF hydrocodone-acetaminophen 5-325 mg tablet 1 tab PO Q6H PRN (Reason: pain) Qty: 14 0RF ergocalciferol (vitamin D2) 1,250 mcg (50,000 unit) capsule See Rx Instructions .ROUTE .COMPLEX Qty: 12 5RF Dose Instruction: TAKE ONE CAPSULE BY MOUTH ONCE a WEEK Rx Instructions: TAKE ONE CAPSULE BY MOUTH ONCE a WEEK albuterol sulfate [Ventolin HFA] 90 mcg/actuation HFA aerosol inhaler 2 puff INHALATION QID PRN (Reason: shortness of breath or wheezing) Qty: 8.5 12RF Anoro Ellipta 62.5-25 mcg/actuation blister with device See Rx Instructions .ROUTE .COMPLEX Qty: 60 10RF Dose Instruction: INHALE 1 PUFF BY MOUTH EVERY DAY FOR COPD Rx Instructions: INHALE 1 PUFF BY MOUTH EVERY DAY FOR COPD losartan 50 mg tablet See Rx Instructions .ROUTE .COMPLEX Qty: 90 3RF Dose Instruction: TAKE ONE TABLET BY MOUTH EVERY DAY Rx Instructions: TAKE ONE TABLET BY MOUTH EVERY DAY fluoxetine 20 mg capsule See Rx Instructions .ROUTE .COMPLEX Qty: 90 3RF Dose Instruction: TAKE ONE CAPSULE BY MOUTH EVERY DAY Rx Instructions: TAKE ONE CAPSULE BY MOUTH EVERY DAY rosuvastatin 20 mg tablet See Rx Instructions .ROUTE .COMPLEX Qty: 90 3RF Dose Instruction: TAKE ONE TABLET BY MOUTH EVERY DAY AT BEDTIME Rx Instructions: TAKE ONE TABLET BY MOUTH EVERY DAY AT BEDTIME famotidine 20 mg tablet See Rx Instructions .ROUTE .COMPLEX Qty: 30 3RF Dose Instruction: TAKE ONE TABLET BY MOUTH TWICE DAILY Rx Instructions: TAKE ONE TABLET BY MOUTH TWICE DAILY clopidogrel 75 mg tablet See Rx Instructions .ROUTE .COMPLEX Qty: 90 3RF Dose Instruction: TAKE ONE TABLET BY MOUTH EVERY DAY Rx Instructions: TAKE ONE TABLET BY MOUTH EVERY DAY aspirin 81 mg tablet,delayed release (DR/EC) See Rx Instructions .ROUTE .COMPLEX Qty: 100 3RF Dose Instruction: TAKE ONE TABLET BY MOUTH EVERY DAY FOR BLOOD THINNER Rx Instructions: TAKE ONE TABLET BY MOUTH EVERY DAY FOR BLOOD THINNER desloratadine 5 mg tablet See Rx Instructions .ROUTE .COMPLEX Qty: 30 5RF Dose Instruction: TAKE ONE TABLET BY MOUTH EVERY DAY Rx Instructions: TAKE ONE TABLET BY MOUTH EVERY DAY prednisone [prednisone] 20 mg tablet 20 mg PO BID Qty: 10 0RF lidocaine 5 % adhesive patch,medicated 1 patch topical DAILY Qty: 15 0RF Rx Instructions: leave on most painful area for up to 12 hrs diclofenac sodium [Voltaren Arthritis Pain] 1 % gel 2 g topical QID Qty: 100 0RF Rx Instructions: apply to single elbow, wrist or hand; for hand includes palm/fingers/back of hand Referrals Follow up/Referrals: Chema Clark MD [Primary Care Provider] - See instructions Activity Restrictions/Add. Instructions Additional Instructions/Restrictions: Drink plenty of fluids. Take tylenol or ibuprofen for pain or fever. Take the medications as directed. Follow up with your regular doctor. GO TO THE ER FOR ANY WORSENING SYMPTOMS Throw your tooth brush away and get a new one. Clinical Impressions Clinical Impression: Pharyngitis Instructions Patient Instructions: Strep Throat, DI for Strep Throat Discharge ED Provider: Quirino Sanderson [facility] HPI General Stated complaint: Sore throat Mode of Arrival: Ambulatory Source of [employer]
[2022-12-31 20:09] LABS: UTC Strep Screen (Rapid) Negative (Negative)
[2022-12-31 20:11] VITALS: BP 123/72; PULSE 74; RESP 18; TEMP 36.6; O2SAT 97
== END 2022-12-31 20:12 | disposition home or self-care (01) ==
PROVIDERS: Emergency Provider Nurse Practitioner Family; PCP Family Medicine
DX: J02.9 Acute pharyngitis, unspecified (principal); K21.9 Gastro-esophageal reflux disease without esophagitis; F17.210 Nicotine dependence, cigarettes, uncomplicated
CPT/HCPCS: 87880; 99212; 99214; G0463

== ENCOUNTER 2023-02-01 00:11 | Emergency (ER) | payer OTHER, SELFPAY ==
[2023-02-01 00:26] VITALS: BP 111/63; PULSE 74; RESP 14; TEMP 36.7; O2SAT 97; BMI 36.1; BMI 36.4
[2023-02-01 00:30] LABS: Microscopic, Urine URINE MICROSCOPIC (MICROSCOPIC)
[2023-02-01 00:32] LABS: Appearance,Urine CLEAR (Clear); Blood, Urine Negative (Negative); Color,Urine DK YELLOW (Yellow); Glucose,Urine (UA) Negative (Negative); Ketones,Urine Negative (Negative); Leukocyte Esterase,Urine Negative (Negative); Nitrate,Urine Negative (Negative); Protein,Urine Negative (Negative); Specific Gravity, Urine >= 1.030 (1.005-1.030)
[2023-02-01 00:34] LABS: Bilirubin,Urine Negative (Negative)
--- NOTE | 2023-02-01 00:39 | HMH.EDGENADL ---
Discharge Plan Disposition Patient Disposition: Home, Self-Care Condition: Good Prescriptions Prescriptions: New prednisone 20 mg tablet 40 mg PO DAILY 5 Days Qty: 10 0RF methocarbamol 750 mg tablet 1,500 mg PO TID 5 Days Qty: 30 0RF No Action nicotine 21 mg/24 hr patch 24 hour 1 patch TRANSDERMA DAILY Qty: 28 6RF nitroglycerin 0.4 mg tablet, sublingual 0.4 mg SUBLINGUAL Q5MINP PRN (Reason: Chest Pain) Qty: 30 5RF clonazepam 1 mg tablet 1 mg PO TID Qty: 90 5RF methocarbamol 750 mg tablet 750 mg PO Q6 PRN (Reason: Muscle Spasm) Qty: 30 0RF hydrocodone-acetaminophen 5-325 mg tablet 1 tab PO Q6H PRN (Reason: pain) Qty: 14 0RF ergocalciferol (vitamin D2) 1,250 mcg (50,000 unit) capsule See Rx Instructions .ROUTE .COMPLEX Qty: 12 5RF Dose Instruction: TAKE ONE CAPSULE BY MOUTH ONCE a WEEK Rx Instructions: TAKE ONE CAPSULE BY MOUTH ONCE a WEEK albuterol sulfate [Ventolin HFA] 90 mcg/actuation HFA aerosol inhaler 2 puff INHALATION QID PRN (Reason: shortness of breath or wheezing) Qty: 8.5 12RF Anoro Ellipta 62.5-25 mcg/actuation blister with device See Rx Instructions .ROUTE .COMPLEX Qty: 60 10RF Dose Instruction: INHALE 1 PUFF BY MOUTH EVERY DAY FOR COPD Rx Instructions: INHALE 1 PUFF BY MOUTH EVERY DAY FOR COPD losartan 50 mg tablet See Rx Instructions .ROUTE .COMPLEX Qty: 90 3RF Dose Instruction: TAKE ONE TABLET BY MOUTH EVERY DAY Rx Instructions: TAKE ONE TABLET BY MOUTH EVERY DAY fluoxetine 20 mg capsule See Rx Instructions .ROUTE .COMPLEX Qty: 90 3RF Dose Instruction: TAKE ONE CAPSULE BY MOUTH EVERY DAY Rx Instructions: TAKE ONE CAPSULE BY MOUTH EVERY DAY rosuvastatin 20 mg tablet See Rx Instructions .ROUTE .COMPLEX Qty: 90 3RF Dose Instruction: TAKE ONE TABLET BY MOUTH EVERY DAY AT BEDTIME Rx Instructions: TAKE ONE TABLET BY MOUTH EVERY DAY AT BEDTIME famotidine 20 mg tablet See Rx Instructions .ROUTE .COMPLEX Qty: 30 3RF Dose Instruction: TAKE ONE TABLET BY MOUTH TWICE DAILY Rx Instructions: TAKE ONE TABLET BY MOUTH TWICE DAILY clopidogrel 75 mg tablet See Rx Instructions .ROUTE .COMPLEX Qty: 90 3RF Dose Instruction: TAKE ONE TABLET BY MOUTH EVERY DAY Rx Instructions: TAKE ONE TABLET BY MOUTH EVERY DAY aspirin 81 mg tablet,delayed release (DR/EC) See Rx Instructions .ROUTE .COMPLEX Qty: 100 3RF Dose Instruction: TAKE ONE TABLET BY MOUTH EVERY DAY FOR BLOOD THINNER Rx Instructions: TAKE ONE TABLET BY MOUTH EVERY DAY FOR BLOOD THINNER desloratadine 5 mg tablet See Rx Instructions .ROUTE .COMPLEX Qty: 30 5RF Dose Instruction: TAKE ONE TABLET BY MOUTH EVERY DAY Rx Instructions: TAKE ONE TABLET BY MOUTH EVERY DAY lidocaine 5 % adhesive patch,medicated 1 patch topical DAILY Qty: 15 0RF Rx Instructions: leave on most painful area for up to 12 hrs diclofenac sodium [Voltaren Arthritis Pain] 1 % gel 2 g topical QID Qty: 100 0RF Rx Instructions: apply to single elbow, wrist or hand; for hand includes palm/fingers/back of hand Referrals Follow up/Referrals: Brian Javed APRN [Primary Care Provider] - See instructions Activity Restrictions/Add. Instructions Additional Instructions/Restrictions: Follow-up with your family doctor regarding this visit to the emergency department and control of chronic back pain. Take Tylenol 1000 mg every 6 hours (4 times daily) and ibuprofen 400 mg every 6 hours (4 times daily) as needed with food and water to prevent GI upset and kidney damage. Prednisone daily (2 tablets) for 5 days. Robaxin (methocarbamol) 3 times daily (2 tablets) for 5 days. Robaxin can make you tired, so do not operate heavy machinery, or engage in activities that can injure you or others while taking medication. Clinical Impressions Clinical Impression: Musculoskeletal strain
[2023-02-01 00:50] LABS: Bacteria,Urine 1+ /lpf; Mucus,Urine 1+ /lpf; RBC,Urine Occasional #/hpf (0-3); WBC,Urine Occasional #/hpf (0-3)
--- NOTE | 2023-02-01 01:09 | PC.NURSE ---
at bedside with ultra sound
[2023-02-01 01:28] VITALS: BP 111/63; PULSE 78; RESP 18; TEMP 36.6; O2SAT 98
[2023-02-01 01:30] VITALS: BP 122/74; PULSE 60; RESP 20; O2SAT 97
== END 2023-02-01 01:28 | disposition home or self-care (01) ==
PROVIDERS: Emergency Provider Emergency Medicine; PCP Nurse Practitioner Family
DX: M54.50 Low back pain, unspecified (principal); G89.29 Other chronic pain; M19.09 Primary osteoarthritis, other specified site; I25.10 Atherosclerotic heart disease of native coronary artery without angina pectoris; J44.9 Chronic obstructive pulmonary disease, unspecified; K21.9 Gastro-esophageal reflux disease without esophagitis; Z79.82 Long term (current) use of aspirin; X50.0XXA Overexertion from strenuous movement or load, initial encounter; F17.210 Nicotine dependence, cigarettes, uncomplicated
CPT/HCPCS: 81001; 96372; 99285

== ENCOUNTER 2023-10-10 17:49 | Emergency (ER) | payer OTHER, SELFPAY ==
[2023-10-10 18:45] VITALS: BP 124/74; PULSE 77; RESP 20; TEMP 36.6; O2SAT 98; BMI 35.4
--- NOTE | 2023-10-10 19:23 | ED_ITS ---
Discharge Plan Disposition Patient Disposition: Home, Self-Care Condition: Good Prescriptions Prescriptions: New benzonatate 100 mg capsule 100 mg PO TID PRN (Reason: cough) Qty: 30 0RF guaifenesin [Mucinex] 1,200 mg tablet extended release 12hr 1,200 mg PO BID PRN (Reason: congestion) Qty: 20 0RF azithromycin [Zithromax Z-Oscar] 250 mg tablet See Rx Instructions .ROUTE .COMPLEX 5 Days Qty: 6 0RF Rx Instructions: For 250 mg dose pack: take 500 mg today (day 1), then 250 mg for 4 days (days 2-5) prednisone 20 mg tablet 20 mg PO BID 5 Days Qty: 10 0RF No Action nicotine 21 mg/24 hr patch 24 hour 1 patch TRANSDERMA DAILY Qty: 28 6RF nitroglycerin 0.4 mg tablet, sublingual 0.4 mg SUBLINGUAL Q5MINP PRN (Reason: Chest Pain) Qty: 30 5RF clonazepam 1 mg tablet 1 mg PO TID Qty: 90 5RF pantoprazole 40 mg tablet,delayed release (DR/EC) 40 mg PO DAILY Qty: 90 3RF rosuvastatin 40 mg tablet 40 mg PO DAILY Qty: 90 3RF ergocalciferol (vitamin D2) 1,250 mcg (50,000 unit) capsule See Rx Instructions .ROUTE .COMPLEX Qty: 12 5RF Dose Instruction: TAKE ONE CAPSULE BY MOUTH ONCE a WEEK Rx Instructions: TAKE ONE CAPSULE BY MOUTH ONCE a WEEK albuterol sulfate [Ventolin HFA] 90 mcg/actuation HFA aerosol inhaler 2 puff INHALATION QID PRN (Reason: shortness of breath or wheezing) Qty: 8.5 12RF Anoro Ellipta 62.5-25 mcg/actuation blister with device See Rx Instructions .ROUTE .COMPLEX Qty: 60 10RF Dose Instruction: INHALE 1 PUFF BY MOUTH EVERY DAY FOR COPD Rx Instructions: INHALE 1 PUFF BY MOUTH EVERY DAY FOR COPD losartan 50 mg tablet See Rx Instructions .ROUTE .COMPLEX Qty: 90 3RF Dose Instruction: TAKE ONE TABLET BY MOUTH EVERY DAY Rx Instructions: TAKE ONE TABLET BY MOUTH EVERY DAY fluoxetine 20 mg capsule See Rx Instructions .ROUTE .COMPLEX Qty: 90 3RF Dose Instruction: TAKE ONE CAPSULE BY MOUTH EVERY DAY Rx Instructions: TAKE ONE CAPSULE BY MOUTH EVERY DAY aspirin 81 mg tablet,delayed release (DR/EC) See Rx Instructions .ROUTE .COMPLEX Qty: 100 3RF Dose Instruction: TAKE ONE TABLET BY MOUTH EVERY DAY FOR BLOOD THINNER Rx Instructions: TAKE ONE TABLET BY MOUTH EVERY DAY FOR BLOOD THINNER desloratadine 5 mg tablet See Rx Instructions .ROUTE .COMPLEX Qty: 30 5RF Dose Instruction: TAKE ONE TABLET BY MOUTH EVERY DAY Rx Instructions: TAKE ONE TABLET BY MOUTH EVERY DAY famotidine 20 mg tablet See Rx Instructions .ROUTE .COMPLEX Qty: 30 3RF Dose Instruction: TAKE ONE TABLET BY MOUTH TWICE DAILY Rx Instructions: TAKE ONE TABLET BY MOUTH TWICE DAILY diclofenac sodium [Voltaren Arthritis Pain] 1 % gel 2 g topical QID Qty: 100 0RF Rx Instructions: apply to single elbow, wrist or hand; for hand includes palm/fingers/back of hand clopidogrel 75 mg tablet 75 mg PO DAILY Patient Comments: TAKE ONE TABLET BY MOUTH EVERY DAY Referrals Follow up/Referrals: Chema Clark MD [Primary Care Provider] - See instructions Activity Restrictions/Add. Instructions Additional Instructions/Restrictions: * Start antibiotic today. Be sure to complete entire prescription even if feeling better * Monitor temp. Tylenol every 4 hours as needed and / or ibuprofen every 6 hours as needed ( As long as your primary care physician has told you that it ok to take both. For fever/aches/pains ER if no less than 101 despite Tylenol or Motrin * Humidifier/vaporizer or hot steamy shower * Inhaler every 4-6 hours as needed like we discussed. If unsure how to use it, ask pharmacist to demonstrate how. Should help open airways and improve cough, wheezing, and shortness of breath * Mucinex for your cough and cough suppressant only at night. Be sure to drink lots of water. Insurance may not cover a prescriptions for mucinex. Might be cheaper to get 400mg tablets and take 2 tablet in the morning, mid-day and evening with lots of water. *Tessalon Perles will not cause drowsiness but use at bedtime to help stop cough so that you may get some rest. *Start steroid today. Helps with inflammation therefore, cough and wheezing. Follow directions on the package. Reviewed side effects. Patient reports taking them before. Follow up IMMEDIATELY for new or worsening of symptoms OR no noticeable improvement over the next 48-72 hours. 911 immediately for any life threatening symptoms such as chest pain or difficulty breathing Clinical Impressions Clinical Impression: Bronchitis Instructions Patient Instructions: DI for Acute Bronchitis, DI for Cough -- Adult Discharge ED Provider: Rosanna Anguiano [facility] General Stated complaint: congestion,cough,shortness of breath Mode of Arrival: Ambulatory Source of Information: Patient Limitations: No Limitations Time Seen by Provider: 10/10/23 19:23 Description of Symptoms (Recalled from Triage Doc. by RN): Pt's symptoms are dry cough, chest congestion, and RAMÍREZ. HEENT Symptoms (Recalled from RN notes): Yes Resp Symptoms (Recalled from RN notes): No Skin Symptoms (Recalled from RN notes): No MS Symptoms (Recalled from RN notes): No Functional Status (Recalled from RN notes): n/a History of Present Illness Provider Complaint: Patient states that he has been having some chest congestion, cough, sinus congestion and pressure and headache for about 2 weeks that has not got any better so today he was bringing his daughter in so he came in too to get checked Related Data Home Medications Medication Instructions Recorded Confirmed clopidogrel 75 mg tablet 75 mg PO DAILY 10/10/23 10/10/23 Previous Rx's Medication Instructions Recorded nicotine 21 mg/24 hr daily 1 patch transdermal DAILY #28 ea 11/16/21 transdermal patch nitroglycerin 0.4 mg sublingual 0.4 mg sublingual Q5MINP PRN Chest 11/16/21 tablet Pain ##30 ergocalciferol (vitamin D2) 1,250 See Rx Instructions .Route 06/27/22 mcg (50,000 unit) capsule .COMPLEX #12 caps albuterol sulfate 90 mcg/actuation 2 puff inhalation QID PRN 10/13/22 aerosol inhaler (Ventolin HFA) shortness of breath or wheezing #8.5 grams umeclidinium 62.5 mcg-vilanterol See Rx Instructions .Route 10/27/22 25 mcg/actuation powdr for .COMPLEX #60 blisters inhalation (Anoro Ellipta) diclofenac sodium 1 % topical gel 2 g topical QID #100 grams 11/19/22 (Voltaren Arthritis Pain) aspirin 81 mg tablet,delayed See Rx Instructions .Route 11/28/22 release .COMPLEX #100 tabs fluoxetine 20 mg capsule See Rx Instructions .Route 11/28/22 .COMPLEX #90 caps losartan 50 mg tablet See Rx Instructions .Route 11/28/22 .COMPLEX #90 tabs desloratadine 5 mg tablet See Rx Instructions .Route 12/01/22 .COMPLEX #30 tabs clonazepam 1 mg tablet 1 mg PO TID Anxiety #90 tabs 01/20/23 pantoprazole 40 mg tablet,delayed 40 mg PO DAILY #90 tabs 05/09/23 release rosuvastatin 40 mg tablet 40 mg PO DAILY #90 tabs 05/09/23 famotidine 20 mg tablet See Rx Instructions .Route 08/29/23 .COMPLEX #30 tabs azithromycin 250 mg tablet See Rx Instructions PO .COMPLEX 5 10/10/23 (Zithromax Z-Oscar) days #6 tabs benzonatate 100 mg capsule 100 mg PO TID PRN cough #30 caps 10/10/23 guaifenesin 1,200 mg tablet, 1,200 mg PO BID PRN congestion #20 10/10/23 extended release 12 hr (Mucinex) tabs prednisone 20 mg tablet 20 mg PO BID 5 days #10 tabs 10/10/23 Allergies Allergy/AdvReac Type Severity Reaction Status Date / Time No Known Allergies Allergy Verified 10/10/23 18:57 Worker's Comp Is this a Worker's Comp case?: No [facility] Disclaimer: The information contained in this section may have been updated after the patient was seen, as this information can be updated by other users. 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 current occupational exposures/hazards: No caffeine: Yes ROS Obtained: Yes All systems reviewed & no additional complaints except as documented and Yes Systems reviewed as appropriate & no additional complaints except as documented Constitutional Constitutional: Reports system reviewed and no additional complaints, except as documented and Reports as per HPI ENT Ears, Nose, Mouth, and Throat: Reports system reviewed and no additional complaints, except as documented, Reports as per HPI, Reports sinus pain and Reports sinus pressure Cardiovascular Cardiovascular: Reports system reviewed and no additional complaints, except as documented and Reports as per HPI Respiratory Respiratory: Reports system reviewed and no additional complaints, except as documented, Reports as per HPI, Reports chest congestion and Reports cough Physical Exam General General appearance: alert and in no apparent distress ENT ENT exam: Present mucous membranes moist Expanded ENT Exam Nose exam: Present sinus tenderness Respiratory Respiratory exam: Present normal lung sounds bilaterally; Absent respiratory distress or wheezes Cardiovascular Cardiovascular exam: Present regular rate, normal rhythm and normal heart sounds Neurological Exam Neurological exam: Present alert, oriented X3 and normal gait Medical Decision Making Gerson Inquiry Pt receiving controlled substance: No [place] was queried for this patient: No Vital Signs: 10/10/23 18:45 Temperature 97.8 F Temperature Source Oral Pulse Rate [Right Radial] 77 Respiratory Rate 20 Blood Pressure [Right Arm] 124/74 Blood Pressure Mean [Right Arm] 90 Blood Pressure Source [Right Arm] Automatic Cuff Blood Pressure Position [Right Arm] Sitting 02 Sat by Pulse Oximetry 98 Oxygen Delivery Method Room Air Medical Decision Narrative: Discussed chest xray patient declined at this time will treat for bronchitis with Azithromycin, prednisone and tessalone perrles patient states that he has taken them before without complications or reactions
[2023-10-10 19:53] VITALS: BP 124/74; PULSE 77; RESP 20; TEMP 36.6; O2SAT 98
== END 2023-10-10 19:53 | disposition home or self-care (01) ==
PROVIDERS: Emergency Provider Nurse Practitioner; PCP Family Medicine
DX: J20.9 Acute bronchitis, unspecified (principal); R51.9 Headache, unspecified; R05.9 Cough, unspecified; R09.81 Nasal congestion; F17.210 Nicotine dependence, cigarettes, uncomplicated; K21.9 Gastro-esophageal reflux disease without esophagitis
CPT/HCPCS: 99212; 99214; G0463

== ENCOUNTER 2024-01-31 08:32 | Outpatient (CLI) | payer OTHER, SELFPAY ==
[2024-01-31 18:42] LABS: Basophils # 0.1 K/mm3 (0-0.2); Eosinophils # 0.5 K/mm3 (0.0-0.4); Eosinophils % 6.4 % (0.1-12.0); Hemoglobin 15.2 g/dL (14.1-18.0); Lymphocytes # 2.5 K/mm3 (0.7-4.5); Lymphocytes % 31.5 % (10-50); Mean Corpuscular HGB Conc 34.6 g/dL (31.8-35.4); Mean Corpuscular Hemoglobin 31.8 pg (27.0-31.2); Mean Corpuscular Volume 91.7 fl (80-94); Mean Platelet Volume 10.3 fl (7.4-10.4); Monocytes # 0.4 K/mm3 (0.1-1.0); Monocytes % 5.1 % (1.7-9.3); Neutrophils # 4.5 K/mm3 (1.8-7.8); Neutrophils % 55.9 % (37.0-80.0); Platelet Count 242 K/mm3 (142-424); Red Blood Count 4.79 M/mm3 (4.60-6.20); Red Cell Distribution Width 14.8 % (11.5-17.5)
[2024-01-31 19:29] LABS: Alanine Aminotransferase 32 U/L (12-78); Albumin Level 4.2 g/dl (3.5-5.0); Albumin/Globulin Ratio 1.4 (1.1-1.8); Alkaline Phosphatase 77 U/L (38-126); Anion Gap 9.3 mEq/L (5-15); Aspartate Amino Transferase 28 U/L (17-59); Bilirubin,Total 0.6 mg/dl (0.2-1.3); Blood Urea Nitrogen 15 mg/dl (9-20); Calcium 9.2 mg/dl (8.4-10.2); Carbon Dioxide 28 mmol/L (22.0-30.0); Chloride 106 mmol/L (98-107); Chol/HDL Ratio 4.2 (1-3.5); Cholesterol 160 mg/dl (140-200); Estimated Glomerular Filt Rate 78 ml/min (>60); GFR (African American) 95 ML/MIN (>60); Globulin 2.9 g/dL (1.3-3.2); Glucose 83 mg/dl (74-100); HDL Cholesterol 38 mg/dl (40-60); Potassium 4.3 mmoL/L (3.5-5.1); Sodium 139 mmol/L (136-145); Total Protein,Serum 7.1 g/dl (6.3-8.2); Triglycerides 164 mg/dl (30-150); VLDL Cholesterol 33 mg/dL (0-40)
[2024-01-31 19:39] LABS: Hemoglobin A1C 5.4 % (4.0-6.0)
[2024-01-31 19:41] LABS: Direct LDL Cholesterol 81.87 mg/dL (100-129)
[2024-01-31 20:01] LABS: Prostate Specific Ag Screen 0.8 ng/ml (0.0-4.0)
[2024-01-31 21:35] LABS: 25-OH Vitamin D, Total 44.6 ng/mL (30-100)
== END 2024-01-31 23:59 | disposition home or self-care (01) ==
LOC: LAB.DROPOF 02-02 08:32
PROVIDERS: PCP Nurse Practitioner Family; Visit Provider Nurse Practitioner Family
DX: R10.13 Epigastric pain (principal); E66.9 Obesity, unspecified; Z68.34 Body mass index [BMI] 34.0-34.9, adult
CPT/HCPCS: 80050; 80053; 80061; 82306; 83036; 84443; 85025; G0103

== ENCOUNTER 2024-02-03 21:42 | Emergency (ER) | payer OTHER, SELFPAY ==
[2024-02-03 21:44] VITALS: BP 142/77; PULSE 63; RESP 15; TEMP 36.8; O2SAT 100; BMI 35.5; BMI 35.9
--- NOTE | 2024-02-03 21:45 | XR_ITS ---
PROCEDURE INFORMATION: Exam: XR Chest Exam date and time: 02/03/2024 9:40 PM Age: 53 years old Clinical indication: Angina pectoris and chest pressure; Patient HX: Chest pain history of heart stents; Additional info: Cp TECHNIQUE: Imaging protocol: Radiologic exam of the chest. Views: 2 views. Total images: 2 COMPARISON: CT CHEST WO CON 10/25/2022 9:41 PM FINDINGS: Lungs: Calcified left hilar lymph nodes. Calcified left lower lobe granuloma. No acute infiltrate, airspace consolidation or vascular congestion. No pulmonary edema. Pleural spaces: Unremarkable. No pleural effusion. No pneumothorax. Heart/Mediastinum: Unremarkable. No cardiomegaly. No mediastinal widening or hilar enlargement. Bones/joints: Multiple remote posterior right rib fracture deformities. Moderate degenerative changes thoracic spine. Additional remote left inferolateral rib fractures. IMPRESSION: No radiographically acute cardiopulmonary process.
--- NOTE | 2024-02-03 21:45 | ECG_ITS ---
APPROVED REPORT Exam: Resting ECG HR:60 bpm ECG Measurements Heart Rate 60 AXES OR 123 P 61 QRSd 104 QRS 82 QT 394 T 51 QTc 394 Conclusion SINUS RHYTHM NORMAL ECG UNCONFIRMED REPORT Electronically signed by : ROSA ALTAMIRANO, 02/12/2024 06:31:32
[2024-02-03 21:52] LABS: Basophils # 0.2 K/mm3 (0-0.2); Basophils % 1.8 % (0.1-2.0); Eosinophils # 0.5 K/mm3 (0.0-0.4); Eosinophils % 5.1 % (0.1-12.0); Hematocrit 45.4 % (42.0-52.0); Hemoglobin 14.8 g/dL (14.1-18.0); Lymphocytes # 3.8 K/mm3 (0.7-4.5); Mean Corpuscular HGB Conc 32.6 g/dL (31.8-35.4); Mean Corpuscular Hemoglobin 30.2 pg (27.0-31.2); Mean Corpuscular Volume 92.5 fl (80-94); Mean Platelet Volume 8.5 fl (7.4-10.4); Monocytes # 0.5 K/mm3 (0.1-1.0); Monocytes % 5.1 % (1.7-9.3); Neutrophils # 5.4 K/mm3 (1.8-7.8); Platelet Count 276 K/mm3 (142-424); Red Blood Count 4.91 M/mm3 (4.60-6.20); Red Cell Distribution Width 15.2 % (11.5-17.5); White Blood Count 10.5 K/mm3 (4.8-10.8)
[2024-02-03 21:56] LABS: Chloride 106 mmol/L (98-107); Potassium 4.4 mmoL/L (3.5-5.1); Sodium 140 mmol/L (136-145)
[2024-02-03 21:59] LABS: Alanine Aminotransferase 46 U/L (12-78); Albumin Level 4.3 g/dl (3.5-5.0); Albumin/Globulin Ratio 1.3 (1.1-1.8); Alkaline Phosphatase 70 U/L (38-126); Anion Gap 9.4 mEq/L (5-15); Aspartate Amino Transferase 37 U/L (17-59); Bilirubin,Total 0.5 mg/dl (0.2-1.3); Blood Urea Nitrogen 20 mg/dl (9-20); Calcium 9.3 mg/dl (8.4-10.2); Carbon Dioxide 29 mmol/L (22.0-30.0); Creatinine Clearance Estimated 125 mL/min (50-200); Estimated Glomerular Filt Rate 70 ml/min (>60); GFR (African American) 85 ML/MIN (>60); Globulin 3.2 g/dL (1.3-3.2); Glucose 112 mg/dl (74-100); Lipase 154 U/L (23-300); Total Protein,Serum 7.5 g/dl (6.3-8.2)
[2024-02-03 22:12] LABS: Troponin I < 0.01 ng/ml (0.00-0.034)
[2024-02-03 22:21] VITALS: BP 110/62; PULSE 62; RESP 15; TEMP 36.4; O2SAT 100
--- NOTE | 2024-02-03 22:46 | CT_ITS ---
PROCEDURE INFORMATION: Exam: CT Abdomen And Pelvis With Contrast Exam date and time: 02/03/2024 11:05 PM Age: 53 years old Clinical indication: Abdominal pain; Localized; Right upper quadrant (ruq); Additional info: Ruq pain to back TECHNIQUE: Imaging protocol: Computed tomography of the abdomen and pelvis with contrast. Total images: 325 Radiation optimization: All CT scans at this facility use at least one of these dose optimization techniques: automated exposure control; mA and/or kV adjustment per patient size (includes targeted exams where dose is matched to clinical indication); or iterative reconstruction. Contrast material: ISOVUE; Contrast volume: 100 ml; Contrast route: IV; COMPARISON: CT PELVIS WO CON 11/19/2022 12:46 AM FINDINGS: Liver: Focal fatty infiltration near the falciform ligament. Otherwise, unremarkable liver. Gallbladder and biliary ducts: Normal. No calcified stones. No ductal dilation. Pancreas: Normal. No ductal dilation. Spleen: Calcified splenic granuloma. No splenomegaly. Adrenal glands: Normal. No mass. Kidneys and ureters: No hydronephrosis, nephrolithiasis, or renal mass. Tiny subcentimeter right renal cortical hypodensities are too small to characterize but statistically cysts requiring no strict follow-up. No ureteral stones. Stomach and bowel: Collapsed stomach. Unremarkable duodenum. No ileus or bowel obstruction. Unremarkable small bowel. Unremarkable terminal ileum. Mild sigmoid diverticulosis without diverticulitis. Unremarkable rectum. Appendix: Normal appendix. Intraperitoneal space: Unremarkable. No free air. No significant fluid collection. Vasculature: Mild atherosclerotic vascular disease. The abdominal aorta is normal in caliber. Major abdominal vessels enhance appropriately. Lymph nodes: Unremarkable. No enlarged lymph nodes. Urinary bladder: Partially collapsed bladder. Reproductive: Nonenlarged prostate Bones/joints: Moderate degenerative changes lumbar spine. Remote AVN bilateral femoral heads. Mild degenerative changes bilateral hips and SI joints. No acute osseous abnormality. Soft tissues: Tiny fat containing umbilical hernia. IMPRESSION: 1. No acute intra-abdominal or pelvic process. 2. Stable chronic and incidental findings. COMMENTS: Consistent with the [employer]'s Incidental Findings Committee white paper (J Am Sunil Radiol 2018): Any incidental renal lesion less than 1 cm or classified as too small to characterize, or any incidental cystic renal lesion characterized as simple-appearing, is likely benign. No follow-up imaging is recommended for these lesions per consensus recommendations based on imaging criteria.
--- NOTE | 2024-02-03 22:46 | CT_ITS ---
PROCEDURE INFORMATION: Exam: CTA Chest With Contrast Exam date and time: 02/03/2024 11:05 PM Age: 53 years old Clinical indication: Pain; Angina pectoris and chest pressure; Additional info: Cp to back, recent swollen L leg TECHNIQUE: Imaging protocol: Computed tomographic angiography of the chest with contrast. Exam focused on the arteries. 3D rendering (Not supervised by radiologist): MIP and/or 3D reconstructed images were created by the technologist. Total images: 760 Radiation optimization: All CT scans at this facility use at least one of these dose optimization techniques: automated exposure control; mA and/or kV adjustment per patient size (includes targeted exams where dose is matched to clinical indication); or iterative reconstruction. Contrast material: ISOVUE 370; Contrast volume: 100 ml; Contrast route: INTRAVENOUS (IV); COMPARISON: CT ANGIO CHEST PE PROTOCOL 06/13/2021 8:28 PM FINDINGS: Pulmonary arteries: Adequate contrast opacification of the pulmonary arteries. Main pulmonary artery is normal in caliber. No acute pulmonary emboli. Aorta: Mildly atherosclerotic thoracic aorta without aneurysm or dissection. Cardiac pulsation artifact in the ascending aorta. Lungs: The trachea and main bronchi are patent. Calcified left lower lobe granuloma. Lungs are clear and well expanded. Minor scarring posterior right lung base and inferior lingula. No airspace consolidation or acute infiltrate. No pulmonary mass or concerning lung nodules. Pleural spaces: Unremarkable. No pneumothorax. No pleural effusion. Heart: Normal heart size. No pericardial effusion. Coronary arteries: Severe coronary artery calcifications. Mediastinal space: No mediastinal mass or fluid collection. Lymph nodes: No mediastinal or hilar lymphadenopathy. Calcified left hilar and subcarinal lymph nodes compatible with remote granulomatous disease. Bones/joints: Numerous remote bilateral rib fracture deformities. Moderate degenerative changes thoracic spine with mild increased thoracic kyphosis. Soft tissues: Mild bilateral gynecomastia. IMPRESSION: 1. No acute intrathoracic process. Specifically, no acute pulmonary emboli. 2. Clear lungs. 3. Severe coronary artery calcifications. 4. Mild bilateral gynecomastia. 5. Remote calcified granulomatous disease. 6. Numerous remote bilateral rib fracture deformities.
--- NOTE | 2024-02-03 22:47 | ED_ITS ---
Discharge Plan Disposition Patient Disposition: Home, Self-Care Prescriptions Prescriptions: No Action nicotine 21 mg/24 hr patch 24 hour 1 patch TRANSDERMA DAILY Qty: 28 6RF nitroglycerin 0.4 mg tablet, sublingual 0.4 mg SUBLINGUAL Q5MINP PRN (Reason: Chest Pain) Qty: 30 5RF pantoprazole 40 mg tablet,delayed release (DR/EC) 40 mg PO DAILY Qty: 90 3RF rosuvastatin 40 mg tablet 40 mg PO DAILY Qty: 90 3RF Vraylar 1.5 mg capsule 1.5 mg PO DAILY Qty: 30 3RF prednisone 20 mg tablet 20 mg PO BID 5 Days Qty: 10 0RF naproxen 500 mg tablet 500 mg PO BID Qty: 30 0RF clonazepam [Klonopin] 1 mg tablet 1 mg PO TID PRN (Reason: anxiety) Qty: 90 3RF ergocalciferol (vitamin D2) 1,250 mcg (50,000 unit) capsule See Rx Instructions .ROUTE .COMPLEX Qty: 12 5RF Dose Instruction: TAKE ONE CAPSULE BY MOUTH ONCE a WEEK Rx Instructions: TAKE ONE CAPSULE BY MOUTH ONCE a WEEK desloratadine 5 mg tablet See Rx Instructions .ROUTE .COMPLEX Qty: 30 5RF Dose Instruction: TAKE ONE TABLET BY MOUTH EVERY DAY Rx Instructions: TAKE ONE TABLET BY MOUTH EVERY DAY albuterol sulfate [Ventolin HFA] 90 mcg/actuation HFA aerosol inhaler See Rx Instructions .ROUTE .COMPLEX Qty: 18 12RF Dose Instruction: INHALE TWO PUFFS BY MOUTH FOUR TIMES DAILY NEEDED FOR SHORTNESS OF BREATH OR wheezing Rx Instructions: INHALE TWO PUFFS BY MOUTH FOUR TIMES DAILY NEEDED FOR SHORTNESS OF BREATH OR wheezing Anoro Ellipta 62.5-25 mcg/actuation blister with device See Rx Instructions .ROUTE .COMPLEX Qty: 60 10RF Dose Instruction: INHALE 1 PUFF BY MOUTH EVERY DAY FOR COPD Rx Instructions: INHALE 1 PUFF BY MOUTH EVERY DAY FOR COPD famotidine 20 mg tablet See Rx Instructions .ROUTE .COMPLEX Qty: 30 3RF Dose Instruction: TAKE ONE TABLET BY MOUTH TWICE DAILY Rx Instructions: TAKE ONE TABLET BY MOUTH TWICE DAILY aspirin 81 mg tablet,delayed release (DR/EC) See Rx Instructions .ROUTE .COMPLEX Qty: 100 3RF Dose Instruction: TAKE ONE TABLET BY MOUTH EVERY DAY FOR BLOOD THINNER Rx Instructions: TAKE ONE TABLET BY MOUTH EVERY DAY FOR BLOOD THINNER fluoxetine 20 mg capsule See Rx Instructions .ROUTE .COMPLEX Qty: 90 3RF Dose Instruction: TAKE ONE CAPSULE BY MOUTH EVERY DAY Rx Instructions: TAKE ONE CAPSULE BY MOUTH EVERY DAY losartan 50 mg tablet See Rx Instructions .ROUTE .COMPLEX Qty: 90 3RF Dose Instruction: TAKE ONE TABLET BY MOUTH EVERY DAY Rx Instructions: TAKE ONE TABLET BY MOUTH EVERY DAY diclofenac sodium [Voltaren Arthritis Pain] 1 % gel 2 g topical QID Qty: 100 0RF Rx Instructions: apply to single elbow, wrist or hand; for hand includes palm/fingers/back of hand Referrals Follow up/Referrals: Provider,Referral, MD [Primary Care Provider] - See instructions Activity Restrictions/Add. Instructions Additional Instructions/Restrictions: Please follow-up with your primary care provider. Please return to the emergency department if you develop any new or worsening symptoms or become concerned for your health. Clinical Impressions Clinical Impression: Chest pain, Abdominal pain Discharge ED Provider: Elio Shah [facility] <Puneet Lee MD - Last Filed: 02/03/24 22:54> General Chief Complaint: Chest Pain Stated Complaint: Chest Pain Time Seen by Provider: 02/03/24 21:45 Mode of Arrival: Ambulatory Source of Information: Patient Limitations: No Limitations Description of Symptoms (Recalled from ER Triage Doc. by RN): Pt ambulatory to ED with complaints of 7/10, constant, aching upper abd/chest pain that started approx 2 hours ago when he was lying down. pt reports the pain started in his RUQ and radiates into LUQ, chest, and between shoulder blades. Pt reports dizziness as well. Pt took advil w/o adequate relief. Pt reports hx anxiety, depression, htn, and 4 cardiac stents. History of Present Illness HPI narrative: Patient is a 53-year-old male with past medical history of 4 cardiac stents, COPD, atypical chest pain, hyperlipidemia who presents emergency department for evaluation multiple complaints. Originally he had epigastric and right upper quadrant pain without vomiting that radiated through to his back, since then he has developed midsternal chest pain that radiates to his back. Onset was acute, approximately 3-4 hours prior to arrival. He has had intermittent left knee swelling before and noticed that his left knee was swollen this morning however it has improved as the day has gone on. No other acute complaints at this time. Related Data Previous Rx's Medication Instructions Recorded nicotine 21 mg/24 hr daily 1 patch transdermal DAILY #28 ea 11/16/21 transdermal patch nitroglycerin 0.4 mg sublingual 0.4 mg sublingual Q5MINP PRN Chest 11/16/21 tablet Pain ##30 ergocalciferol (vitamin D2) 1,250 See Rx Instructions .Route 06/27/22 mcg (50,000 unit) capsule .COMPLEX #12 caps diclofenac sodium 1 % topical gel 2 g topical QID #100 grams 11/19/22 (Voltaren Arthritis Pain) desloratadine 5 mg tablet See Rx Instructions .Route 12/01/22 .COMPLEX #30 tabs pantoprazole 40 mg tablet,delayed 40 mg PO DAILY #90 tabs 05/09/23 release rosuvastatin 40 mg tablet 40 mg PO DAILY #90 tabs 05/09/23 albuterol sulfate 90 mcg/actuation See Rx Instructions .Route 11/06/23 aerosol inhaler (Ventolin HFA) .COMPLEX #18 grams famotidine 20 mg tablet See Rx Instructions .Route 11/10/23 .COMPLEX #30 tabs umeclidinium 62.5 mcg-vilanterol See Rx Instructions .Route 11/10/23 25 mcg/actuation powdr for .COMPLEX #60 blisters inhalation (Anoro Ellipta) aspirin 81 mg tablet,delayed See Rx Instructions .Route 12/06/23 release .COMPLEX #100 tabs fluoxetine 20 mg capsule See Rx Instructions .Route 12/06/23 .COMPLEX #90 caps losartan 50 mg tablet See Rx Instructions .Route 12/06/23 .COMPLEX #90 tabs cariprazine 1.5 mg capsule 1.5 mg PO DAILY #30 caps 01/31/24 (Vraylar) naproxen 500 mg tablet 500 mg PO BID #30 tabs 01/31/24 prednisone 20 mg tablet 20 mg PO BID 5 days #10 tabs 01/31/24 clonazepam 1 mg tablet (Klonopin) 1 mg PO TID PRN anxiety #90 tabs 02/01/24 Allergies Allergy/AdvReac Type Severity Reaction Status Date / Time No Known Allergies Allergy Verified 02/01/24 11:14 [facility] <Puneet Lee MD - Last Filed: 02/03/24 22:54> [facility] Disclaimer: The information contained in this section may have been updated after the patient was seen, as this information can be updated by other users. 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 current occupational exposures/hazards: No caffeine: Yes <Puneet Lee MD - Last Filed: 02/03/24 22:54> ROS Obtained: Yes Systems reviewed as appropriate & no additional complaints except as documented Physical Exam <Puneet Lee MD - Last Filed: 02/03/24 22:54> General General appearance: alert and in no apparent distress Head Head exam: atraumatic and normocephalic Eye Eye exam: Present PERRL ENT ENT exam: Present mucous membranes moist Neck Neck exam: Present normal inspection Chest Chest inspection: Present normal inspection and symmetric chest wall rise Respiratory Respiratory exam: Present normal lung sounds bilaterally; Absent respiratory distress Cardiovascular Cardiovascular exam: Present regular rate and normal rhythm Abdominal Exam Abdominal exam: Present soft and tenderness (Epigastric and right upper quadrant); Absent guarding or rebound Extremities Exam Extremities exam: Present normal inspection Neurological Exam Neurological exam: Present alert Psychiatric Psychiatric exam: Present normal affect Skin Skin exam: Present warm and dry HEART Score <Puneet Lee MD - Last Filed: 02/03/24 22:54> HEART Score HEART Score assessment performed?: Yes History (anamnesis): Highly suspicious ECG: Normal Age: 45-65 years Risk factors: Atherosclerosis history Troponin: </= normal limit HEART Score: 5 <Elio Shah MD - Last Filed: 02/04/24 02:30> HEART Score HEART Score: 5 Critical Care <Puneet Lee MD - Last Filed: 02/03/24 22:54> Critical Care Time Critical Care Time: No Medical Decision Making <Puneet Lee MD - Last Filed: 02/03/24 22:54> Gerson Villanueva Pt receiving controlled substance: No Vital Signs Vital Signs: 02/03/24 21:44 02/03/24 22:21 Temperature 98.2 F 98.4 F Temperature Source Oral Oral Pulse Rate 61 Pulse Rate [Left Radial] 63 Respiratory Rate 15 18 Blood Pressure 114/85 Blood Pressure [Right Arm] 142/77 H Blood Pressure Mean [Right Arm] 98 Blood Pressure Source Automatic Cuff Blood Pressure Source [Right Arm] Automatic Cuff Blood Pressure Position Sitting Blood Pressure Position [Right Arm] Sitting 02 Sat by Pulse Oximetry 100 Oxygen Delivery Method Room Air Room Air Lab Data Labs: Lab Results 02/03/24 21:40: WBC 10.5, RBC 4.91, Hgb 14.8, Hct 45.4, MCV 92.5, MCH 30.2, MCHC 32.6, RDW 15.2, Plt Count 276, MPV 8.5, Neut % (Auto) 52.0, Lymph % (Auto) 36.0, [place] % (Auto) 5.1, Eos % (Auto) 5.1, Baso % (Auto) 1.8, Neut # (Auto) 5.4, Lymph # (Auto) 3.8, [place] # (Auto) 0.5, Eos # (Auto) 0.5 H, Baso # (Auto) 0.2, Sodium 140, Potassium 4.4, Chloride 106, Carbon Dioxide 29, Anion Gap 9.4, BUN 20, Creatinine 1.10, Estimated Creat Clear 125, Estimated GFR 70, Est GFR ( Amer) 85, Glucose 112 H, Calcium 9.3, Total Bilirubin 0.5, AST 37, ALT 46, Alkaline Phosphatase 70, Troponin I < 0.01, Total Protein 7.5, Albumin 4.3, Globulin 3.2, Albumin/Globulin Ratio 1.3, Lipase 154 02/04/24 00:24: Troponin I < 0.01 02/03/24 21:40 02/03/24 21:40 Response Orders (Tests/Meds): ED MEDICATIONS Generic Name Dose Route Start Last Admin Trade Name Freq PRN Reason Stop Dose Admin Nitroglycerin 0.4 mg 02/03/24 22:50 Nitroglycerin 0.4mg Sl Tablet SL 03/04/24 22:49 Q5MINP PRN Chest Pain Discontinued Medications Generic Name Dose Route Start Last Admin Trade Name Jayjay PRN Reason Stop Dose Admin Acetaminophen 1,000 mg 02/04/24 02:24 Acetaminophen 500mg Tab PO 02/04/24 02:25 ONCE ONE Aspirin 324 mg 02/03/24 22:50 02/03/24 23:09 Aspirin 81mg Chewable Tablet PO 02/03/24 22:51 324 mg ONCE ONE Administration Iopamidol 100 ml 02/03/24 23:18 02/03/24 23:19 Iopamidol-370 (76%);100ml Bottle IV 02/03/24 23:19 100 ml ONCE ONE Administration Morphine Sulfate 4 mg 02/03/24 22:52 02/03/24 23:09 Morphine 4mg/Ml Syringe IV 02/03/24 22:53 4 mg ONCE ONE Administration Ondansetron HCl 4 mg 02/03/24 22:53 02/03/24 23:10 Ondansetron 4mg/2ml Vial IV 02/03/24 22:54 4 mg ONCE ONE Administration Sodium Chloride 50 ml 02/03/24 23:18 02/03/24 23:19 0.9 % Sodium Chloride 50 Ml Vial IV 02/03/24 23:19 50 ml ONCE ONE Administration ORDERS Category Date Time Status CT abdomen pelvis w con Stat Cat Scan 02/03/24 22:[address] angio chest - dissection Stat Cat Scan 02/03/24 22:46 Completed CXR 2 view (NOT portable) [XR chest 2V] Stat Exams 02/03/24 21:45 Completed Complete Blood Count Auto Diff Stat Lab 02/03/24 21:40 Completed Comprehensive Metabolic Panel Stat Lab 02/03/24 21:40 Completed Lipase Stat Lab 02/03/24 21:40 Completed Troponin I Q3H Lab 02/04/24 04:30 Ordered Troponin I Q3H Lab 02/04/24 07:30 Ordered Troponin I Stat Lab 02/03/24 21:40 Completed Troponin I Stat Lab 02/04/24 00:24 Completed ECG Data Tracing #1: ECG Narrative: Independently interpreted by me rate is 60, rhythm is regular, axis is normal, no ST elevation in anatomical contiguous leads, QTc 394. MDM Narrative Medical Decision Narrative: In summary patient is a 53-year-old male with past medical history described above who presents emergency department for evaluation of chest pain and abdominal pain. Patient is hemodynamically stable nontoxic-appearing upon arrival, afebrile. Differential diagnosis includes aortic dissection, ACS, cholecystitis, pancreatic abnormality, among others. Workup will be conducted with hematologic labs, chest x-ray, EKG, troponins, CTA chest, CT abdomen pelvis IV contrast. Initial interventions include morphine, aspirin, Zofran, nitroglycerin. Initial workup reviewed by me, hematologic labs are nonactionable, initial troponin undetectably low. Lipase within normal limits. No transaminitis. CT imaging and repeat evaluation as well as second opponent pending at time of transfer of care to the oncoming physician, Dr. Shah. <Elio Shah MD - Last Filed: 02/04/24 02:30> Vital Signs Vital Signs: 02/03/24 21:44 02/03/24 22:21 Temperature 98.2 F 98.4 F Temperature Source Oral Oral Pulse Rate 61 Pulse Rate [Left Radial] 63 Respiratory Rate 15 18 Blood Pressure 114/85 Blood Pressure [Right Arm] 142/77 H Blood Pressure Mean [Right Arm] 98 Blood Pressure Source Automatic Cuff Blood Pressure Source [Right Arm] Automatic Cuff Blood Pressure Position Sitting Blood Pressure Position [Right Arm] Sitting 02 Sat by Pulse Oximetry 100 Oxygen Delivery Method Room Air Room Air Lab Data Labs: Lab Results 02/03/24 21:40: WBC 10.5, RBC 4.91, Hgb 14.8, Hct 45.4, MCV 92.5, MCH 30.2, MCHC 32.6, RDW 15.2, Plt Count 276, MPV 8.5, Neut % (Auto) 52.0, Lymph % (Auto) 36.0, [place] % (Auto) 5.1, Eos % (Auto) 5.1, Baso % (Auto) 1.8, Neut # (Auto) 5.4, Lymph # (Auto) 3.8, [place] # (Auto) 0.5, Eos # (Auto) 0.5 H, Baso # (Auto) 0.2, Sodium 140, Potassium 4.4, Chloride 106, Carbon Dioxide 29, Anion Gap 9.4, BUN 20, Creatinine 1.10, Estimated Creat Clear 125, Estimated GFR 70, Est GFR ( Amer) 85, Glucose 112 H, Calcium 9.3, Total Bilirubin 0.5, AST 37, ALT 46, Alkaline Phosphatase 70, Troponin I < 0.01, Total Protein 7.5, Albumin 4.3, Globulin 3.2, Albumin/Globulin Ratio 1.3, Lipase 154 02/04/24 00:24: Troponin I < 0.01 Response Orders (Tests/Meds): ED MEDICATIONS Generic Name Dose Route Start Last Admin Trade Name Freq PRN Reason Stop Dose Admin Nitroglycerin 0.4 mg 02/03/24 22:50 Nitroglycerin 0.4mg Sl Tablet SL 03/04/24 22:49 Q5MINP PRN Chest Pain Discontinued Medications Generic Name Dose Route Start Last Admin Trade Name Freq PRN Reason Stop Dose Admin Acetaminophen 1,000 mg 02/04/24 02:24 Acetaminophen 500mg Tab PO 02/04/24 02:25 ONCE ONE Aspirin 324 mg 02/03/24 22:50 02/03/24 23:09 Aspirin 81mg Chewable Tablet PO 02/03/24 22:51 324 mg ONCE ONE Administration Iopamidol 100 ml 02/03/24 23:18 02/03/24 23:19 Iopamidol-370 (76%);100ml Bottle IV 02/03/24 23:19 100 ml ONCE ONE Administration Morphine Sulfate 4 mg 02/03/24 22:52 02/03/24 23:09 Morphine 4mg/Ml Syringe IV 02/03/24 22:53 4 mg ONCE ONE Administration Ondansetron HCl 4 mg 02/03/24 22:53 02/03/24 23:10 Ondansetron 4mg/2ml Vial IV 02/03/24 22:54 4 mg ONCE ONE Administration Sodium Chloride 50 ml 02/03/24 23:18 02/03/24 23:19 0.9 % Sodium Chloride 50 Ml Vial IV 02/03/24 23:19 50 ml ONCE ONE Administration ORDERS Category Date Time Status CT abdomen pelvis w con Stat Cat Scan 02/03/24 22:[address] angio chest - dissection Stat Cat Scan 02/03/24 22:46 Completed CXR 2 view (NOT portable) [XR chest 2V] Stat Exams 02/03/24 21:45 Completed Complete Blood Count Auto Diff Stat Lab 02/03/24 21:40 Completed Comprehensive Metabolic Panel Stat Lab 02/03/24 21:40 Completed Lipase Stat Lab 02/03/24 21:40 Completed Troponin I Q3H Lab 02/04/24 04:30 Ordered Troponin I Q3H Lab 02/04/24 07:30 Ordered Troponin I Stat Lab 02/03/24 21:40 Completed Troponin I Stat Lab 02/04/24 00:24 Completed MDM Narrative Medical Decision Narrative: In summary patient is a 53-year-old male with past medical history described above who presents emergency department for evaluation of chest pain and abdominal pain. Patient is hemodynamically stable nontoxic-appearing upon arrival, afebrile. Differential diagnosis includes aortic dissection, ACS, cholecystitis, pancreatic abnormality, among others. Workup will be conducted with hematologic labs, chest x-ray, EKG, troponins, CTA chest, CT abdomen pelvis IV contrast. Initial interventions include morphine, aspirin, Zofran, nitroglycerin. Initial workup reviewed by me, hematologic labs are nonactionable, initial troponin undetectably low. Lipase within normal limits. No transaminitis. CT imaging and repeat evaluation as well as second troponin pending at time of transfer of care to the oncoming physician, Dr. Shah. Pablo RODRIGUEZ: I assumed care of the patient at the time of handoff from the prior provider. On reassessment, patient reports that he still has a little bit of right upper quadrant pain, but significantly improved. Denies any chest pain or epigastric pain or shortness of breath. CT of the chest shows no evidence of aortic pathology or pulmonary emboli on my interpretation. CT of the abdomen shows no evidence of acute cholecystitis or other emergent pathology. Repeat troponin remains undetectably low. Interim discussion was had with patient regarding his presentation and workup. Patient discharged stable condition with return precautions.
[2024-02-03] MEDS: MORPHINE 4MG/ML SYRINGE 4 MG IV (23:09)
[2024-02-03] MEDS: ASPIRIN 81MG CHEWABLE TABLET 324 MG PO (23:09)
[2024-02-03] MEDS: ONDANSETRON 4MG/2ML VIAL 4 MG IV (23:10)
[2024-02-03] MEDS: 0.9 % SODIUM CHLORIDE 50 ML VIAL IV (23:19)
[2024-02-03] MEDS: IOPAMIDOL-370 (76%);100ML BOTTLE 100 ML IV (23:19)
--- NOTE | 2024-02-03 23:51 | PC.NURSE ---
rounded on pt at this time pt voices no needs
--- NOTE | 2024-02-04 01:44 | PC.NURSE ---
rounded on pt at this time. pt given 2 starrys and assisted to bathroom. pt voices no other needs.
[2024-02-04 01:49] LABS: Troponin I < 0.01 ng/ml (0.00-0.034)
[2024-02-04] MEDS: ACETAMINOPHEN 500MG TAB 1000 MG PO (02:31)
== END 2024-02-04 02:36 | disposition home or self-care (01) ==
PROVIDERS: Emergency Medicine; Emergency Provider Emergency Medicine
DX: R07.9 Chest pain, unspecified (principal); R10.13 Epigastric pain; J44.9 Chronic obstructive pulmonary disease, unspecified; F17.210 Nicotine dependence, cigarettes, uncomplicated; I10 Essential (primary) hypertension
CPT/HCPCS: 71046; 71275; 74177; 80053; 83690; 84484; 85025; 93005; 96374; 96375; 99285; J2270; J2405; Q9967

== ENCOUNTER 2024-04-16 07:56 | Day surgery (SDC) | payer OTHER, SELFPAY ==
[2024-04-16] VITALS (13 sets, daily range): BP systolic 115–142; BP diastolic 70–87; PULSE 60–95; RESP 17–20; O2SAT 96–100; BMI 36.1
--- NOTE | 2024-04-16 07:16 | IR_ITS ---
APPROVED REPORT Patient Location: Outpatient Safety Instructor: ADRIENNE Gillette RT (R), Loco Diaz RT(R) PROCEDURES Left heart catheterization Left ventriculogram Selective coronary angiogram Drug-eluting stent deployment to the circumflex arteries first obtuse marginal artery INDICATION Coronary artery disease, Angina pectoris, Abnormal Myoview, Informed consent was obtained prior to the procedure. COMPLICATIONS none Estimated Blood Loss: less than 10 mls TECHNIQUE One percent lidocaine used to anesthetize the right anterior aspect of the wrist. The right radial artery was accessed via the Seldinger technique. A 6 Swedish sheath was placed in the right radial artery. 2.5 mg of Verapamil, 800 mcg of nitroglycerin, 1mg Lidocaine and 5000 U Heparin were given through the arterial sheath. The papa catheter was also used to perform left heart catheterization, left ventriculogram and selective coronary angiogram. At the end the diagnostic angiogram therapeutic Was administered giving a therapeutic ACT and the guide catheter was placed in left main artery followed by Choice PT extra-support wire placed into the first obtuse marginal artery. A 2.75 x 30 mm [place] frontier stent was deployed at 18 tameka reducing the severe stenosis to 0%. BRITTNEY-3 flow was present before and after the procedure. At the end the procedure the apparatus was removed the sheath was removed and hemostasis was achieved using TR banding patient was transferred to the postop putting in stable condition ANGIOGRAPHIC RESULTS The left main artery Normal The left anterior descending artery Has stents in the proximal segment which are widely patent free of in-stent restenosis with excellent proximal and distal transitioning into the midportion of the LAD. There is an additional mid vessel eccentric 40 to 50% stenosis. The circumflex artery Is dominant and has a large first obtuse marginal artery which has a proximal 40% followed by mid vessel concentric 70% stenosis The right coronary artery Nondominant has a stent in the midportion which is widely patent with minimal in-stent restenosis and excellent proximal distal transitioning The WILSON ventriculogram reveals Normal 65% The left ventricular end-diastolic pressure 20 mmHg IMPRESSION Moderate to severe stenosis in a large obtuse marginal artery with successful stenting reducing lesion to 0% with 1 drug-eluting stent Widely patent stents in the proximal to mid LAD as described above Widely patent stent in the mid nondominant right coronary as described above Normal ejection fraction Mildly elevated LVEDP PLAN 1. Dual antiplatelet therapy 2. Cardiac rehabilitation 3. Avoidance of tobacco products 4. Risk factor modification 5. Recommend sleep study Electronically signed by : Vincent Lee MD 04/16/2024 11:18:46
[2024-04-16 08:26] LABS: Chloride 101 mmol/L (98-107); Potassium 4.2 mmoL/L (3.5-5.1); Sodium 138 mmol/L (136-145)
[2024-04-16 08:29] LABS: Anion Gap 10.2 mEq/L (5-15); Blood Urea Nitrogen 18 mg/dl (9-20); Calcium 9.5 mg/dl (8.4-10.2); Carbon Dioxide 31 mmol/L (22.0-30.0); Creatinine Clearance Estimated 126 mL/min (50-200); Estimated Glomerular Filt Rate 70 ml/min (>60); GFR (African American) 85 ML/MIN (>60); Glucose 115 mg/dl (74-100)
[2024-04-16 08:45] LABS: Basophils # 0.1 K/mm3 (0-0.2); Basophils % 1.4 % (0.1-2.0); Eosinophils # 0.6 K/mm3 (0.0-0.4); Eosinophils % 6.9 % (0.1-12.0); Hematocrit 43.3 % (42.0-52.0); Hemoglobin 14.3 g/dL (14.1-18.0); Lymphocytes # 2.5 K/mm3 (0.7-4.5); Lymphocytes % 29.2 % (10-50); Mean Corpuscular Volume 93.8 fl (80-94); Mean Platelet Volume 8.7 fl (7.4-10.4); Monocytes # 0.5 K/mm3 (0.1-1.0); Monocytes % 5.2 % (1.7-9.3); Neutrophils % 57.3 % (37.0-80.0); Platelet Count 213 K/mm3 (142-424); Red Blood Count 4.61 M/mm3 (4.60-6.20); Red Cell Distribution Width 14.6 % (11.5-17.5); White Blood Count 8.6 K/mm3 (4.8-10.8)
[2024-04-16] MEDS: VERAPAMIL 2.5MG/ML 2ML VIAL 2.5 MG IV (09:37)
[2024-04-16] MEDS: HEPARIN 1,000 UNITS/ML 10ML VIAL (CATH LAB) 10000 UNIT IV ×2 (09:37→10:15)
[2024-04-16] MEDS: HEPARIN 1,000 UNITS/500ML NS (CATH LAB) 3000 UNIT IV (09:37)
[2024-04-16] MEDS: NITROGLYCERIN 800MCG/8ML SYR (CATH LAB) 800 MCG IA (09:38)
[2024-04-16] MEDS: LIDOCAINE 1% 10ML MDV 20 ML IJ (09:38)
[2024-04-16] MEDS: 0.9 % SODIUM CHLORIDE 500 ML 25 ML IV (09:38)
[2024-04-16] MEDS: FENTANYL 100MCG/2ML VIAL 50 MCG IV (10:09)
[2024-04-16] MEDS: MIDAZOLAM HCL 1MG/1ML 5ML VIAL 1 MG IV (10:09)
[2024-04-16] MEDS: PRASUGREL 10MG TAB 60 MG PO (10:23)
[2024-04-16] MEDS: IOPAMIDOL-370 (76%);100ML BOTTLE 85 ML IV (10:39)
[2024-04-16 10:46] LABS: CATHL Activated Clotting Time 367 SEC (74-125)
[2024-04-16] MEDS: diphenhydrAMINE 50MG/ML VIAL 50 MG IV (11:46)
== END 2024-04-16 13:48 | disposition home or self-care (01) ==
PROVIDERS: PCP Family Medicine; Visit Provider Internal Medicine
DX: I25.118 Atherosclerotic heart disease of native coronary artery with other forms of angina pectoris (principal); R93.1 Abnormal findings on diagnostic imaging of heart and coronary circulation; R06.00 Dyspnea, unspecified; R07.89 Other chest pain; F17.210 Nicotine dependence, cigarettes, uncomplicated; Z79.899 Other long term (current) drug therapy; Z95.5 Presence of coronary angioplasty implant and graft; I10 Essential (primary) hypertension
CPT/HCPCS: 80048; 85025; 85347; 92928; 93458; 99152; C1725; C1769; C1874; C9600; J1200; J1644; J2250; J3010; Q9967

== ENCOUNTER 2024-04-19 09:16 | Outpatient (CLI) | payer OTHER, SELFPAY ==
[2024-04-19 09:53] LABS: Basophils # 0.1 K/mm3 (0-0.2); Eosinophils # 0.5 K/mm3 (0.0-0.4); Eosinophils % 5.9 % (0.1-12.0); Hematocrit 44.9 % (42.0-52.0); Hemoglobin 14.4 g/dL (14.1-18.0); Lymphocytes # 2.3 K/mm3 (0.7-4.5); Lymphocytes % 27.8 % (10-50); Mean Corpuscular HGB Conc 32.1 g/dL (31.8-35.4); Mean Corpuscular Hemoglobin 30.2 pg (27.0-31.2); Mean Corpuscular Volume 94.2 fl (80-94); Mean Platelet Volume 7.2 fl (7.4-10.4); Monocytes # 0.5 K/mm3 (0.1-1.0); Monocytes % 5.5 % (1.7-9.3); Neutrophils % 59.7 % (37.0-80.0); Platelet Count 207 K/mm3 (142-424); Red Blood Count 4.77 M/mm3 (4.60-6.20); Red Cell Distribution Width 14.2 % (11.5-17.5); White Blood Count 8.4 K/mm3 (4.8-10.8)
[2024-04-19 10:33] LABS: Blood Urea Nitrogen 20 mg/dl (9-20); Calcium 9.4 mg/dl (8.4-10.2); Carbon Dioxide 32 mmol/L (22.0-30.0); Chloride 104 mmol/L (98-107); Estimated Glomerular Filt Rate 78 ml/min (>60); GFR (African American) 95 ML/MIN (>60); Glucose 100 mg/dl (74-100); Sodium 137 mmol/L (136-145)
[2024-04-19 10:59] LABS: Anion Gap 5.4 mEq/L (5-15); Potassium 4.4 mmoL/L (3.5-5.1)
== END 2024-04-19 23:59 | disposition home or self-care (01) ==
LOC: LAB 09:17
PROVIDERS: PCP Family Medicine; Visit Provider Internal Medicine
DX: I25.10 Atherosclerotic heart disease of native coronary artery without angina pectoris (principal); Z72.0 Tobacco use
CPT/HCPCS: 36415; 80048; 85025

== ENCOUNTER 2024-04-29 10:48 | Outpatient (RCR) | payer OTHER, SELFPAY | END 2024-04-29 23:59 | disposition home or self-care (01) | LOC: PT 10:48 | PROVIDERS: Visit Provider Internal Medicine | DX: Z95.5 Presence of coronary angioplasty implant and graft (principal) ==

== ENCOUNTER 2024-05-06 10:03 | Outpatient (CLI) | payer OTHER, SELFPAY ==
[2024-05-06 18:27] LABS: Adenovirus,PCR Not Detected (NotDetected); Bordetella Pertussis Not Detected (NotDetected); Chlamydophila Pneumoniae, PCR Not Detected (NotDetected); Coronavirus 19, PCR Not Detected (NotDetected); Coronavirus 229E Not Detected (NotDetected); Coronavirus NL63 Not Detected (NotDetected); Coronavirus OC43 Not Detected (NotDetected); Coronovirus HKU1,PCR Not Detected (NotDetected); Human Metapneumovirus Not Detected (NotDetected); Influenza A, PCR Not Detected (NotDetected); Influenza AH1, 2009 Not Detected (NotDetected); Influenza AH1, PCR Not Detected (NotDetected); Influenza AH3,PCR Not Detected (NotDetected); Influenza B, PCR Not Detected (NotDetected); Mycoplasma Pneumoniae, PCR Not Detected (NotDetected); Parainfluenza 1, PCR Not Detected (NotDetected); Parainfluenza 2, PCR Not Detected (NotDetected); Parainfluenza 3, PCR Not Detected (NotDetected); Parainfluenza 4, PCR Not Detected (NotDetected); Respiratory Syncytial Virus Not Detected (NotDetected)
[2024-05-06 23:42] LABS: Rhinovirus/Enterovirus Detected (NotDetected)
== END 2024-05-06 23:59 | disposition home or self-care (01) ==
LOC: LAB.DROPOF 05-07 10:03
PROVIDERS: PCP Family Medicine; Visit Provider Family Medicine
DX: R05.9 Cough, unspecified (principal); B97.10 Unspecified enterovirus as the cause of diseases classified elsewhere
CPT/HCPCS: 87265; 87486; 87581; 87632; 87635

== ENCOUNTER 2024-05-25 20:11 | Emergency (ER) | payer OTHER, SELFPAY ==
[2024-05-25 20:13] VITALS: BP 128/73; PULSE 68; RESP 18; TEMP 36.6; O2SAT 97; BMI 36.8
--- NOTE | 2024-05-25 20:25 | XR_ITS ---
PROCEDURE INFORMATION: Exam: XR Right Ankle Exam date and time: 05/25/2024 8:28 PM Age: 54 years old Clinical indication: Injury or trauma; Fall; Blunt trauma; Ankle; Right; Additional info: Twisted ankle, significant swelling and bruising TECHNIQUE: Imaging protocol: Radiologic exam of the right ankle. Views: 3 or more views. COMPARISON: CR XR ANKLE RT MIN 3V 05/25/2024 8:28 PM FINDINGS: Bones/joints: No acute fracture or malalignment. Soft tissues: Distal leg and ankle soft tissue swelling. IMPRESSION: 1. No acute osseous findings. 2. Distal leg and ankle soft tissue swelling.
--- NOTE | 2024-05-25 20:25 | XR_ITS ---
PROCEDURE INFORMATION: Exam: XR Right Tibia and Fibula Exam date and time: 05/25/2024 8:28 PM Age: 54 years old Clinical indication: Injury or trauma; Fall; Blunt trauma; Lower leg; Right; Additional info: Injury mid watters, rule out bone involvement TECHNIQUE: Imaging protocol: Radiologic exam of the right tibia and fibula. Views: 2 views. COMPARISON: CR XR ANKLE RT MIN 3V 05/25/2024 8:28 PM FINDINGS: Bones/joints: No acute fracture or malalignment. Soft tissues: Mid to distal leg soft tissue swelling. IMPRESSION: 1. No acute osseous findings. 2. Mid to distal leg soft tissue swelling.
--- NOTE | 2024-05-25 20:30 | ED_ITS ---
Discharge Plan Disposition Patient Disposition: Home, Self-Care Condition: Good Prescriptions Prescriptions: New cephalexin 500 mg capsule 1,000 mg PO BID 7 Days Qty: 28 0RF No Action diclofenac sodium [Voltaren Arthritis Pain] 1 % gel 2 g topical QID Qty: 100 12RF Rx Instructions: apply to single elbow, wrist or hand; for hand includes palm/fingers/back of hand hydrocodone-acetaminophen 7.5-325 mg tablet 1 tab PO DAILY PRN (Reason: pain) Qty: 15 0RF clonazepam [Klonopin] 1 mg tablet 1 mg PO TID PRN (Reason: anxiety) Qty: 90 3RF metoprolol succinate [Toprol XL] 25 mg tablet extended release 24 hr 25 mg PO DAILY Qty: 30 5RF levomefolate calcium [L-Methylfolate] 15 mg tablet 15 mg PO DAILY Qty: 30 2RF nicotine 21-14-7 mg/24 hr patch, TD daily, sequential 1 patch transdermal Q24H Qty: 42 0RF fluoxetine [Prozac] 20 mg capsule 20 mg PO DAILY Qty: 90 3RF methylprednisolone [Medrol (Oscar)] 4 mg tablets,dose pack See Rx Instructions PO PER PKG DIR Qty: 21 0RF Rx Instructions: PO PER PKG DIR ergocalciferol (vitamin D2) 1,250 mcg (50,000 unit) capsule See Rx Instructions .ROUTE .COMPLEX Qty: 12 5RF Dose Instruction: TAKE ONE CAPSULE BY MOUTH ONCE a WEEK Rx Instructions: TAKE ONE CAPSULE BY MOUTH ONCE a WEEK desloratadine 5 mg tablet See Rx Instructions .ROUTE .COMPLEX Qty: 30 5RF Dose Instruction: TAKE ONE TABLET BY MOUTH EVERY DAY Rx Instructions: TAKE ONE TABLET BY MOUTH EVERY DAY albuterol sulfate [Ventolin HFA] 90 mcg/actuation HFA aerosol inhaler See Rx Instructions .ROUTE .COMPLEX Qty: 18 12RF Dose Instruction: INHALE TWO PUFFS BY MOUTH FOUR TIMES DAILY NEEDED FOR SHORTNESS OF BREATH OR wheezing Rx Instructions: INHALE TWO PUFFS BY MOUTH FOUR TIMES DAILY NEEDED FOR SHORTNESS OF BREATH OR wheezing Anoro Ellipta 62.5-25 mcg/actuation blister with device See Rx Instructions .ROUTE .COMPLEX Qty: 60 10RF Dose Instruction: INHALE 1 PUFF BY MOUTH EVERY DAY FOR COPD Rx Instructions: INHALE 1 PUFF BY MOUTH EVERY DAY FOR COPD aspirin 81 mg tablet,delayed release (DR/EC) See Rx Instructions .ROUTE .COMPLEX Qty: 100 3RF Dose Instruction: TAKE ONE TABLET BY MOUTH EVERY DAY FOR BLOOD THINNER Rx Instructions: TAKE ONE TABLET BY MOUTH EVERY DAY FOR BLOOD THINNER losartan 50 mg tablet See Rx Instructions .ROUTE .COMPLEX Qty: 90 3RF Dose Instruction: TAKE ONE TABLET BY MOUTH EVERY DAY Rx Instructions: TAKE ONE TABLET BY MOUTH EVERY DAY nitroglycerin 0.4 mg tablet, sublingual See Rx Instructions .ROUTE .COMPLEX Qty: 25 1RF Dose Instruction: DISSOLVE 1 TABLET UNDER THE TONGUE EVERY 5 MINUTES NEEDED FOR CHEST PAIN. DO NOT EXCEED A TOTAL OF 3 DOSES IN 15 MINUTES. IF NO RELIEF AFTER 3 DOSES CALL 911/GO TO ER Rx Instructions: DISSOLVE 1 TABLET UNDER THE TONGUE EVERY 5 MINUTES NEEDED FOR CHEST PAIN. DO NOT EXCEED A TOTAL OF 3 DOSES IN 15 MINUTES. IF NO RELIEF AFTER 3 DOSES CALL 911/GO TO ER famotidine 20 mg tablet See Rx Instructions .ROUTE .COMPLEX Qty: 30 3RF Dose Instruction: TAKE ONE TABLET BY MOUTH TWICE DAILY Rx Instructions: TAKE ONE TABLET BY MOUTH TWICE DAILY pantoprazole 40 mg tablet,delayed release (DR/EC) 40 mg PO DAILY Qty: 90 3RF rosuvastatin 40 mg tablet 40 mg PO DAILY Qty: 90 3RF benzonatate 200 mg capsule 200 mg PO TID PRN (Reason: cough) Qty: 30 0RF dextromethorphan-guaifenesin 60-1,200 mg tablet extended release 12 hr 1 tab PO Q12H Qty: 60 0RF prasugrel [Effient] 10 mg Tablet 10 mg PO DAILY 30 Days Qty: 30 6RF Referrals Follow up/Referrals: Chema Clark MD [Primary Care Provider] - See instructions Activity Restrictions/Add. Instructions Additional Instructions/Restrictions: Call your family doctor to establish care for this visit to the emergency department and schedule follow-up within 48 hours to ensure improvement. If you have any worsening of your condition or any other concerning signs or symptoms, return to the emergency department or your primary care doctor for further evaluation. Keflex twice daily for 7 days Clinical Impressions Clinical Impression: Cellulitis of leg, right Print Language Print Language: [place] Discharge ED Provider: Alejandro Mckeon General Adult [facility] General Chief complaint: Extremity Injury, Lower Stated complaint: right leg pain and swollen Time Seen by Provider: 05/25/24 20:15 Mode of Arrival: Ambulatory Source of Information: Patient Limitations: No Limitations Description of Symptoms (Recalled from ER Triage Doc. by RN): Patient hit his right leg on his tractor 1 week ago. Leg is swollen now. States he thinks his tetanus is up to date, that he received his last shot here. History of Present Illness HPI narrative: Please note that above description of symptoms, in this electronic medical recor d under categorization of recalled from ER triage doctor by RN are reflective of an initial nursing assessment, however, is not reflective of my full history and physical exam that was personally taken and clarified. Consequentially, this preceding description of symptoms, which may include the patient's categorized chief complaint in the EMR, do not reflect my personal clinical impression, and the ultimate description of history of present illness and patient stated complaints should be deferred to this section of the note. Unless stated otherwise or congruent with this section of the note, additional signs, symptoms, or incongruence should be interpreted as inaccurate with my clinical impression. Related Data Previous Rx's ?Medication ?Instructions ?Recorded ergocalciferol (vitamin D2) 1,250 See Rx Instructions .Route 06/27/22 mcg (50,000 unit) capsule .COMPLEX #12 caps desloratadine 5 mg tablet See Rx Instructions .Route 12/01/22 .COMPLEX #30 tabs albuterol sulfate 90 mcg/actuation See Rx Instructions .Route 11/06/23 aerosol inhaler (Ventolin HFA) .COMPLEX #18 grams umeclidinium 62.5 mcg-vilanterol See Rx Instructions .Route 11/10/23 25 mcg/actuation powdr for .COMPLEX #60 blisters inhalation (Anoro Ellipta) aspirin 81 mg tablet,delayed See Rx Instructions .Route 12/06/23 release .COMPLEX #100 tabs losartan 50 mg tablet See Rx Instructions .Route 12/06/23 .COMPLEX #90 tabs clonazepam 1 mg tablet (Klonopin) 1 mg PO TID PRN anxiety #90 tabs 02/01/24 diclofenac sodium 1 % topical gel 2 g topical QID #100 grams 02/21/24 (Voltaren Arthritis Pain) metoprolol succinate 25 mg 25 mg PO DAILY #30 tabs 03/13/24 tablet,extended release 24 hr (Toprol XL) nitroglycerin 0.4 mg sublingual See Rx Instructions .Route 03/13/24 tablet .COMPLEX #25 tabs hydrocodone 7.5 mg-acetaminophen 1 tab PO DAILY PRN pain #15 tabs 03/25/24 325 mg tablet levomefolate calcium 15 mg tablet 15 mg PO DAILY #30 tabs 03/25/24 (L-Methylfolate) prasugrel 10 mg tablet (Effient) 10 mg PO DAILY 30 days #30 tabs 04/16/24 famotidine 20 mg tablet See Rx Instructions .Route 04/22/24 .COMPLEX #30 tabs pantoprazole 40 mg tablet,delayed 40 mg PO DAILY #90 tabs 04/26/24 release rosuvastatin 40 mg tablet 40 mg PO DAILY #90 tabs 04/26/24 nicotine 1 patch transdermal Q24H #42 04/30/24 21mg/24hr-14mg/24hr-7mg/24hr daily patches transderm patches,sequentl fluoxetine 20 mg capsule (Prozac) 20 mg PO DAILY #90 caps 05/06/24 methylprednisolone 4 mg tablets in See Rx Instructions PO PER PKG DIR 05/06/24 a dose pack (Medrol (Oscar)) #21 tabs benzonatate 200 mg capsule 200 mg PO TID PRN cough #30 caps 05/08/24 dextromethorphan-guaifenesin ER 60 1 tab PO Q12H #60 tabs 05/08/24 mg-1,200 mg tab,extend release,12hr cephalexin 500 mg capsule 1,000 mg (2 x 500 mg) PO BID 7 05/25/24 days #28 caps Allergies Allergy/AdvReac Type Severity Reaction Status Date / Time No Known Allergies Allergy Verified 05/06/24 10:31 [facility] Disclaimer: The information contained in this section may have been updated after the patient was seen, as this information can be updated by other users. Medical History Insomnia Daytime somnolence MEGHNA (obstructive sleep apnea) Abnormal findings on diagnostic imaging of heart and coronary circulation Typical angina Abdominal pain Gastroesophageal reflux disease Sore throat Left lower lobe pneumonia Tobacco abuse Surgical History Hx of heart artery stent Mid and Prox LAD 06-18-22 and Mid and Prox RCA 07-31-22 Family History Other No significant family history Social History Smoking Status: Current every day smoker tobacco type: cigarettes packs per day: 2 second hand exposure: No alcohol intake: current alcohol intake frequency: holidays/special occasions only substance use type: denies use current occupational status: employed Travel in the last 8 weeks: None household members: spouse housing: house 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 current occupational exposures/hazards: No caffeine: Yes Other Medical History Have you received the Flu Vaccine for this season: No Have you received the Pneumonia Vaccine: No ROS Obtained: Yes All systems reviewed & no additional complaints except as documented Physical Exam General General appearance: alert Head Head exam: atraumatic and normocephalic Eye Eye exam: Present normal appearance, PERRL and EOMI Neck Neck exam: Present normal inspection, full ROM and trachea midline Respiratory Respiratory exam: Absent respiratory distress, wheezes, stridor, accessory muscle use or prolonged expiratory phase Cardiovascular Cardiovascular exam: Present other (Pulses equal symmetric in upper and lower extremities) Abdominal Exam Abdominal exam: Present soft; Absent distention, tenderness or pulsatile mass Extremities Exam Extremities exam: Present edema and other (Per MDM) Neurological Exam Neurological exam: Present alert, oriented X3 and CN II-XII intact; Absent motor sensory deficit Skin Skin exam: Present warm and dry; Absent diaphoresis or erythema Medical Decision Making Medical Records Medical records reviewed: Yes I reviewed the patient's medical records. Screening: Per USPSTF and CDC recommendations, given the prevalence of disease in our region, it is our hospital?s policy to screen for HIV and viral Hepatitis for all patients aged 18 and over and those with ongoing risk factors. Gerson Inquiry Pt receiving controlled substance: No Gerson was queried for this patient: No Vital Signs: 05/25/24 20:13 05/25/24 20:31 05/25/24 20:45 Temperature 97.9 F Temperature Source Oral Pulse Rate 68 61 Pulse Rate [Right Radial] 68 Respiratory Rate 18 Blood Pressure 116/67 Blood Pressure [Right Arm] 128/73 Blood Pressure Mean [Right Arm] 91 Blood Pressure Source [Right Arm] Automatic Cuff Blood Pressure Position [Right Arm] Supine 02 Sat by Pulse Oximetry 97 94 L 95 Oxygen Delivery Method Room Air Orders (Tests/Meds): ED MEDICATIONS Discontinued Medications Generic Name Dose Route Start Last Admin Trade Name Jayjay PRN Reason Stop Dose Admin Acetaminophen 1,000 mg 05/25/24 20:25 05/25/24 20:33 Acetaminophen 500mg Tab PO 05/25/24 20:26 1,000 mg ONCE ONE Administration Cephalexin HCl 1,000 mg 05/25/24 20:54 05/25/24 20:57 Cephalexin 500mg Capsule PO 05/25/24 20:55 1,000 mg ONCE ONE Administration Ibuprofen 600 mg 05/25/24 20:25 05/25/24 20:32 Ibuprofen 600 Mg Tablet PO 05/25/24 20:26 600 mg ONCE ONE Administration ORDERS Category Date Time Status Ankle XR -Right minimum 3 Views [XR ankle RT min 3V] Exams 05/25/24 20:25 Taken Stat Fibula/tibia XR right 2 views [XR tibia fibula RT 2V] Exams 05/25/24 20:25 Taken Stat POCUS Point of Care (ER Only) Stat Exams 05/25/24 20:27 Ordered Medical Decision Narrative: 54-year-old male with history of hypertension, hyperlipidemia, CAD status post stenting, COPD with tobacco use disorder not on home oxygen, obesity, MEGHNA presenting with injury to his right lower extremity. Patient states he hit his right watters on his tractor a week prior to this. Tetanus is up-to-date. Denies any other trauma, but states that his right lower extremity is swelling, tender, primarily in anterior watters and around his ankle. No other trauma was sustained. States that he had a has bruising around his ankle as well. Able to ambulate without issue, no fevers, chills, posterior pain, numbness, weakness, or any other concerns. Patient states that the pain is mild in intensity, took ibuprofen earlier today, unsure if it helped or not. History was obtained via conversation with patient. On arrival, patient hemodynamically stable, alert, oriented x4, appropriate, GCS 15, moving all extremities spontaneously, pupils equal and reactive to light. Full physical exam performed and significant for obese, chronically ill male, but no acute distress. Right lower extremity with 2 cm well-healing laceration over anterior watters. No evidence of crepitus. He does have bilateral lower extremity edema, right mildly worse than left. Associated erythema on anterior watters and the soft tissues as well with scattered and resolved bruising on watters and down in foot near calcaneus. Neurovascularly intact. Compartments are soft, no pain with passive or active range of motion. Differential includes routine healing, abrasion, cellulitis, abscess, avulsion fracture, sprain, strain, DVT, among others. Patient was given Tylenol Motrin p.o. for symptomatic management and correction of underlying abnormalities. Hematologic workup was considered, but not deemed necessary. Patient has no systemic signs or symptoms, minimal redness, otherwise well-appearing. On independent interpretation of imaging, no acute bony abnormality of the ankle or tib-fib. See radiology read for full review of final results. Bedside [id number] ultrasound performed and this demonstrated soft tissue edema, but no evidence of DVT. On reevaluation, patient resting comfortably, given first dose of Keflex 1 g. Given patient presentation, workup, history, this most likely represents minor soft tissue injury with resulting cellulitis. Conversation had with patient regarding picking up some compression stockings that go from his foot up to his knee to help with lower extremity edema, he voiced his understanding. Because patient at baseline without signs or symptoms of clinical decompensation, deemed appropriate for discharge. Results were relayed to patient who voiced understanding and were agreeable to outpatient management and follow up. I discussed my clinical impression with patient and answered all questions. At this time, the evidence for any other entities in the differential is insufficient to warrant any further testing or ED observation. This was explained as well. Advisory was given that persistent or worsening symptoms require further evaluation. I confirmed the understanding of this discussion. Top Printing Press Operator disclaimer Much of this encounter note is an electronic clinical assistant spoken language to printed text. Electronic clinical assistant of the spoken language may permit errors. Although I have reviewed the note, some errors may still exist. Procedures Limited Ultrasound Indication:: Limited DVT ultrasound Indication: Limited compression ultrasonography of the right lower extremity was performed to evaluate for non-compressibility of the deep veins in the patient. The ultrasound was performed with the following indications, as noted in the H&P: Right lower extremity swelling and redness Identified structures: Right popliteal veins, calf veins, greater saphenous vein Findings: Right Popliteal vein: Good compressibility Right calf veins: Good compressibility Saphenous vein: Good compressibility Impression: Nonactionable right lower extremity DVT ultrasound. Patient does have soft tissue edema consistent with cellulitis as well as dependent edema Images were saved to permanent archive The study was technically adequate CPT: 08213-66-UL [id number] (complete bilateral study) This study was performed by me, and I personally interpreted all images/videos. Based on my clinical judgement, these images were adequate and did not necessi contreras further imaging Critical Care Critical Care Time Critical Care Time: No
[2024-05-25 20:31] VITALS: BP 116/67; PULSE 68; O2SAT 94
[2024-05-25] MEDS: IBUPROFEN 600 MG TABLET PO (20:32)
[2024-05-25] MEDS: ACETAMINOPHEN 500MG TAB 1000 MG PO (20:33)
[2024-05-25 20:45] VITALS: PULSE 61; O2SAT 95
[2024-05-25] MEDS: cephALEXin 500MG CAPSULE 1000 MG PO (20:57)
[2024-05-25 21:08] VITALS: BP 114/72; PULSE 68; RESP 18; TEMP 36.6; O2SAT 98
== END 2024-05-25 21:13 | disposition home or self-care (01) ==
PROVIDERS: Emergency Provider Emergency Medicine; PCP Family Medicine
DX: M79.604 Pain in right leg (principal); L03.115 Cellulitis of right lower limb
CPT/HCPCS: 73590; 73610; 99283

== ENCOUNTER 2024-07-25 09:50 | Outpatient (CLI) | payer OTHER, SELFPAY ==
[2024-07-25 10:41] LABS: Basophils # 0.1 K/mm3 (0-0.2); Basophils % 1.7 % (0.1-2.0); Eosinophils # 0.7 K/mm3 (0.0-0.4); Eosinophils % 9.4 % (0.1-12.0); Hematocrit 43.8 % (42.0-52.0); Hemoglobin 14.1 g/dL (14.1-18.0); Lymphocytes # 2.2 K/mm3 (0.7-4.5); Mean Corpuscular HGB Conc 32.2 g/dL (31.8-35.4); Mean Corpuscular Hemoglobin 28.8 pg (27.0-31.2); Mean Corpuscular Volume 89.4 fl (80-94); Mean Platelet Volume 9.8 fl (7.4-10.4); Monocytes # 0.4 K/mm3 (0.1-1.0); Monocytes % 4.5 % (1.7-9.3); Neutrophils # 4.4 K/mm3 (1.8-7.8); Neutrophils % 56.1 % (37.0-80.0); Platelet Count 232 K/mm3 (142-424); Red Cell Distribution Width 13.5 % (11.5-17.5); White Blood Count 7.8 K/mm3 (4.8-10.8)
[2024-07-25 11:11] LABS: Albumin Level 4.4 g/dl (3.5-5.0)
[2024-07-25 11:12] LABS: Chloride 103 mmol/L (98-107); Potassium 4.8 mmoL/L (3.5-5.1); Sodium 140 mmol/L (136-145)
[2024-07-25 11:14] LABS: Bilirubin,Unconjugated 0.3 mg/dL (0.0-1.1); Blood Urea Nitrogen 18 mg/dl (9-20); Estimated Glomerular Filt Rate 78 ml/min (>60); GFR (African American) 94 ML/MIN (>60)
[2024-07-25 11:15] LABS: Alanine Aminotransferase 31 U/L (12-78); Alkaline Phosphatase 73 U/L (38-126); Anion Gap 11.8 mEq/L (5-15); Aspartate Amino Transferase 33 U/L (17-59); Bilirubin,Direct 0.3 mg/dl (0.0-0.4); Bilirubin,Indirect 0.2 mg/dL (0.0-0.9); Bilirubin,Total 0.5 mg/dl (0.2-1.3); Calcium 9.3 mg/dl (8.4-10.2); Carbon Dioxide 30 mmol/L (22.0-30.0); Chol/HDL Ratio 3.4 (1-3.5); Cholesterol 131 mg/dl (140-200); Glucose 120 mg/dl (74-100); HDL Cholesterol 38 mg/dl (40-60); Magnesium 2.1 mg/dl (1.6-2.3); Total Protein,Serum 6.8 g/dl (6.3-8.2); Triglycerides 129 mg/dl (30-150); VLDL Cholesterol 26 mg/dL (0-40)
[2024-07-25 11:26] LABS: Direct LDL Cholesterol 65.63 mg/dL (100-129)
[2024-07-25 11:35] LABS: Free T4 (Free Thyroxine) 0.93 ng/dl (0.78-2.19)
[2024-07-25 11:43] LABS: Thyroid Stimulating Hormone 0.91 uIU/mL (0.465-4.68)
== END 2024-07-25 23:59 | disposition home or self-care (01) ==
LOC: LAB 09:51
PROVIDERS: PCP Family Medicine; Visit Provider Physician Assistant
DX: E78.2 Mixed hyperlipidemia (principal); I25.118 Atherosclerotic heart disease of native coronary artery with other forms of angina pectoris; K21.00 Gastro-esophageal reflux disease with esophagitis, without bleeding; I10 Essential (primary) hypertension; R07.89 Other chest pain; F17.209 Nicotine dependence, unspecified, with unspecified nicotine-induced disorders; R06.00 Dyspnea, unspecified; Z95.5 Presence of coronary angioplasty implant and graft
CPT/HCPCS: 36415; 80048; 80061; 80076; 83735; 84439; 84443; 85025

== ENCOUNTER 2025-01-31 11:09 | Outpatient (CLI) | payer OTHER, SELFPAY ==
[2025-01-31 15:54] LABS: Anion Gap 9.6 mEq/L (5-15); Blood Urea Nitrogen 11 mg/dl (9-20); Carbon Dioxide 29 mmol/L (22.0-30.0); Chloride 104 mmol/L (98-107); Creatinine,Serum 1.00 mg/dl (0.66-1.25); Estimated Glomerular Filt Rate 78 ml/min (>60); Potassium 4.6 mmoL/L (3.5-5.1); Sodium 138 mmol/L (136-145)
[2025-01-31 15:55] LABS: Alanine Aminotransferase 27 U/L (12-78); Albumin Level 4.0 g/dl (3.5-5.0); Albumin/Globulin Ratio 1.7 (1.1-1.8); Alkaline Phosphatase 77 U/L (38-126); Aspartate Amino Transferase 26 U/L (17-59); Bilirubin,Total 0.5 mg/dl (0.2-1.3); Calcium 9.1 mg/dl (8.4-10.2); Cholesterol 130 mg/dl (140-200); GFR (African American) 94 ML/MIN (>60); Globulin 2.4 g/dL (1.3-3.2); Glucose 123 mg/dl (74-100); HDL Cholesterol 32 mg/dl (40-60); Total Protein,Serum 6.4 g/dl (6.3-8.2); Triglycerides 285 mg/dl (30-150)
[2025-01-31 16:42] LABS: Hepatitis C Ab Qual. W/ RFX NEGATIVE (Negative)
[2025-02-01 09:12] LABS: Hepatitis B Surface Antigen Negative (Negative)
--- OUTSIDE RECORDS SUMMARY | 2025-02-03 10:17 | XMS_ITS | Clinical Summary ---
Author Organization [facility] Address [address] [place] [address] Phone Care Team Providers Care Radiation Oncologist Name Role Phone Unavailable Primary Care Provider Unavailabl e Allergies No known active allergies Medications * This document contains information received from the source organization and may not represent a complete record from that organization. oxyCODONE-acetam inophen (PERCOCET) 5-325 mg Oral Tablet Take 1 Tab by mouth every 4 hours as needed for Pain for up to 30 doses. 30 Tab 10/16/2016 Active Medical History Medical History Date Comments Hypertension Hyperlipidemia Anxiety Social History Tobacco Use Types Packs/Day Years Used Date Smoking Tobacco: Every Day Alcohol Use Standard Drinks/Week Comments No 0 (1 standard drink = 0.6 oz pur e alcohol) Sex and Gender Information Value Date Recorded Sex Assigned at Not on file Legal Sex Male 12:06 PM EDT Gender Identity Not on file Sexual Orientation Not on file Obstetrics History Last Filed Vital Signs Vital Sign Reading Time Taken Comments Blood Pressure 107/65 10/16/2016 5:58 PM EDT Pulse 75 10/16/2016 5:58 PM EDT Temperature 36.5 C (97.7 F) 10/16/2016 2:28 PM EDT Respiratory Rate 16 10/16/2016 5:06 PM EDT Oxygen Saturation 100% 10/16/2016 2:28 PM EDT Inhaled Oxygen Concentration - - Weight 121.6 kg (268 lb) 10/16/2016 2:28 PM EDT Height 177.8 cm (5' 10 ) 10/16/2016 2:28 PM EDT Body Mass Index 38.45 10/16/2016 2:28 PM EDT Plan of Treatment Health Maintenance Due Date Last Done Comments Annual Wellness Exam 1973 DTaP/TDaP/Td (1 - Tdap) 1989 Hepatitis B Vaccine (1 of 3 - 19+ 3-dose series) 1989 Cologuard 2015 Colon Cancer Screening 2015 Colonoscopy 2015 FIT 2015 Sigmoidoscopy 2015 Virtual Colonography 2015 Pneumococcal Vaccine 50+ (1 of 1 - PCV) 2020 Zoster (1 of 2) 2020 COVID-19 Vaccine (1 - 2023-2 5 season) 2024 Influenza Vaccine (#1) 2025 Meningococcal B Vaccine Aged Out No l onger eligible based on patient's age to complete this topic
== END 2025-01-31 23:59 | disposition home or self-care (01) ==
LOC: LAB.DROPOF 02-03 10:07
PROVIDERS: PCP Family Medicine; Visit Provider Family Medicine
DX: G47.00 Insomnia, unspecified (principal); Z11.59 Encounter for screening for other viral diseases; R53.83 Other fatigue; E78.2 Mixed hyperlipidemia; I10 Essential (primary) hypertension; E66.9 Obesity, unspecified; Z12.5 Encounter for screening for malignant neoplasm of prostate
CPT/HCPCS: 80053; 80061; 80074; 87340; 87389; G0103

== ENCOUNTER 2025-02-22 11:40 | Emergency (ER) | payer OTHER, SELFPAY ==
[2025-02-22] VITALS (7 sets, daily range): BP systolic 109–129; BP diastolic 71–90; PULSE 54–64; RESP 18; TEMP 36.6–37.1; O2SAT 96–99; BMI 38.2
--- OUTSIDE RECORDS SUMMARY | 2025-02-22 11:52 | XMS_ITS | Clinical Summary ---
Author Organization [facility] Address [address] [facility] [facility] [place] [address] Phone Care Team Providers Care Gravel Screener Name Role Phone Unavailable Primary Care Provider [...]
--- NOTE | 2025-02-22 11:59 | CT_ITS ---
PROCEDURE INFORMATION: Exam: CT Abdomen And Pelvis With Contrast Exam date and time: 02/22/2025 12:56 PM Age: 54 years old Clinical indication: Abdominal pain; Additional info: Rlq and flank pain, appendicitis vs kidney stone TECHNIQUE: Imaging protocol: Computed tomography of the abdomen and pelvis with contrast. Radiation optimization: All CT scans at this facility use at least one of these dose optimization techniques: automated exposure control; mA and/or kV adjustment per patient size (includes targeted exams where dose is matched to clinical indication); or iterative reconstruction. Contrast material: ISOVUE; Contrast volume: 75 ml; Contrast route: IV; COMPARISON: CT ABDOMEN PELVIS W CON 02/03/2024 11:05 PM FINDINGS: Lungs: Mild bilateral atelectasis and/or scarring. Calcified left lung base granuloma. Coronary arteries: Coronary artery atherosclerosis. Liver: Mild fatty liver. Gallbladder and biliary ducts: Normal. No calcified stones. No ductal dilation. Pancreas: Normal. No ductal dilation. Spleen: Normal. No splenomegaly. Adrenal glands: Normal. No mass. Kidneys and ureters: Normal. No hydronephrosis. Stomach and bowel: Unchanged positioning of the descending colon in the midline abdomen. No obstruction. No mucosal thickening. Appendix: Appendix not seen; no secondary CT signs of acute appendicitis. Intraperitoneal space: Unremarkable. No free air. No significant fluid collection. Vasculature: Atherosclerosis. Lymph nodes: Unremarkable. No enlarged lymph nodes. Urinary bladder: Unremarkable as visualized. Reproductive: Prostate calcifications. Bones/joints: Old right posterior 9th rib fracture. Degenerative changes of the spine, sacroiliac joints and hips. 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 Soft tissues: Unremarkable. IMPRESSION: 1. No CT evidence of radiopaque urinary tract stones. 2. Appendix not seen; no secondary CT signs of acute appendicitis. 3. Additional chronic/nonemergent findings as detailed above.
--- NOTE | 2025-02-22 11:59 | XR_ITS ---
PROCEDURE INFORMATION: Exam: XR Chest Exam date and time: 02/22/2025 12:18 PM Age: 54 years old Clinical indication: Pain; Chest pressure; Additional info: Intermittent chest pain TECHNIQUE: Imaging protocol: Radiologic exam of the chest. Views: 1 view. COMPARISON: CT ANGIO CHEST 02/03/2024 11:05 PM FINDINGS: Lungs: Unremarkable. No consolidation. Pleural spaces: Unremarkable. No pleural effusion. No pneumothorax. Heart/Mediastinum: Unremarkable. No cardiomegaly. Bones/joints: Unremarkable. IMPRESSION: No acute findings.
--- NOTE | 2025-02-22 12:01 | ECG_ITS ---
APPROVED REPORT Exam: Resting ECG HR:56 bpm ECG Measurements Heart Rate 56 AXES IA 143 P 45 QRSd 100 QRS 76 QT 392 T 31 QTc 384 Conclusion SINUS BRADYCARDIA POSSIBLE INFERIOR MYOCARDIAL INFARCTION , PROBABLY OLD [30 ms Q WAVE IN II/aVF] BORDERLINE ECG UNCONFIRMED REPORT Sinus bradycardia with ventricular rate of [address] elevation or depression. No T wave inversions Electronically signed by : SHAYLA SNOW, 02/23/2025 07:16:52
--- NOTE | 2025-02-22 12:02 | ED_ITS ---
Discharge Plan Disposition Patient Disposition: Home, Self-Care Prescriptions Prescriptions: New gabapentin 100 mg capsule 100 mg PO Q12H PRN (Reason: pain, severe) Qty: 14 0RF methocarbamol 750 mg tablet 750 mg PO Q8H PRN (Reason: muscle pain) Qty: 30 0RF No Action diclofenac sodium [Voltaren Arthritis Pain] 1 % gel 2 g topical QID Qty: 100 12RF Rx Instructions: apply to single elbow, wrist or hand; for hand includes palm/fingers/back of hand hydrocodone-acetaminophen 7.5-325 mg tablet 1 tab PO DAILY PRN (Reason: pain) Qty: 15 0RF ergocalciferol (vitamin D2) 1,250 mcg (50,000 unit) capsule See Rx Instructions .ROUTE .COMPLEX Qty: 12 5RF Dose Instruction: TAKE ONE CAPSULE BY MOUTH ONCE a WEEK Rx Instructions: TAKE ONE CAPSULE BY MOUTH ONCE a WEEK nitroglycerin 0.4 mg tablet, sublingual See Rx Instructions .ROUTE .COMPLEX Qty: 25 1RF Dose Instruction: DISSOLVE 1 TABLET UNDER THE TONGUE EVERY 5 MINUTES NEEDED FOR CHEST PAIN. DO NOT EXCEED A TOTAL OF 3 DOSES IN 15 MINUTES. IF NO RELIEF AFTER 3 DOSES CALL 911/GO TO ER Rx Instructions: DISSOLVE 1 TABLET UNDER THE TONGUE EVERY 5 MINUTES NEEDED FOR CHEST PAIN. DO NOT EXCEED A TOTAL OF 3 DOSES IN 15 MINUTES. IF NO RELIEF AFTER 3 DOSES CALL 911/GO TO ER clonazepam [Klonopin] 1 mg tablet 1 mg PO TID PRN (Reason: anxiety) Qty: 90 0RF fluoxetine [Prozac] 20 mg capsule 20 mg PO DAILY Qty: 90 3RF nicotine 21-14-7 mg/24 hr patch, TD daily, sequential 1 patch transdermal Q24H Qty: 42 0RF desloratadine 5 mg tablet See Rx Instructions .ROUTE .COMPLEX Qty: 30 5RF Dose Instruction: TAKE ONE TABLET BY MOUTH EVERY DAY Rx Instructions: TAKE ONE TABLET BY MOUTH EVERY DAY pantoprazole 40 mg tablet,delayed release (DR/EC) 40 mg PO DAILY Qty: 90 3RF rosuvastatin 40 mg tablet 40 mg PO DAILY Qty: 90 3RF ipratropium-albuterol 0.5 mg-3 mg(2.5 mg base)/3 mL solution for nebulization 3 ml inhalation QID PRN (Reason: shortness of breath) Qty: 180 10RF albuterol sulfate [Ventolin HFA] 90 mcg/actuation HFA aerosol inhaler See Rx Instructions .ROUTE .COMPLEX Qty: 18 12RF Dose Instruction: INHALE TWO PUFFS BY MOUTH FOUR TIMES DAILY NEEDED FOR SHORTNESS OF BREATH OR wheezing Rx Instructions: INHALE TWO PUFFS BY MOUTH FOUR TIMES DAILY NEEDED FOR SHORTNESS OF BREATH OR wheezing Anoro Ellipta 62.5-25 mcg/actuation blister with device See Rx Instructions .ROUTE .COMPLEX Qty: 60 10RF Dose Instruction: INHALE 1 PUFF BY MOUTH EVERY DAY FOR COPD Rx Instructions: INHALE 1 PUFF BY MOUTH EVERY DAY FOR COPD metoprolol succinate [Toprol XL] 25 mg tablet extended release 24 hr 25 mg PO DAILY Qty: 30 5RF prasugrel HCl [Effient] 10 mg tablet 10 mg PO DAILY 30 Days Qty: 30 6RF losartan 50 mg tablet See Rx Instructions .ROUTE .COMPLEX Qty: 30 0RF Dose Instruction: TAKE ONE TABLET BY MOUTH EVERY DAY Rx Instructions: TAKE ONE TABLET BY MOUTH EVERY DAY aspirin 81 mg tablet,delayed release (DR/EC) See Rx Instructions .ROUTE .COMPLEX Qty: 30 0RF Dose Instruction: TAKE ONE TABLET BY MOUTH EVERY DAY FOR BLOOD THINNER Rx Instructions: TAKE ONE TABLET BY MOUTH EVERY DAY FOR BLOOD THINNER famotidine 20 mg tablet See Rx Instructions .ROUTE .COMPLEX Qty: 180 3RF Dose Instruction: TAKE ONE TABLET BY MOUTH TWICE DAILY Rx Instructions: TAKE ONE TABLET BY MOUTH TWICE DAILY Referrals Follow up/Referrals: Chema Clark MD [Primary Care Provider, Family Practice] - See instructions Activity Restrictions/Add. Instructions Additional Instructions/Restrictions: Follow-up with your primary care doctor next week for reassessment if symptoms do not improve. You are being prescribed gabapentin and Robaxin for pain. Take these as prescribed. In addition to this, you can continue take Tylenol, ibuprofen and lidocaine patches. If you develop any new or worsening symptoms, such as weakness in one or both of the legs, numbness in your genital region, difficulty urinating or having a bowel movement or having incontinence, or if you have any worsening of your symptoms or become concerned for your health for any reason, return to the emergency department for evaluation. Clinical Impressions Clinical Impression: Acute right flank pain Instructions Patient Instructions: DI for Low Back Pain Print Language Print Language: Portuguese Discharge ED Provider: Chong Mclaughlin General Adult HPI General Chief complaint: Back Pain/Injury Stated complaint: back pain Time Seen by Provider: 02/22/25 11:49 Mode of Arrival: Ambulatory Source of Information: Patient Limitations: No Limitations History of Present Illness HPI narrative: Roni Lynch is a 54-year-old male with a history of coronary artery stents on aspirin prasugrel, obstructive sleep apnea, GERD, tobacco use who presents to the emergency department for complaints of right flank pain. Patient states that 3 days ago, he developed pain in his right flank that will intermittently radiate up the right lower part of his back and into his right lower abdomen. He states that movements oftentimes worsen the pain. He denies any vomiting or diarrhea. He denies any numbness or tingling, more specifically in the genital area. He denies any difficulty or changes in urinary habits but does state that his urine appears dark. He denies any bowel habit changes. He states that he has not had any fevers. He does report a history of kidney stones and states that this pain feels somewhat similar to that. He denies any pain rating down his leg. Patient does report that he has intermittent left-sided sharp chest pains, however these do appear to show up when patient is having his right-sided abdominal pain. Related Data Previous Rx's ?Medication ?Instructions ?Recorded desloratadine 5 mg tablet See Rx Instructions .Route 0 12/01/22 .COMPLEX #30 tabs diclofenac sodium 1 % topical gel 2 g topical QID #100 grams 02/21/24 (Voltaren Arthritis Pain) hydrocodone 7.5 mg-acetaminophen 1 tab PO DAILY PRN pa in #15 tabs 03/25/24 325 mg tablet pantoprazole 40 mg tablet,delayed 40 mg PO DAILY #90 t abs 04/26/24 release rosuvastatin 40 mg tablet 40 mg PO DAILY #90 tabs 04/16 08/09 ipratropium 0.5 mg-albuterol 3 mg 3 ml inhalation QID PRN shortness 08/09/24 (2.5 mg base)/3 mL nebulization of breath #180 mL soln albuterol sulfate 90 mcg/actuation See Rx Instructions .Route 10/07/24 aerosol inhaler (Ventolin HFA) .COMPLEX #18 grams umeclidinium 62.5 mcg-vilanterol See Rx Instructions . Route 10/21/24 25 mcg/actuation powdr for .COMPLEX #60 blisters inhalation (Anoro Ellipta) metoprolol succinate 25 mg 25 mg PO DAILY #30 tabs 12/08 tablet,extended release 24 hr (Toprol XL) prasugrel HCl 10 mg tablet 10 mg PO DAILY 30 days #30 tabs 12/31/24 (Effient) aspirin 81 mg tablet,delayed See Rx Instructions .Rout e 01/30/25 release .COMPLEX #30 tabs famotidine 20 mg tablet See Rx Instructions .Route 0 01/30/25 .COMPLEX #180 tabs losartan 50 mg tablet See Rx Instructions .Route 0 01/30/25 .COMPLEX #30 tabs clonazepam 1 mg tablet (Klonopin) 1 mg PO TID PRN anxi ety #90 tabs 01/31/25 ergocalciferol (vitamin D2) 1,250 See Rx Instructions .Route 01/31/25 mcg (50,000 unit) capsule .COMPLEX #12 caps fluoxetine 20 mg capsule (Prozac) 20 mg PO DAILY #90 c aps 01/31/25 nicotine 1 patch transdermal Q24H #42 01/31/25 21mg/24hr-14mg/24hr-7mg/24hr daily patches transderm patches,sequentl nitroglycerin 0.4 mg sublingual See Rx Instructions .R oute 01/31/25 tablet .COMPLEX #25 tabs gabapentin 100 mg capsule 100 mg PO Q12H PRN pain, sev ere 02/22/25 #14 caps methocarbamol 750 mg tablet 750 mg PO Q8H PRN muscle p ain #30 02/22/25 tabs Allergies Allergy/AdvReac Type Severity Reaction Status Date / Time No Known Allergies Allergy Verified 01/31/25 09:52 [facility] Disclaimer: The information contained in this section may have been updated after the patient was seen, as this information can be updated by other users. Medical History Insomnia Daytime somnolence MEGHNA (obstructive sleep apnea) Abnormal findings on diagnostic imaging of heart and coronary circulation Typical angina Abdominal pain Gastroesophageal reflux disease Sore throat Left lower lobe pneumonia Tobacco abuse Surgical History Hx of heart artery stent Mid and Prox LAD 12-3-22 and Mid and Prox RCA 07-31-22 Family History Other No significant family history Social History (Updated 01/31/25 @ 09:54 by Mira Villarreal MA) Smoking Status: Current every day smoker tobacco type: cigarettes packs per day: 1 second hand exposure: No alcohol intake: never substance use type: denies use current occupational status: employed and other Travel in the last 8 weeks?: None household members: spouse housing: house 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 current occupational exposures/hazards: No caffeine: Yes Have you lived/traveled outside [place] in past 30 days?: No Contact w/someone who lives/traveled outside US past 30 days?: No Exposure to someone with infectious disease in past 14 days?: No Do you have a fever (greater than 100.4 F or 38 C)?: No Have you tested positive for COVID-19?: No Exposed to someone with COVID-19 in past 14 days?: No Do you have a sore throat?: No Do you have a cough?: No Do you have any weakness?: No Do you have any diarrhea?: No Are you experiencing any unusual bleeding?: No Do you have any muscle aches/pain?: No Do you have any abdominal pain?: No Are you experiencing loss of taste or smell?: No Other Medical History Have you received the Flu Vaccine for this season: No Have you received the Pneumonia Vaccine: No ROS Obtained: Yes Systems reviewed as appropriate & no additional complaints except as documented Physical Exam General General appearance: alert, in no apparent distress and obese Comment: Uncomfortable appearing Head Head exam: atraumatic Eye Eye exam: Present normal appearance ENT ENT exam: Present normal external ear exam Neck Neck exam: Present full ROM Chest Chest inspection: Present symmetric chest wall rise Respiratory Respiratory exam: Present normal lung sounds bilaterally; Absent respiratory distress, wheezes or stridor Cardiovascular Cardiovascular exam: Present regular rate and normal rhythm Abdominal Exam Abdominal exam: Present soft, tenderness (RLQ > RUQ tenderness) and guarding (RLQ); Absent distention exam: Present deferred Extremities Exam Extremities exam: Present normal inspection Back Exam Back exam: Present normal inspection, tenderness (Right lumbar paraspinal area) and CVA tenderness (R); Absent CVA tenderness (L) Neurological Exam Neurological exam: Present alert and oriented X3 Psychiatric Psychiatric exam: Present normal affect Skin Skin exam: Present warm and dry Medical Decision Making Medical Records Screening: Per USPSTF and CDC recommendations, given the prevalence of disease in our region, it is our hospital?s policy to screen for HIV and viral Hepatitis for all patients aged 18 and over and those with ongoing risk factors. Gerson Inquiry Pt receiving controlled substance: Yes Gerson was queried for this patient: Yes Risks and benefits of using a controlled substance: were discussed with pt by me Vital Signs: 02/22/25 11:59 02/22/25 12:16 02/22/25 12:30 Temperature 98 F Temperature Source Oral Pulse Rate 57 L 56 L Pulse Rate [Right] 63 Respiratory Rate 18 Blood Pressure 120/71 119/71 Blood Pressure [Right Arm] 127/90 Blood Pressure Mean Blood Pressure Mean [Right Arm] 102 Blood Pressure Source Blood Pressure Source [Right Arm] Automatic Cuff Blood Pressure Position Blood Pressure Position [Right Arm] Sitting 02 Sat by Pulse Oximetry 99 98 96 Oxygen Delivery Method Room Air Room Air 02/22/25 12:45 02/22/25 13:45 02/22/25 14:00 Temperature Temperature Source Pulse Rate 54 L 55 L 55 L Pulse Rate [Right] Respiratory Rate Blood Pressure 109/73 L 124/79 129/77 Blood Pressure [Right Arm] Blood Pressure Mean 94 96 Blood Pressure Mean [Right Arm] Blood Pressure Source Blood Pressure Source [Right Arm] Blood Pressure Position Blood Pressure Position [Right Arm] 02 Sat by Pulse Oximetry 98 99 99 Oxygen Delivery Method Room Air Room Air 02/22/25 14:20 Temperature 98.7 F Temperature Source Oral Pulse Rate 64 Pulse Rate [Right] Respiratory Rate 18 Blood Pressure 129/82 Blood Pressure [Right Arm] Blood Pressure Mean Blood Pressure Mean [Right Arm] Blood Pressure Source Automatic Cuff Blood Pressure Source [Right Arm] Blood Pressure Position Sitting Blood Pressure Position [Right Arm] 02 Sat by Pulse Oximetry Oxygen Delivery Method Room Air Lab Data Lab Results 02/22/25 12:00: VBG pH 7.33, VBG pCO2 52.7 H, VBG pO2 38.4, VBG HCO3 27.1, VBG Total CO2 28.7 H, VBG O2 Saturation 72.3 H, VBG Base Excess 1.1, VBG Lactic Acid 1.1 02/22/25 12:03: Urine Color Yellow, Urine Appearance Clear, Urine pH 6.0, Ur Specific [place] 1.025, Urine Protein Negative, Urine Glucose (UA) Negative, Urine Ketones Negative, Urine Blood Negative, Urine Nitrate Negative, Urine Bilirubin Negative, Urine Urobilinogen 0.2, Ur Leukocyte Esterase Negative, Urine RBC None, Urine WBC None, Ur Squamous Epith Cells None, Urine Bacteria Trace, Urine Mucus 1+ 02/22/25 12:12: WBC 7.9, RBC 4.62, Hgb 13.4 L, Hct 41.3 L, MCV 89.4, MCH 29.0, MCHC 32.4, RDW 13.7, Plt Count 219, MPV 10.2, Neut % (Auto) 55.3, Lymph % (Auto) 31.2, [place] % (Auto) 4.8, Eos % (Auto) 7.0, Baso % (Auto) 1.3, Neut # (Auto) 4.4, Lymph # (Auto) 2.5, [place] # (Auto) 0.4, Eos # (Auto) 0.6 H, Baso # (Auto) 0.1, Sodium 137, Potassium 4.4, Chloride 105, Carbon Dioxide 28, Anion Gap 8.4, BUN 13, Creatinine 0.80, Estimated Creat Clear 181, Estimated GFR 101, Est GFR ( Amer) 122, Glucose 120 H, Calcium 8.8, Magnesium 2.1, Total Bilirubin 0.4, AST 33, ALT 36, Alkaline Phosphatase 76, Troponin I < 0.01, C-Reactive Protein 1.8, Total Protein 6.8, Albumin 4.2, Globulin 2.6, Albumin/Globulin Ratio 1.6, Lipase 119 02/22/25 12:12 02/22/25 12:12 Orders (Tests/Meds): ED MEDICATIONS Discontinued Medications Generic Name Dose Route Start Last Admin Trade Name Freq PRN Reason Stop Dose Admin Gabapentin 100 mg 02/22/25 14:09 02/22/25 14:24 Gabapentin 100mg Capsule PO 02/22/25 14:10 100 mg ONCE ONE Administration Iopamidol 75 ml 02/22/25 12:54 02/22/25 12:55 Iopamidol-370 (76%);100ml Bottle IV 02/22/25 12:55 75 ml ONCE ONE Administration Morphine Sulfate 4 mg 02/22/25 11:59 02/22/25 12:20 Morphine 4mg/Ml Syringe IV 02/22/25 12:00 4 mg ONCE ONE Administration Sodium Chloride 10 ml 02/22/25 12:54 02/22/25 12:55 Sodium Chloride 0.9% 10ml Syr (Rad Only) IV 02/22/25 12:55 10 ml ONCE ONE Administration ORDERS Category Date Time Status CT abdomen pelvis w con Stat Cat Scan 02/22/25 11:59 Completed CXR --portable [XR chest portable] Stat Exams 02/22/25 11:59 Completed CBC w/Auto Diff [Complete Blood Count Auto Diff] Stat Lab 02/22/25 12:12 Completed CMP [Comprehensive Metabolic Panel] Stat Lab 02/22/25 12:12 Completed CRP [C-Reactive Protein] Stat Lab 02/22/25 12:12 Completed Lipase Stat Lab 02/22/25 12:12 Completed Magnesium Stat Lab 02/22/25 12:12 Completed Troponin I Stat Lab 02/22/25 12:12 Completed UA [Urinalysis and Microscopic] Stat Lab 02/22/25 12:03 Completed VBG [Venous Blood Gas] Stat RT 02/22/25 12:00 Completed ECG Data Tracing #1: I reviewed this ECG and interpreted as documented below: Sinus bradycardia with ventricular rate of [address] elevation or depression. No inverted T waves. QTc normal at 384 Medical Decision Narrative: Roni Lynch is a 54-year-old male with a history of coronary artery stents on aspirin prasugrel, obstructive sleep apnea, GERD, tobacco use who presents to the emergency department for complaints of right flank pain. Patient states that 3 days ago, he developed pain in his right flank that will intermittently radiate up the right lower part of his back and into his right lower abdomen. He states that movements oftentimes worsen the pain. He denies any vomiting or diarrhea. He denies any numbness or tingling, more specifically in the genital area. He denies any difficulty or changes in urinary habits but does state that his urine appears dark. He denies any bowel habit changes. He states that he has not had any fevers. He does report a history of kidney stones and states that this pain feels somewhat similar to that. He denies any pain rating down his leg. Patient does report that he has intermittent left-sided sharp chest pains, however these do appear to show up when patient is having his right-sided abdominal pain. On arrival, patient is normotensive, heart rate within normal limits, afebrile, breathing comfortably room air with appropriate oxygen saturation. Physical exam, as stated above, revealed an uncomfortable appearing male in no respiratory distress. His pain appears to be worsened with movement, such as sitting up. Negative straight leg raise bilaterally. He has tenderness in the right lower quadrant with guarding in this area. Some mild right upper quadrant tenderness. Right-sided CVA tenderness. No rashes are present. Mild right lumbar paraspinal muscle tenderness but no midline tenderness or step- offs. Differential diagnosis includes, but is not limited to: Appendicitis, ureterolithiasis, urinary tract infection/pyelonephritis, femoral hernia, diverticulitis, colitis, acute cholecystitis, among others. The most morbid conditions were considered and workup was based on these. Workup in the emergency department included: CT abdomen pelvis with IV contrast, CBC, CMP, magnesium level, VBG with lactate, troponin, chest x-ray, EKG, urinalysis. Patient was treated with 4 mg of IV morphine for his pain Laboratory studies and urinalysis demonstrated no leukocytosis, mildly low hemoglobin of 13.4 and hematocrit of 41.3 but not significantly off baseline. VBG unremarkable nonactionable with normal lactate. Electrolytes within normal limits. No MANISHA. Glucose 120. Magnesium normal at 2.1. Liver enzymes and bilirubin within normal limits. Troponin less than 0.01. CRP normal at 1.8. Lipase normal at 119. Urinalysis without blood or evidence of infection. CT and x-ray imaging were interpreted by me personally and demonstrated no acute findings within the abdomen or pelvis. No evidence of appendicitis or ureterolithiasis/hydronephrosis. Patient does have an old posterior ninth rib fracture, which she is aware of. He does have evidence of avascular necrosis of the femoral heads that appears chronic. Prostate calcifications. See final radiology report for details. Chest x-ray interpreted by me personally. No pneumothorax, no widening the mediastinum. No focal consolidations. Unremarkable chest x-ray. See radiology report for details. On reassessment, patient remained in stable condition. There were no acute findings on his workup today. Is possible patient has a pulled muscle versus sciatica type pain given location near the buttock. Will administer low-dose gabapentin here in the emergency department and send patient home with course of gabapentin and Robaxin. I did encourage him to continue taking Tylenol and lidocaine patches to help with symptoms. I also encouraged her to follow with his primary care physician for further management. Strict return precautions were given for any red flag symptoms. All questions were answered. He demonstrated understanding and was in agreement this plan. He was then discharged from the emergency department in stable condition. Critical Care Critical Care Time Critical Care Time: No
[2025-02-22 12:07] LABS: Bilirubin,Urine Negative (Negative); Color,Urine YELLOW (Yellow); Glucose,Urine (UA) Negative (Negative); Ketones,Urine Negative (Negative); Leukocyte Esterase,Urine Negative (Negative); Microscopic, Urine URINE MICROSCOPIC (MICROSCOPIC); PH,Urine 6.0 (5.0-8.5); Protein,Urine Negative (Negative); Specific Gravity, Urine 1.025 (1.005-1.030); Urobilinogen,Urine 0.2 EU/dl (0.2)
[2025-02-22] MEDS: MORPHINE 4MG/ML SYRINGE 4 MG IV (12:20)
[2025-02-22 12:23] LABS: Hematocrit 41.3 % (42.0-52.0); Hemoglobin 13.4 g/dL (14.1-18.0); Immature Granulocytes % 0.4 %; Mean Corpuscular HGB Conc 32.4 g/dL (31.8-35.4); Mean Corpuscular Hemoglobin 29.0 pg (27.0-31.2); Mean Corpuscular Volume 89.4 fl (80-94); Nucleated Red Blood Cells % 0 %; Platelet Count 219 K/mm3 (142-424); Red Blood Count 4.62 M/mm3 (4.60-6.20); Red Cell Distribution Width-SD 44.2 fL; White Blood Count 7.9 K/mm3 (4.8-10.8)
[2025-02-22 12:24] LABS: Lactate Venous 1.1 mmol/L (0.4-2.0); VBG HCO3 27.1 mmol/L (23-30); VBG PCO2 52.7 mmol/L (35-51); VBG PH 7.33 mmol/L (7.31-7.41); VBG PO2 38.4 mmol/L (28-40)
[2025-02-22 12:32] LABS: Bacteria,Urine Trace /lpf; Mucus,Urine 1+ /lpf
[2025-02-22 12:38] LABS: Alanine Aminotransferase 36 U/L (12-78); Albumin Level 4.2 g/dl (3.5-5.0); Albumin/Globulin Ratio 1.6 (1.1-1.8); Alkaline Phosphatase 76 U/L (38-126); Anion Gap 8.4 mEq/L (5-15); Aspartate Amino Transferase 33 U/L (17-59); Bilirubin,Total 0.4 mg/dl (0.2-1.3); Blood Urea Nitrogen 13 mg/dl (9-20); Calcium 8.8 mg/dl (8.4-10.2); Carbon Dioxide 28 mmol/L (22.0-30.0); Chloride 105 mmol/L (98-107); Creatinine Clearance Estimated 181 mL/min (50-200); Creatinine,Serum 0.80 mg/dl (0.66-1.25); Estimated Glomerular Filt Rate 101 ml/min (>60); GFR (African American) 122 ML/MIN (>60); Globulin 2.6 g/dL (1.3-3.2); Glucose 120 mg/dl (74-100); Lipase 119 U/L (23-300); Magnesium 2.1 mg/dl (1.6-2.3); Potassium 4.4 mmoL/L (3.5-5.1); Sodium 137 mmol/L (136-145); Total Protein,Serum 6.8 g/dl (6.3-8.2)
[2025-02-22 12:44] LABS: C-Reactive Protein 1.8 mg/L (0-4)
[2025-02-22 12:54] LABS: Troponin I < 0.01 ng/ml (0.00-0.034)
[2025-02-22] MEDS: SODIUM CHLORIDE 0.9% 10ML SYR (RAD ONLY) 10 ML IV (12:55)
[2025-02-22] MEDS: IOPAMIDOL-370 (76%);100ML BOTTLE 75 ML IV (12:55)
[2025-02-22] MEDS: GABAPENTIN 100MG CAPSULE 100 MG PO (14:24)
== END 2025-02-22 14:31 | disposition home or self-care (01) ==
PROVIDERS: Emergency Provider Student in an Organized Health Care Education/Training Program; PCP Family Medicine
DX: R10.31 Right lower quadrant pain (principal); M54.59 Other low back pain; R00.1 Bradycardia, unspecified; F17.210 Nicotine dependence, cigarettes, uncomplicated; Z87.442 Personal history of urinary calculi
CPT/HCPCS: 71045; 74177; 80053; 81001; 82803; 83690; 83735; 84484; 85025; 86140; 93005; 96374; 99285; J2270; Q9967

== ENCOUNTER 2025-03-11 13:22 | Emergency (ER) | payer OTHER, SELFPAY ==
[2025-03-11 13:33] VITALS: BP 110/69; PULSE 64; RESP 16; TEMP 36.6; O2SAT 97; BMI 38.2
--- OUTSIDE RECORDS SUMMARY | 2025-03-11 13:40 | XMS_ITS | Clinical Summary ---
Author Organization [facility] Bah T Address [address] [address] Phone Care Team Providers Care Administrative Support Coordinator Name Role Phone Unavailable Primary Care Provider [...]
--- NOTE | 2025-03-11 14:01 | ED_ITS ---
<Statement entered by Chong Mclaughlin MD - 03/11/25 16:07> I was consulted by the DAMEON, and we discussed the complexity of the problems being addressed. I approve the treatment and management plan for this patient's care in the emergency department, thus performing a substantive portion of the medical decision making. Chong Mclaughlin MD Discharge Plan Disposition Patient Disposition: Home, Self-Care Condition: Good Prescriptions Prescriptions: New methylprednisolone [Medrol (Oscar)] 4 mg tablets,dose pack 4 mg PO DAILY Qty: 21 0RF No Action diclofenac sodium [Voltaren Arthritis Pain] 1 % gel 2 g topical QID Qty: 100 12RF Rx Instructions: apply to single elbow, wrist or hand; for hand includes palm/fingers/back of hand hydrocodone-acetaminophen 7.5-325 mg tablet 1 tab PO DAILY PRN (Reason: pain) Qty: 15 0RF ergocalciferol (vitamin D2) 1,250 mcg (50,000 unit) capsule See Rx Instructions .ROUTE .COMPLEX Qty: 12 5RF Dose Instruction: TAKE ONE CAPSULE BY MOUTH ONCE a WEEK Rx Instructions: TAKE ONE CAPSULE BY MOUTH ONCE a WEEK fluoxetine [Prozac] 20 mg capsule 20 mg PO DAILY Qty: 90 3RF nicotine 21-14-7 mg/24 hr patch, TD daily, sequential 1 patch transdermal Q24H Qty: 42 0RF desloratadine 5 mg tablet See Rx Instructions .ROUTE .COMPLEX Qty: 30 5RF Dose Instruction: TAKE ONE TABLET BY MOUTH EVERY DAY Rx Instructions: TAKE ONE TABLET BY MOUTH EVERY DAY pantoprazole 40 mg tablet,delayed release (DR/EC) 40 mg PO DAILY Qty: 90 3RF rosuvastatin 40 mg tablet 40 mg PO DAILY Qty: 90 3RF ipratropium-albuterol 0.5 mg-3 mg(2.5 mg base)/3 mL solution for nebulization 3 ml inhalation QID PRN (Reason: shortness of breath) Qty: 180 10RF albuterol sulfate [Ventolin HFA] 90 mcg/actuation HFA aerosol inhaler See Rx Instructions .ROUTE .COMPLEX Qty: 18 12RF Dose Instruction: INHALE TWO PUFFS BY MOUTH FOUR TIMES DAILY NEEDED FOR SHORTNESS OF BREATH OR wheezing Rx Instructions: INHALE TWO PUFFS BY MOUTH FOUR TIMES DAILY NEEDED FOR SHORTNESS OF BREATH OR wheezing Anoro Ellipta 62.5-25 mcg/actuation blister with device See Rx Instructions .ROUTE .COMPLEX Qty: 60 10RF Dose Instruction: INHALE 1 PUFF BY MOUTH EVERY DAY FOR COPD Rx Instructions: INHALE 1 PUFF BY MOUTH EVERY DAY FOR COPD metoprolol succinate [Toprol XL] 25 mg tablet extended release 24 hr 25 mg PO DAILY Qty: 30 5RF prasugrel HCl [Effient] 10 mg tablet 10 mg PO DAILY 30 Days Qty: 30 6RF famotidine 20 mg tablet See Rx Instructions .ROUTE .COMPLEX Qty: 180 3RF Dose Instruction: TAKE ONE TABLET BY MOUTH TWICE DAILY Rx Instructions: TAKE ONE TABLET BY MOUTH TWICE DAILY losartan 50 mg tablet See Rx Instructions .ROUTE .COMPLEX Qty: 30 0RF Dose Instruction: TAKE ONE TABLET BY MOUTH EVERY DAY Rx Instructions: TAKE ONE TABLET BY MOUTH EVERY DAY aspirin 81 mg tablet,delayed release (DR/EC) See Rx Instructions .ROUTE .COMPLEX Qty: 30 0RF Dose Instruction: TAKE ONE TABLET BY MOUTH EVERY DAY FOR BLOOD THINNER Rx Instructions: TAKE ONE TABLET BY MOUTH EVERY DAY FOR BLOOD THINNER nitroglycerin 0.4 mg tablet, sublingual See Rx Instructions .ROUTE .COMPLEX Qty: 25 1RF Dose Instruction: DISSOLVE 1 TABLET UNDER THE TONGUE EVERY 5 MINUTES NEEDED FOR CHEST PAIN. DO NOT EXCEED A TOTAL OF 3 DOSES IN 15 MINUTES. IF NO RELIEF AFTER 3 DOSES CALL 911/GO TO ER Rx Instructions: DISSOLVE 1 TABLET UNDER THE TONGUE EVERY 5 MINUTES NEEDED FOR CHEST PAIN. DO NOT EXCEED A TOTAL OF 3 DOSES IN 15 MINUTES. IF NO RELIEF AFTER 3 DOSES CALL 911/GO TO ER clonazepam [Klonopin] 1 mg tablet 1 mg PO TID PRN (Reason: anxiety) Qty: 90 0RF gabapentin 100 mg capsule 100 mg PO Q12H PRN (Reason: pain, severe) Qty: 14 0RF methocarbamol 750 mg tablet 750 mg PO Q8H PRN (Reason: muscle pain) Qty: 30 0RF Referrals Follow up/Referrals: Chema Clark MD [Primary Care Provider, Family Practice] - See instructions Delbert Payne MD [Staff Physician, Pain Management] - See instructions Activity Restrictions/Add. Instructions Additional Instructions/Restrictions: Please follow-up with your PCP for MRI of the lumbar spine, and further pain m anagement, as well as possible physical therapy referral. Please take all your medication as prescribed. Monitor for any worsening signs or symptoms, if experience any worsening pain, any numbness or tingling in your groin area, difficulty using the restroom return to the emergency department. Please follow-up with pain management physician in the upcoming days for more inclusive pain management regimen. Clinical Impressions Clinical Impression: Degenerative disc disease (DDD) of lumbar region with axial back pain without leg pain Instructions Patient Instructions: DI for Low Back Pain, DI for Degenerative Disc Disease, DI for Herniated Disc Print Language Print Language: Yi Discharge ED Provider: Chong Mclaughlin Adult HPI General Chief complaint: Back Pain/Injury Stated complaint: Back Pain Time Seen by Provider: 03/11/25 13:26 Mode of Arrival: Wheelchair Source of Information: Patient Description of Symptoms (Recalled from ER Triage Doc. by RN): Patient states that he has been having lower back pain for well over a month, was seen in our ER for a similar complaint. States it has gotten worse since hitting a bump this morning. Patient states he has not seen PCP. History of Present Illness HPI narrative: 54-year-old male presents the emergency department with left-sided lower back pain, that started this morning when the patient woke up , patient has a history of acute on chronic lumbar spine pain, worsened within the last 2 months , degenerative disc disease of the lumbar spine, has been seen and treated previously for this. Patient [place] any fever chills no trauma or injury per history, patient has any chest pain shortness of breath nausea vomiting constipation diarrhea no abdominal pain no urinary type symptomatology, no saddle anesthesia no urinary bladder or bowel dysfunction, no numbness or tingling, however at times patient states when walking long distances he does experience some numbness and tingling of bilateral lower extremities but no true radicular type symptomatology. Initial triage vitals are grossly u nremarkable, patient has been utilizing ibuprofen and what sounds as methocarbamol muscle relaxer with little to no relief of his symptomatology. Other past medical history is consistent with current everyday smoker denies any other alcohol or drug use, MEGHNA, CAD history of coronary artery stents, TEOFILO/MDD, COPD, hypertension, hyperlipidemia. Please note that above description of symptoms, in this electronic medical record under categorization of recalled from ER triage doctor by RN are reflective of an initial nursing assessment, however, is not reflective of my full history and physical exam that was personally taken and clarified. Consequentially, this preceding description of symptoms, which may include the patient's categorized chief complaint in the EMR, do not reflect my personal clinical impression, and the ultimate description of history of present illness and patient stated complaints should be deferred to this section of the note. Unless stated otherwise or congruent with this section of the note, additional signs, symptoms, or incongruence should be interpreted as inaccurate with my clinical impression. Onset (ago): hour(s) Related Data Previous Rx's ?Medication ?Instructions ?Recorded desloratadine 5 mg tablet See Rx Instructions .Route 0 12/01/22 .COMPLEX #30 tabs diclofenac sodium 1 % topical gel 2 g topical QID #100 grams 02/21/24 (Voltaren Arthritis Pain) hydrocodone 7.5 mg-acetaminophen 1 tab PO DAILY PRN pa in #15 tabs 03/25/24 325 mg tablet pantoprazole 40 mg tablet,delayed 40 mg PO DAILY #90 t abs 04/26/24 release rosuvastatin 40 mg tablet 40 mg PO DAILY #90 tabs 04/16 08/09 ipratropium 0.5 mg-albuterol 3 mg 3 ml inhalation QID PRN shortness 08/09/24 (2.5 mg base)/3 mL nebulization of breath #180 mL soln albuterol sulfate 90 mcg/actuation See Rx Instructions .Route 10/07/24 aerosol inhaler (Ventolin HFA) .COMPLEX #18 grams umeclidinium 62.5 mcg-vilanterol See Rx Instructions . Route 10/21/24 25 mcg/actuation powdr for .COMPLEX #60 blisters inhalation (Anoro Ellipta) metoprolol succinate 25 mg 25 mg PO DAILY #30 tabs 12/08 tablet,extended release 24 hr (Toprol XL) prasugrel HCl 10 mg tablet 10 mg PO DAILY 30 days #30 tabs 12/31/24 (Effient) famotidine 20 mg tablet See Rx Instructions .Route 0 01/30/25 .COMPLEX #180 tabs ergocalciferol (vitamin D2) 1,250 See Rx Instructions .Route 01/31/25 mcg (50,000 unit) capsule .COMPLEX #12 caps fluoxetine 20 mg capsule (Prozac) 20 mg PO DAILY #90 c aps 01/31/25 nicotine 1 patch transdermal Q24H #42 01/31/25 21mg/24hr-14mg/24hr-7mg/24hr daily patches transderm patches,sequentl gabapentin 100 mg capsule 100 mg PO Q12H PRN pain, sev ere 02/22/25 #14 caps methocarbamol 750 mg tablet 750 mg PO Q8H PRN muscle p ain #30 02/22/25 tabs aspirin 81 mg tablet,delayed See Rx Instructions .Rout e 02/27/25 release .COMPLEX #30 tabs clonazepam 1 mg tablet (Klonopin) 1 mg PO TID PRN anxi ety #90 tabs 02/27/25 losartan 50 mg tablet See Rx Instructions .Route 0 02/27/25 .COMPLEX #30 tabs nitroglycerin 0.4 mg sublingual See Rx Instructions .R oute 02/27/25 tablet .COMPLEX #25 tabs methylprednisolone 4 mg tablets in 4 mg PO DAILY #21 t abs 03/11/25 a dose pack (Medrol (Oscar)) Allergies Allergy/AdvReac Type Severity Reaction Status Date / Time No Known Allergies Allergy Verified 03/11/25 13:37 [facility] Disclaimer: The information contained in this section may have been updated after the patient was seen, as this information can be updated by other users. Medical History Insomnia Daytime somnolence MEGHNA (obstructive sleep apnea) Abnormal findings on diagnostic imaging of heart and coronary circulation Typical angina Abdominal pain Gastroesophageal reflux disease Sore throat Left lower lobe pneumonia Tobacco abuse Surgical History Hx of heart artery stent Mid and Prox LAD 06-18-22 and Mid and Prox RCA 07-31-22 Family History Other No significant family history Social History (Updated 01/31/25 @ 09:54 by Mira Villarreal MA) Smoking Status: Current every day smoker tobacco type: cigarettes packs per day: 1 second hand exposure: No alcohol intake: never substance use type: denies use current occupational status: employed and other Travel in the last 8 weeks?: None household members: spouse housing: house 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 current occupational exposures/hazards: No caffeine: Yes Have you lived/traveled outside [place] in past 30 days?: No Contact w/someone who lives/traveled outside [place] past 30 days?: No Exposure to someone with infectious disease in past 14 days?: No Do you have a fever (greater than 100.4 F or 38 C)?: No Have you tested positive for COVID-19?: No Exposed to someone with COVID-19 in past 14 days?: No Do you have a sore throat?: No Do you have a cough?: No Do you have any weakness?: No Do you have any diarrhea?: No Are you experiencing any unusual bleeding?: No Do you have any muscle aches/pain?: No Do you have any abdominal pain?: No Are you experiencing loss of taste or smell?: No Other Medical History Have you received the Flu Vaccine for this season: No Have you received the Pneumonia Vaccine: No ROS Obtained: Yes All systems reviewed & no additional complaints except as documented Physical Exam General General appearance: alert and in no apparent distress Head Head exam: atraumatic and normocephalic Eye Eye exam: Present PERRL and EOMI ENT ENT exam: Present mucous membranes moist Neck Neck exam: Present normal inspection Chest Chest inspection: Present normal inspection and symmetric chest wall rise Respiratory Respiratory exam: Present normal lung sounds bilaterally; Absent respiratory distress Cardiovascular Cardiovascular exam: Present regular rate and normal rhythm Abdominal Exam Abdominal exam: Present soft; Absent tenderness Extremities Exam Extremities exam: Present normal inspection Back Exam Back exam: Present paraspinal tenderness; Absent CVA tenderness (R), CVA tenderness (L), vertebral tenderness, straight leg raise (R) or straight leg raise (L) Comment: There is left-sided mild to moderate paraspinal tenderness palpation to the left lower lumbar spine, negative paraspinal tenderness to palpation of the right lower lumbar spine, negative C-spine T-spine or L-spine spinal tenderness palpation negative straight leg test bilaterally Neurological Exam Neurological exam: Present alert, oriented X3 and other (Patient has 5 out of 5 strength in the bilateral lower extremities, no gross neurological gross sensation deficit, moves extremities to command) Psychiatric Psychiatric exam: Present normal affect Skin Skin exam: Present warm and dry Medical Decision Making Medical Records Medical records reviewed: Yes I reviewed the patient's medical records. Screening: Per USPSTF and CDC recommendations, given the prevalence of disease in our region, it is our hospital?s policy to screen for HIV and viral Hepatitis for all patients aged 18 and over and those with ongoing risk factors. [place] Inquiry Pt receiving controlled substance: No [place] was queried for this patient: No Vital Signs: 03/11/25 13:33 Temperature 97.8 F Temperature Source Oral Pulse Rate [Left Brachial] 64 Respiratory Rate 16 Blood Pressure [Left Arm] 110/69 Blood Pressure Mean [Left Arm] 82 Blood Pressure Source [Left Arm] Automatic Cuff Blood Pressure Position [Left Arm] Sitting 02 Sat by Pulse Oximetry 97 Oxygen Delivery Method Room Air Orders (Tests/Meds): ED MEDICATIONS Discontinued Medications Generic Name Dose Route Start Last Admin Trade Name Freq PRN Reason Stop Dose Admin Hydrocodone Bitart/Acetaminophen 1 tab 03/11/25 14:00 03/11/25 14:12 Hydrocodone/Apap 5/325 Mg Tablet PO 03/11/25 14:01 1 tab ONCE ONE Administration Lidocaine 1 each 03/11/25 14:00 03/11/25 14:13 Lidocaine 5% Transdermal Patch TD 03/11/25 14:01 1 each ONCE ONE Administration ORDERS Category Date Time Status CT lumbar spine wo con Stat Cat Scan 03/11/25 14:01 Taken Medical Decision Narrative: 54-year-old male presents the emergency department with left lower lumbar spine pain, nonradiating, differential diagnose include but not limited to, degenerative disease lumbar spine, herniated nucleus pulposus, acute sciatica, acute lumbar sacral strain, other musculoskeletal strain/sprain among others. I discussed patient case with attending Dr. Hernandez Will obtain CT lumbar spine without contrast to compare to previous, will also give 5 mg p.o. Hastings for pain as well as 1 Lidoderm patch for symptomatic relief. I reviewed the patient's CT lumbar spine without contrast on the corresponding radiologic report, there is no acute fracture, or acute malalignment lumbar spine, there is multilevel degenerative disc disease at L2-L3 there is an annular bulge causing at least moderate central canal stenosis at L4-L5 there is an annular disc bulge causing central foraminal stenosis, at L5-S1 disc osteophyte complex causing central and foraminal stenosis. I had a long discussion with the patient at the bedside, patient has no red flag signs or symptoms, extremities to command, good strength throughout, mostly has paraspinal/axial lumbar spine pain, no saddle anesthesia given no urinary bladder or bowel dysfunction. I will be prescribing the patient methylprednisone dosing pack, need for anti-inflammatory effect, patient is already on gabapentin, ibuprofen Tylenol as well as muscle relaxer at home. Recommend follow-up with PCP for physical therapy referral MRI of the lumbar spine as well as pain management referral. Patient voiced understanding and agreement with the current discharge plan/treatment plan. Upon discharge, patient did exhibit some pain seeking behaviors as he states we will be sending home with some pain medicine? , Did discuss that we will be treating the patient's acute pain here, but will need to follow-up with pain management/other providers to pursue a more long-term pain management regimen. Critical Care Critical Care Time Critical Care Time: No
--- NOTE | 2025-03-11 14:01 | CT_ITS ---
FINAL REPORT TECHNIQUE: Thin section axial images were obtained through the lumbar spine without contrast. Sagittal and coronal reconstruction images were obtained from the axial data. Exam was performed using dose reduction techniques. CLINICAL HISTORY: Left lower spine pain FINDINGS: There is no acute fracture or acute malalignment of the lumbar spine. Vertebral body height is preserved. There is multilevel degenerative disc disease. At L2-3 is an annular bulge causing at least moderate central stenosis. At L4-5 there is an annular disc bulge causing central and foraminal stenosis. At L5-S1 is a disc osteophyte complex causing central and foraminal stenosis. IMPRESSION: No acute fracture. Degenerative disc disease. Consider MRI. Reviewed, Interpreted and Dictated by Shawanda Mccormick MD Transcribed by Tara Rodriguez Authenticated and [facility]
[2025-03-11] MEDS: HYDROCODONE/APAP 5/325 MG TABLET 1 TAB PO (14:12)
[2025-03-11] MEDS: LIDOCAINE 5% TRANSDERMAL PATCH 1 EACH TD (14:13)
[2025-03-11 15:00] VITALS: BP 99/59; PULSE 57; RESP 17; O2SAT 95
[2025-03-11 15:30] VITALS: BP 102/54; PULSE 55; RESP 18; O2SAT 95
[2025-03-11 15:45] VITALS: BP 109/64; PULSE 57; RESP 18; O2SAT 96
[2025-03-11 15:56] VITALS: BP 100/56; PULSE 65; RESP 16; TEMP 36.6; O2SAT 98
== END 2025-03-11 16:09 | disposition home or self-care (01) ==
PROVIDERS: Emergency Provider Student in an Organized Health Care Education/Training Program; PCP Family Medicine
DX: M51.360 Other intervertebral disc degeneration, lumbar region with discogenic back pain only (principal); R20.2 Paresthesia of skin; F17.210 Nicotine dependence, cigarettes, uncomplicated
CPT/HCPCS: 72131; 99283; 99284